=== PATIENT | female | born 1955 | race Caucasian/White ===

== ENCOUNTER → 2017-06-06 | Outpatient (REF) | payer BC ==
[2017-06-06 10:22] LABS: D-DIMER QUANT 451.7 ng/ml (<500)
[2017-06-06 10:37] LABS: URIC ACID 2.4 MG/DL (2.6-6.0)
[2017-06-06 10:38] LABS: ERYTHROCYTE SEDIMENTATION RATE 8 mm/hr (0-30)
== END ==
LOC: M LABDRAW1 09:41
DX: M25.561 Pain in right knee (principal); R60.9 Edema, unspecified
CPT/HCPCS: 84550

== ENCOUNTER → 2017-07-18 | Outpatient (CLI) | payer BC ==
[2017-07-18 16:37] LABS: BASO % 0.3 % (0.0-1.0); EOS # 0.1 10^3/uL (0.0-0.50); EOS % 0.5 % (0.0-3.0); HEMATOCRIT 45.9 % (36.0-47.0); IMMATURE GRANULOCYTE % 0.3 % (0-3.0); LYMPH # 2.6 10^3/uL (1.5-4.5); LYMPH % 27.6 % (24.0-44.0); MEAN CORPUSCULAR HGB CONC 32.7 g/dl (32.0-36.5); MEAN CORPUSCULAR VOLUME 88.8 fl (80.0-96.0); MONO # 0.4 10^3/uL (0.0-0.8); MONO % 4.3 % (0.0-5.0); NEUTROPHILS # 6.2 10^3/uL (1.8-7.7); PLATELET COUNT, AUTOMATED 197 10^3/uL (150-450); RED BLOOD COUNT 5.17 10^6/uL (4.00-5.40); RED CELL DISTRIBUTION WIDTH 12.2 % (11.5-14.5); WHITE BLOOD COUNT 9.2 10^3/uL (4.0-10.0)
[2017-07-18 16:54] LABS: FOLATE > 24.0 NG/ML; VITAMIN B12 LEVEL 1064 PG/ML
[2017-07-18 16:59] LABS: ERYTHROCYTE SEDIMENTATION RATE 2 mm/hr (0-30)
[2017-07-18 17:03] LABS: ALBUMIN 3.9 GM/DL (3.2-5.2); ALBUMIN/GLOBULIN RATIO 1.11 (1.00-1.93); ALKALINE PHOSPHATASE 88 U/L (45-117); ALT/SGPT 19 U/L (12-78); ANION GAP 4 MEQ/L (8-16); AST/SGOT 15 U/L (7-37); BILIRUBIN,TOTAL 0.4 MG/DL (0.2-1.0); BLOOD UREA NITROGEN 15 MG/DL (7-18); CALCIUM LEVEL 9.3 MG/DL (8.8-10.2); CARBON DIOXIDE LEVEL 28 MEQ/L (21-32); CHLORIDE LEVEL 107 MEQ/L (98-107); CREATININE FOR GFR 0.85 MG/DL (0.55-1.30); FREE T4 0.95 NG/DL (0.76-1.46); GLOMERULAR FILTRATION RATE > 60.0 (>45); GLUCOSE, FASTING 135 MG/DL (70-100); POTASSIUM SERUM 4.8 MEQ/L (3.5-5.1); SODIUM LEVEL 139 MEQ/L (136-145); TOTAL PROTEIN 7.4 GM/DL (6.4-8.2)
[2017-07-20 14:16] LABS: Lyme Disease IgG/IgM Antibodie <0.91 ISR (0.00-0.90); Lyme Disease IgM Ab Quantitati <0.80 index (0.00-0.79)
== END ==
LOC: M WUC 13:42
DX: R03.0 Elevated blood-pressure reading, without diagnosis of hypertension (principal)
CPT/HCPCS: 82746

== ENCOUNTER 2018-03-27 07:28 | Emergency (ER) | payer BC ==
[2018-03-27 08:09] LABS: BASO % 0.4 % (0.0-1.0); EOS # 0.1 10^3/uL (0.0-0.50); EOS % 0.9 % (0.0-3.0); HEMOGLOBIN 14.6 g/dl (12.0-15.5); IMMATURE GRANULOCYTE % 0.3 % (0-3.0); LYMPH # 2.7 10^3/uL (1.5-4.5); LYMPH % 39.6 % (24.0-44.0); MEAN CORPUSCULAR HEMOGLOBIN 29.1 pg (27.0-33.0); MEAN CORPUSCULAR HGB CONC 33.2 g/dl (32.0-36.5); MEAN CORPUSCULAR VOLUME 87.6 fl (80.0-96.0); MONO # 0.4 10^3/uL (0.0-0.8); NEUTROPHILS # 3.6 10^3/uL (1.8-7.7); NEUTROPHILS % 52.8 % (36.0-66.0); PLATELET COUNT, AUTOMATED 178 10^3/uL (150-450); RED BLOOD COUNT 5.02 10^6/uL (4.00-5.40); RED CELL DISTRIBUTION WIDTH 12.7 % (11.5-14.5); WHITE BLOOD COUNT 6.9 10^3/uL (4.0-10.0)
[2018-03-27] MEDS: PANTOPRAZOLE 40MG INJ (PROTONIX) (C9113) IV (08:14)
[2018-03-27] MEDS: GI COCKTAIL 50ML BTL(HYOSCYAMINE/MAALOX/LIDOCAINE VISCOUS)(1:3:1) PO (08:14)
[2018-03-27 08:26] LABS: INR 1.03; PROTHROMBIN TIME 13.6 SECONDS (12.1-14.4)
[2018-03-27 08:27] LABS: PARTIAL THROMBOPLASTIN TIME 32.3 SECONDS (25.4-37.6)
[2018-03-27 08:32] LABS: ALBUMIN 3.8 GM/DL (3.2-5.2); ALBUMIN/GLOBULIN RATIO 1.12 (1.00-1.93); ALKALINE PHOSPHATASE 72 U/L (45-117); ALT/SGPT 26 U/L (12-78); ANION GAP 7 MEQ/L (8-16); AST/SGOT 18 U/L (7-37); BILIRUBIN,DIRECT 0.2 MG/DL (0.0-0.2); BILIRUBIN,TOTAL 0.7 MG/DL (0.2-1.0); BLOOD UREA NITROGEN 7 MG/DL (7-18); CALCIUM LEVEL 9.1 MG/DL (8.8-10.2); CARBON DIOXIDE LEVEL 28 MEQ/L (21-32); CHLORIDE LEVEL 104 MEQ/L (98-107); CPK CREATINE PHOSPHOKINASE 130 U/L (26-192); CREATININE FOR GFR 0.71 MG/DL (0.55-1.30); GLOMERULAR FILTRATION RATE > 60.0 (>45); GLUCOSE, FASTING 96 MG/DL (70-100); LIPASE 95 U/L (73-393); MB/CK RELATIVE INDEX 1.85 (< OR =4); POTASSIUM SERUM 3.5 MEQ/L (3.5-5.1); SODIUM LEVEL 139 MEQ/L (136-145); TOTAL PROTEIN 7.2 GM/DL (6.4-8.2); TROPONIN I < 0.02 NG/ML (< 0.10)
[2018-03-27] MEDS: GASTROGRAFIN SOLUTION 30ML PO ×2 (10:05→10:31)
[2018-03-27] MEDS ORDERED: ISOVUE-370 76% 100ML VIAL (Q9967) As Ordered (11:19)
== END 2018-03-27 12:37 | disposition home or self-care (01) ==
LOC: M ED 07:28
DX: R10.13 Epigastric pain (principal); K86.9 Disease of pancreas, unspecified; K21.9 Gastro-esophageal reflux disease without esophagitis; Z86.19 Personal history of other infectious and parasitic diseases; Z91.030 Bee allergy status
CPT/HCPCS: C9113

== ENCOUNTER → 2018-08-19 | Outpatient (REF) | payer BC ==
[~2018-08-19] MED LIST: AUGM500T34 PO; NORC1TAB5 PO; PROT1TAB2 PO; TUMS500C PO
[2018-08-21 14:34] LABS: HPV HYBRID CAPTURE II Negative (Negative)
== END ==
LOC: M SFHCWAGY 12:11
PROVIDERS: ATTEND Nurse Practitioner Family
DX: Z12.4 Encounter for screening for malignant neoplasm of cervix (principal)
CPT/HCPCS: 87624; G0123

== ENCOUNTER → 2018-08-26 | Outpatient (CLI) | payer BC ==
--- NOTE | 2018-08-27 04:41 | REP ---
Clinical: Pelvic pain. Right ovarian cyst . Technique: Transabdominal pelvic ultrasound followed by transvaginal examination for better evaluation of the endometrium and adnexa with color Doppler evaluation of the ovaries. Findings: Bladder is unremarkable and measures 8.5 x 10.4 x 7.3 cm . Heterogeneous anteverted uterus measures 8.3 x 3.9 x 5.5 cm. Incidental small parenchymal calcifications are suggested. The endometrial complex measures 13.1 mm thickness. No discrete uterine or endometrial abnormalities are appreciated. Right ovary measures 3.7 x 2.0 x 3.1 cm and includes 2.7 cm cyst. Left ovary measures 2.3 x 1.3 x 1.0 cm and appears normal. Impression: 1. Heterogeneous age-related changes to the uterus. 2. 2.7 cm right ovarian cyst.
== END ==
LOC: M WHC 09:10
PROVIDERS: ATTEND Nurse Practitioner Family
DX: N83.201 Unspecified ovarian cyst, right side (principal)

== ENCOUNTER → 2018-10-16 | Outpatient (CLI) | payer BC | LOC: M SMT 14:52 | PROVIDERS: ATTEND Obstetrics & Gynecology | DX: N83.299 Other ovarian cyst, unspecified side (principal) ==

== ENCOUNTER 2018-11-05 21:42 | Inpatient (IN) | payer BC ==
[~2018-11-05] VITALS: Ht 160 cm; Wt 66.1 kg
[2018-11-05 22:21] LABS: HEMATOCRIT 44.5 % (36.0-47.0); HEMOGLOBIN 14.7 g/dl (12.0-15.5); MEAN CORPUSCULAR VOLUME 90.8 fl (80.0-96.0); PLATELET COUNT, AUTOMATED 185 10^3/uL (150-450); WHITE BLOOD COUNT 11.3 10^3/uL (4.0-10.0)
[2018-11-05 22:47] LABS: ALBUMIN 3.8 GM/DL (3.2-5.2); ALT/SGPT 19 U/L (12-78); AMYLASE 64 U/L (25-115); BILIRUBIN,TOTAL 0.5 MG/DL (0.2-1.0); BLOOD UREA NITROGEN 12 MG/DL (7-18); CARBON DIOXIDE LEVEL 29 MEQ/L (21-32); CHLORIDE LEVEL 104 MEQ/L (98-107); CREATININE FOR GFR 0.83 MG/DL (0.55-1.30); GLOMERULAR FILTRATION RATE > 60.0 (>45); GLUCOSE, FASTING 111 MG/DL (70-100); LIPASE 91 U/L (73-393); POTASSIUM SERUM 3.9 MEQ/L (3.5-5.1); SODIUM LEVEL 139 MEQ/L (136-145); TOTAL PROTEIN 7.3 GM/DL (6.4-8.2)
[2018-11-05] MEDS ORDERED: NS 1,000 ML IV ONE (23:00)
[2018-11-05] MEDS ORDERED: DICYCLOMINE 10 MG CAP PO ONE (23:00)
[2018-11-05 23:19] LABS: APPEARANCE, URINE CLEAR (CLEAR); BACTERIA, URINE AUTO NEGATIVE (NEGATIVE); BILIRUBIN, URINE AUTO NEGATIVE (NEGATIVE); BLOOD, URINE BLOOD NEGATIVE (NEGATIVE); COLOR, URINE YELLOW (YELLOW); GLUCOSE, URINE (UA) AUTO NEGATIVE (NEGATIVE); KETONE, URINE AUTO 1+ mg/dL (NEGATIVE); LEUKOCYTE ESTERASE, URINE AUTO NEGATIVE (NEGATIVE); MUCUS, URINE SMALL (NEGATIVE); NITRITE, URINE AUTO NEGATIVE (NEGATIVE); PROTEIN, URINE AUTO NEGATIVE (NEGATIVE); RBC, URINE AUTO 4 /HPF (0-3); SPECIFIC GRAVITY URINE AUTO 1.028 (1.002-1.035); SQUAMOUS EPITHELIAL CELL UR AU 0 /HPF (0-6); UROBILINOGEN, URINE AUTO 0.2 mg/dL (0.0-2.0); WBC, URINE AUTO 0 /HPF (0-3)
[2018-11-06] MEDS ORDERED: MORPHINE 4 MG/ML 1ML VIAL/SYRINGE (J2270) IV ONE ×2 (00:15→05:00)
[2018-11-06] MEDS ORDERED: ISOVUE-370 76% 100ML VIAL (Q9967) As Ordered ONE (00:24)
[2018-11-06] MEDS ORDERED: ONDANSETRON 4MG/2ML VIAL (J2405) IV ONE (01:00)
[2018-11-06] MEDS ORDERED: fentaNYL 100 MCG/2 ML INJECTION (J3010) IV ONE (01:45)
--- NOTE | 2018-11-06 03:36 | REPVR ---
EXAM: CT Abdomen and Pelvis With Contrast EXAM DATE/TIME: 11/06/2018 12:32 AM CLINICAL HISTORY: 63 years old, female; Abdominal pain; Localized; Lower; Additional info: Lower abd pain severe, radiates to back TECHNIQUE: Imaging protocol: Axial computed tomography images of the abdomen and pelvis with intravenous contrast. Coronal and sagittal reformatted images were created and reviewed. Radiation optimization: All CT scans at this facility use at least one of these dose optimization techniques: automated exposure control; mA and/or kV adjustment per patient size (includes targeted exams where dose is matched to clinical indication); or iterative reconstruction. Contrast material: ISOVUE 370; Contrast volume: 100 ml; Contrast route: IV; COMPARISON: CT ABD/PEL W/IV ORAL CONTRAS 03/27/2018 11:15 AM FINDINGS: Liver: Within the left hepatic lobe, there is a 7 mm hypodense lesion. This is too small to characterize further, but stable compared to the prior study. Within the left hepatic lobe anteriorly, a 0.7 x 0.5 cm enhancing lesion is identified, which is stable in size and previously described as a hemangioma. Additional enhancing pathology cannot be excluded. Gallbladder and bile ducts: The gallbladder is partially contracted, without discrete gallstones. No ductal dilation. Pancreas: A few surgical clips are identified adjacent to the body of the pancreas with interval resolution of the enhancing lesion described in the previous CT. These postoperative changes are new. Spleen: Normal. No splenomegaly. Adrenals: No mass. Kidneys and ureters: Unremarkable as visualized. No hydronephrosis. Stomach and bowel: There is significant wall thickening of the antrum of the stomach, suggestive of gastritis. Small bowel wall thickening is visualized, including the duodenum, suggestive of enteritis. There is gaseous and fecal distention of bowel within the anterior pelvis, consistent with the cecum. The cecum has migrated from the right lower quadrant. There is narrowing of the proximal ascending colon which is transversely oriented. Early cecal volvulus cannot be excluded. Mildly prominent small bowel loops are visualized within the pelvis with an air-fluid level. Appendix: Not visualized. Intraperitoneal space: There is mild stranding of the abdominal pelvic peritoneum, which is suggestive of inflammation, infection, or ischemic change. Mild abdominal and pelvic ascites is visualized, which is new. 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 Lymph nodes: A subcentimeter right pericardial lymph node is visualized. Bladder: Unremarkable as visualized. Reproductive: Prominent uterine vessels are identified. Bones/joints: Hypertrophic degenerative changes are noted within the spine. Slight anterolisthesis of L3 on L4 and L4 on L5. Soft tissues: Unremarkable. IMPRESSION: 1. There is significant wall thickening of the antrum of the stomach, suggestive of gastritis. Small bowel wall thickening is visualized, including the duodenum, suggestive of enteritis. 2. There is mild stranding of the abdominal pelvic peritoneum. Differential considerations include inflammation, infection, and ischemic change. 3. There is gaseous and fecal distention of bowel within the anterior pelvis, consistent with the cecum. The cecum has migrated from the right lower quadrant. There is narrowing of the proximal ascending colon which is transversely oriented. Early cecal volvulus cannot be excluded. A follow-up CT abdomen/pelvis is recommended. 4. A few surgical clips are identified adjacent to the body of the pancreas with interval resolution of the enhancing lesion described in the previous CT. These postoperative changes are new. 5. Mild abdominal and pelvic ascites is visualized, which is new. 6. Within the left hepatic lobe, there is a 7 mm hypodense lesion. This is too small to characterize further, but stable compared to the prior study. Within the left hepatic lobe anteriorly, a 0.7 x 0.5 cm enhancing lesion is identified, which is stable in size and previously described as a hemangioma. Additional enhancing pathology cannot be excluded. 7. 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 8. Additional findings described above. Electronically signed by: Olivier Au On 11/06/2018 03:35:55 AM
[2018-11-06] MEDS ORDERED: NS 500 ML IV ONE (05:00)
[2018-11-06] MEDS ORDERED: VITA400C56 PO (05:33)
[2018-11-06] MEDS ORDERED: GLUCTAB6 PO (05:33)
[2018-11-06] MEDS ORDERED: CALC500T38 PO (05:33)
[2018-11-06] MEDS ORDERED: [UNRECOGNIZED DRUG - OTHER] PO (05:33)
[2018-11-06] MEDS ORDERED: HYDR1CRE TOP (05:33)
[2018-11-06] MEDS ORDERED: VITMTA PO (05:33)
[2018-11-06] MEDS ORDERED: ACET160T4 PO (05:33)
[2018-11-06] MEDS ORDERED: TURM1CAP5 PO (05:33)
[2018-11-06] MEDS ORDERED: D3 H2000 PO (05:33)
[2018-11-06] MEDS ORDERED: BACITAB PO (05:33)
--- NOTE | 2018-11-06 05:42 | HPEPDOC ---
General Date of Admission 11/06/2018 Date of Service: Nov 06, 2018 Attending Physician: KALEIGH CACERES MD Chief Complaint The patient is a 63-year-old female admitted with a reason for visit of [place] nix. Source: Patient History of Present Illness Patient is a 63-year-old female, presenting to the emergency room on account of abdominal pain. Abdominal pain was of sudden onset yesterday afternoon after eating a large amount of pizza. There was no other associated symptom, there was no nausea, dose, no diarrhea, patient had regular bowel movement. Today, she did not eat a whole lot, but after suppertime pain was worse. She described the pain as a sharp, constant pain, with radiation to her back. On evaluation in the emergency room, CT abdomen and pelvis showed significant wall thickening of the antrum of the stomach suggestive of gastritis. There was also small bowel wall thickening visualized including duodenum suggestive of enteritis. There was also mild stranding of abdominal pelvic peritoneum with differential for inflammation, infection, ischemic change. Patient denied any chills, fever, chest pain, shortness of breath. Home Medications Scheduled Ascorbate Calcium (Vitamin C) 500 Mg Tablet, 500 MG PO DAILY, (Reported) Cholecalciferol (Vitamin D3) (Vitamin D3) 2,000 Unit Capsule, 2,000 UNIT PO DAILY, (Reported) Gluc Powell/Chondro Powell A/Vit C/Mn (Glucosamine Chondroitin Tab) 1 Each Tablet, 1 TAB PO DAILY, (Reported) L.acidoph/L.bulg/B.bif/S.therm (Bacid Caplet) 1 Each Tablet, 1 TAB PO DAILY, (Reported) Multivitamins (Thera M Plus Tablet) 1 Each Tablet, 1 TAB PO DAILY, (Reported) Turmeric/Turmeric Ext/Pepr Ext (Turmeric Complex 500 mg Cap) 1 Each Capsule, 1 CAP PO DAILY, (Reported) Vitamin E (Vitamin E) 400 Unit Capsule, 400 UNIT PO DAILY, (Reported) [Gastromend] , 2 CAP PO BID, (Reported) 1000, 1600 Scheduled PRN Acetaminophen (Children's Tylenol) 160 Mg Tab.chew, 320 MG PO Q4H PRN for PAIN / FEVER, (Reported) Hydrocortisone (Hydrocortisone) 453.6 Gm Cream..g., 1 DOSE TOP BID PRN for ITCHING, (Reported) ON STOMACH NEEDED Allergies Coded Allergies: bee venom protein (honey bee) (Verified Allergy, Unknown, 11/05/18) Past Medical History Medical History Paraganglioma tumor. GERD Surgical History Paraganglioma removal Appendectomy. Family History Father: CAD Mother: Breast cancer Social History * Smoker: Denies Alcohol: Denies Drugs: denies A-FIB/CHADSVASC A-FIB History Current/History of A-Fib/PAF?: No Current PO Anticoag Therapy: No Review of Systems Other systems A 10 point pertinent review of systems was completed, negative except as stated in the history of presenting illness. Physical Examination Other physical findings GENERAL: NAD SKIN : Warm, dry intact HEENT: Atraumatic, normocephalic, PERRL, moist mucous membrane CARDIOVASCULAR: Regular rate and rhythm, S1S2, no JVD, no edema, distal pulses + and palpable RESP: CTAB, no accessory muscle use noted ABDOMEN: BS+, distended +tender MS: no joint deformities NEURO: Alert and oriented x 3, CN2-12 grossly intact PSYCH: no anxiety or agitation, appropriate mood and affect. Vital Signs Vital Signs Date Time Temp Pulse Resp B/P (MAP) Pulse Ox O2 Delivery O2 Flow Rate FiO2 11/06/18 05:02 98.0 84 18 164/89 (114) 97 Room Air Laboratory Data Labs 24H Laboratory Tests 2 11/05/18 22:03: Urine Appearance CLEAR, Urine Color YELLOW, Urine pH 5.0, Urine Specific [place] 1.028, Urine Protein NEGATIVE, Urine Glucose (UA) NEGATIVE, Urine Ketones 1+H, Urine Urobilinogen 0.2, Urine Bilirubin NEGATIVE, Urine Leukocyte Esterase NEGATIVE, Urine Blood NEGATIVE, Urine Nitrite NEGATIVE, Urine WBC (Auto) 0, Urine RBC (Auto) 4H, Urine Hyaline Casts (Auto) 0, Urine Bacteria (Auto) NEGATIVE, Urine Squamous Epithelial Cells 0, Urine Mucus (Auto) SMALL, Urine Sperm (Auto) 11/05/18 22:13: Nucleated Red Blood Cells % (auto) 0.0, Anion Gap 6L, Glomerular Filtration Rate > 60.0, Blood Urea Nitrogen 12, Creatinine 0.83, Sodium Level 139, Potassium Level 3.9, Chloride Level 104, Carbon Dioxide Level 29, Calcium Level 9.0, Aspartate Amino Transf (AST/SGOT) 17, Alanine Aminotransferase (ALT/SGPT) 19, Alkaline Phosphatase 80, Total Bilirubin 0.5, Total Protein 7.3, Albumin 3.8, Albumin/Globulin Ratio 1.09, Amylase Level 64, Lipase 91 11/06/18 03:59: Lactic Acid Level 0.8 CBC/BMP Laboratory Tests 11/05/18 22:13 Red Blood Count 4.90, Mean Corpuscular Volume 90.8, Mean Corpuscular Hemoglobin 30.0, Mean Corpuscular Hemoglobin Concent 33.0, Red Cell Distribution Width 12.5, Calcium Level 9.0, Aspartate Amino Transf (AST/SGOT) 17, Alanine Aminotransferase (ALT/SGPT) 19, Alkaline Phosphatase 80, Total Bilirubin 0.5, Total Protein 7.3, Albumin 3.8 Assessment/Plan Acute gastroenteritis -Elevated white blood count 11.3, but localized symptoms reported by patient -Gastric rest, normal saline at 100 mL per hour -. Keep nothing by mouth -Protonix twice a day IV -Advance diet based on tolerance DVT prophylaxis -Lovenox daily Advanced care planning -CODE STATUS is full resuscitation Plan / VTE VTE Prophylaxis Ordered?: Yes ALENA CARLTONP Nov 06, 2018 05:42
[2018-11-06] MEDS: NS 1,000 ML IV SCH ×2 (05:46→15:26)
[2018-11-06] MEDS: ENOXAPARIN 40 MG/0.4 ML SYRINGE (J1650) SC SCH (10:22)
[2018-11-06] MEDS: PANTOPRAZOLE 40MG INJ (PROTONIX) (C9113) IV SCH ×2 (10:22→21:49)
--- NOTE | 2018-11-06 12:25 | IPN ---
DATE: 11/06/2018 Allyssa was admitted with abdominal pain in the hospitalist service. She was seen in an interim bed. She had abrupt onset of lower abdominal pain, distention, and nausea. Two days ago it has gotten worse over the last few days, she came to the emergency room, she had a CT abdomen and pelvis that suggested gastritis. They also made note of gaseous distention, fecal distention in the cecum which was narrowed at the proximal ascending colon suggesting possible early cecal volvulus. She has a medical history significant for an appendectomy a few years ago by Dr. Page. In April of this year she underwent removal of a paraganglioma at [facility], it was completely excised. Other than that she just has a history of reflux. When I went to see her in the emergency room she had vomited for the first time and felt that her abdomen had become more distended. PHYSICAL EXAM: 143/89, pulse 62, respiratory rate 18, 100% Oxygen saturation. General appearance: Resting comfortably, no distress. HEENT: Unremarkable. Lungs are clear. Heart regular rhythm. Abdomen soft, distended, bowel sounds are present, most tenderness in lower abdomen, no epigastric pain, no peripheral edema. LABS: Were not repeated this morning. IMPRESSION: Abdominal pain. I am skeptical this is related to gastritis. Most of her pain is lower abdomen and there is quite a bit of distention. Possible of cecal volvulus is present. I spoke with Dr. Lassiter who is covering surgical consult today. He will seen the patient in consultation. Repeat CT of the abdomen and pelvis is advised. I had originally had ordered this but cancelled the order after discussion with Dr. Lassiter as I would rather he asses the patient and decide whether he wants oral contrast, IV contrast etc. IV fluids ordered. Patient is nothing by mouth. Pain medications have been ordered. Deep vein thrombosis prophylaxis is ordered.
[2018-11-06] MEDS ORDERED: ONDANSETRON 4MG/2ML VIAL (J2405) IV PRN ×2 (12:30→20:00)
--- NOTE | 2018-11-06 14:58 | REP ---
CT ABDOMEN AND PELVIS WITHOUT CONTRAST: CT abdomen and pelvis performed without oral or IV contrast. Sagittal and coronal reconstruction images are performed. This is a followup exam to the study 11/06/2018 at 12:33 a.m. Visualized lung bases demonstrate mild fibroatelectatic changes. Contrast material is seen in the gallbladder. The liver, spleen, adrenals, pancreas, and kidneys are grossly unremarkable and unchanged. Metallic clips are again seen in the region of the pancreatic head. No gross adenopathy is seen. There is again dilatation of the cecum with a segment of diffuse narrowing of the ascending colon. The adjacent mesentery is diffusely edematous and appears somewhat twisted. The findings are most consistent with cecal volvulus. There is mild free fluid in the pelvis. Contrast is seen in the mildly distended bladder. There is no free air. IMPRESSION: Findings most consistent with cecal volvulus. Cecum is moderately distended. There is segmental narrowing of the ascending colon with adjacent mesenteric edema and apparent mesenteric twisting. Mild free fluid in the pelvis. No free air. Electronically Signed by Braydon Sky MD 11/09/2018 06:29 P
[2018-11-06 15:56] VITALS: BP 135/63
[2018-11-06] MEDS ORDERED: ONDANSETRON 4MG/2ML VIAL (J2405) As Ordered ONE (16:35)
[2018-11-06] MEDS ORDERED: ROCURONIUM BROMIDE 50 MG/5 ML VIAL As Ordered ONE ×2 (16:35→17:59)
[2018-11-06] MEDS ORDERED: dexameTHASONE 4 MG/ML 1ML VIAL (J1100) As Ordered ONE (16:35)
[2018-11-06] MEDS ORDERED: propofoL 200 MG/20 ML VIAL As Ordered ONE (16:35)
[2018-11-06] MEDS ORDERED: LIDOCAINE 2% INJ 100 MG/5 ML SDV (FOR ANES.) As Ordered ONE (16:35)
[2018-11-06] MEDS ORDERED: fentaNYL 250 MCG/5 ML INJECTION (J3010) As Ordered ONE (16:39)
[2018-11-06] MEDS ORDERED: MIDAZOLAM INJ 2 MG/2 ML VIAL (J2250) As Ordered ONE (16:39)
[2018-11-06] MEDS ORDERED: BUPIVACAINE HCL 0.25% 30 ML VIAL As Ordered ONE (16:44)
[2018-11-06] MEDS ORDERED: LIDOCAINE 1% SDV INJ 30 ML VIAL As Ordered ONE (16:44)
[2018-11-06] MEDS ORDERED: UNASYN 1.5 GM VIAL As Ordered ONE (16:53)
--- NOTE | 2018-11-06 17:05 | CR.PDOC ---
General Surgery Consultation Date of Consultation 11/06/18 History and Physical CONSULT REPORT FOR: Torey Muñoz MD REASON FOR CONSULTATION: abdominal pain ?cecal volvulus HISTORY OF PRESENT ILLNESS: Patient admitted in the hospital overnight with complaints of a 2 day history of generalized abdominal pain. Patient reports she was in her usual state of health when after eating pizza last Sunday started having sudden onset of generalized crampy, colicky abdominal pain. This persisted through Sunday evening that that time patient was not having any nausea, she did have a bowel movement Sunday which was normal but this didn't relieve her pain or discomfort. She tried to eat some cereal but got her nauseated. The pain persisted and worsened throughout the day that she presented to the emergency room last night. Overnight patient continues to have sharp mid lower abdominal pain with radiation to both right and left abdomen as well as to her back and through to this morning was nauseated and burping. She does not re call passing any flatus. She did have a small bowel movement last night. She threw up this morning. Patient continues to complain of discomfort. On evaluation in the emergency room there was a suspicion of possible cecal volvulus on initial CT done yesterday evening. There were also some other findi ngs of possible duodenitis, enteritis, gastritis. Her pain is mainly centered in the mid lower abdomen and periumbilical area. She denies any prior episodes of similar symptoms, any prior episodes of peptic ulcer disease. 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 She does not have any prior episodes of bowel obstruction. She had an appendectomy back in 2016. She had prior imaging that shows the cecum was previously located at the right lower quadrant area which is no longer the case on her most recent imaging. I was asked to consult and see her with regards to possibility of her having cecal volvulus.. Me seeing hernias for a repeat noncontrast CT of the abdomen to evaluate for any interval changes. Time that I saw her she continues to have discomfort on her mid lower abdomen. She's been afebrile throughout her stay here in the hospital, hemodynamically stable. She continues not to be able to pass flatus and has been burping and mildly nauseated. PAST MEDICAL HISTORY: Paraganglioma tumor. gastroesophageal reflux disease PAST SURGICAL HISTORY: INCLUDES: 1. Paraganglioma removal via an open exploration at the upper midline done at [facility] in April 2018 2. Laparoscopic appendectomy Appendectomy In 2016 3. section PREVIOUS ANESTHESIA REACTIONS: Denies ALLERGIES: Please see below. FAMILY HISTORY: Noncontributory. HOME MEDICATIONS: Please see below. REVIEW OF SYSTEMS: GENERAL: Denies chills, reports weight gain, reports feeling febrile yesterday. Patient was in her usual state of health prior to start her symptoms Sunday HEENT: Denies blurred vision and double vision. Denies ear symptoms. Denies hoarseness. NECK: Denies any neck pain CARDIOVASCULAR: Denies chest pain and palpitations. MUSCULOSKELETAL: Denies arthralgias, back pain and thrombophlebitis. SKIN: Denies rash. NEUROLOGIC: Denies headache, stroke and transient ischemic attack. PSYCHIATRIC: Denies anxiety and depression. ENDOCRINE: Denies thyroid disease. HEMATOLOGY/ONCOLOGY: Denies bleeding or clotting disorder. HEART: Denies any chest pains, palpitations, paroxysmal dyspnea, orthopnea. PULMONARY: Denies chronic cough, dyspnea and wheezing. GASTROINTESTINAL: See HPI. Patient reports episodes of diarrhea, prior history of C. difficile infection. GENITOURINARY: Denies dysuria, frequency, hematuria and nocturia. ENDOCRINE: Denies polydipsia, polyphagia, polyuria, heat or cold intolerance. INFECTIOUS: Denies any recent upper respiratory tract infection, UTI, need for use of antibiotics. NUTRITION: Reports poor appetite since start of symptoms. PHYSICAL EXAMINATION: VITALS SIGNS: Please see below. GENERAL APPEARANCE:Patient seen, laying in bed, awake, alert, and oriented. Mildly uncomfortable, in no acute distress. SKIN: Warm and dry. HEENT: Normocephalic, atraumatic. [place] palpebral conjunctiva, anicteric sclerae. Lips and mucosa appear mildly dry. NECK: Supple, no thyromegaly. No obvious jugular venous distention. LUNGS: Clear to auscultation bilaterally. No wheezing appreciated. HEART: No chest wall abnormalities. Regular rate and rhythm with no murmurs appreciated. ABDOMEN: Abdomen is mildly distended, soft, healed upper midline incision, Pfannenstiel incision. Slightly more prominent lower abdomen and slightly more distended. She has tenderness on the lower abdomen at the midline periumbilical area with slight referred tenderness to the right side when palpating on the left lower abdomen. I did not appreciate any rebound or guarding. She is nontender in the upper abdomen and epigastric area. EXTREMITIES: Extremities have no deformities. No edema identified ANCILLARIES: . LABORATORY DATA: Please see below. IMAGING STUDIES: CT scan abdomen and pelvis Findings most consistent with cecal volvulus. Cecum is moderately distended. There is segmental narrowing of the ascending colon with adjacent mesenteric edema and apparent mesenteric twisting. Mild free fluid in the pelvis. No free air. IMPRESSION AND PLAN: Cecal volvulus with partial bowel obstruction Patient has been having symptoms for 3 days now and has continued evidence of partial bowel obstruction with her cecum appearing to be moderately distended, tapering off the ascending colon in the cecum was been displaced towards the left side with tethering of the involved vessels consistent with a transaxial rotation at the cecum or cecal volvulus. There is no signs of peritonitis on examination. No free air or pneumatosis on imaging. She has a normal lactic acid on her laboratories. So most likely she does not have FULL on ischemia or necrosis of the involved bowels but certainly this would be at risk of ischemia and even perforation if this persists, worsens or evolves to a full on mesenteric twist. She does have some evidence of a localized acute inflammation in the abdomen involving the peritoneum, mild ascites, the involved vessels and bowels. As this has been present for roughly 3 days now, unlikely that this is to resolve. I think the most prudent step will be to bring her to the operating room in to evaluate for the reason for the cecal volvulus. This may or may not be related to the adhesions from her most recent surgery but certainly this involves a very mobile cecum to allow for the transaxial rotation. This most likely will require some lysis of adhesion and some form of cecopexy versus performing an ileocecal resection. Have discussed with her the rationale, risks and benefits of either procedure. We will start with laparoscopy but there is a good possibility to me and I'll then need an open laparotomy incision. I further discussed with her the expected postoperative course. Consent was obtained from the patient after answering her questions. She also had her daughter on the phone and I have explained to her condition to return when we need to go to surgery and answered her questions. Vital Signs Vital Signs Date Time Temp Pulse Resp B/P (MAP) Pulse Ox O2 Delivery O2 Flow Rate FiO2 11/06/18 10:30 62 143/89 (107) 100 Nasal Cannula 2.0 11/06/18 05:46 16 11/06/18 05:02 98.0 I&Os I&O- Last 24 Hours up to 6 AM 11/06/18 06:00 Intake Total 1000 ml Balance 1000 ml Laboratory Data Labs 24H Laboratory Tests 2 11/05/18 22:03: Urine Appearance CLEAR, Urine Color YELLOW, Urine pH 5.0, Urine Specific [place] 1.028, Urine Protein NEGATIVE, Urine Glucose (UA) NEGATIVE, Urine Ketones 1+H, Urine Urobilinogen 0.2, Urine Bilirubin NEGATIVE, Urine Leukocyte Esterase NEGATIVE, Urine Blood NEGATIVE, Urine Nitrite NEGATIVE, Urine WBC (Auto) 0, Urine RBC (Auto) 4H, Urine Hyaline Casts (Auto) 0, Urine Bacteria (Auto) NEGATIVE, Urine Squamous Epithelial Cells 0, Urine Mucus (Auto) SMALL, Urine Sperm (Auto) 11/05/18 22:13: Nucleated Red Blood Cells % (auto) 0.0, Anion Gap 6L, Glomerular Filtration Rate > 60.0, Blood Urea Nitrogen 12, Creatinine 0.83, Sodium Level 139, Potassium Level 3.9, Chloride Level 104, Carbon Dioxide Level 29, Calcium Level 9.0, Aspartate Amino Transf (AST/SGOT) 17, Alanine Aminotransferase (ALT/SGPT) 19, Alkaline Phosphatase 80, Total Bilirubin 0.5, Total Protein 7.3, Albumin 3.8, Albumin/Globulin Ratio 1.09, Amylase Level 64, Lipase 91 11/06/18 03:59: Lactic Acid Level 0.8 CBC/BMP Laboratory Tests 11/05/18 22:13 Red Blood Count 4.90, Mean Corpuscular Volume 90.8, Mean Corpuscular Hemoglobin 30.0, Mean Corpuscular Hemoglobin Concent 33.0, Red Cell Distribution Width 12.5, Calcium Level 9.0, Aspartate Amino Transf (AST/SGOT) 17, Alanine Aminotransferase (ALT/SGPT) 19, Alkaline Phosphatase 80, Total Bilirubin 0.5, Total Protein 7.3, Albumin 3.8 Home Medications Scheduled Ascorbate Calcium (Vitamin C) 500 Mg Tablet, 500 MG PO DAILY, (Reported) Cholecalciferol (Vitamin D3) (Vitamin D3) 2,000 Unit Capsule, 2,000 UNIT PO DAILY, (Reported) Gluc Powell/Chondro [place] A/Vit C/Mn (Glucosamine Chondroitin Tab) 1 Each Tablet, 1 TAB PO DAILY, (Reported) L.acidoph/L.bulg/B.bif/S.therm (Bacid Caplet) 1 Each Tablet, 1 TAB PO DAILY, (Reported) Multivitamins (Thera M Plus Tablet) 1 Each Tablet, 1 TAB PO DAILY, (Reported) Turmeric/Turmeric Ext/Pepr Ext (Turmeric Complex 500 mg Cap) 1 Each Capsule, 1 CAP PO DAILY, (Reported) Vitamin E (Vitamin E) 400 Unit Capsule, 400 UNIT PO DAILY, (Reported) [Gastromend] , 2 CAP PO BID, (Reported) 1000, 1600 Scheduled PRN Acetaminophen (Children's Tylenol) 160 Mg Tab.chew, 320 MG PO Q4H PRN for PAIN / FEVER, (Reported) Hydrocortisone (Hydrocortisone) 453.6 Gm Cream..g., 1 DOSE TOP BID PRN for ITCHING, (Reported) ON STOMACH NEEDED Allergies Coded Allergies: bee venom protein (honey bee) (Verified Allergy, Unknown, 11/05/18) JOSE HOOVER MD Nov 06, 2018 15:57
[2018-11-06] MEDS ORDERED: BUPIVACAINE LIPOSOME/PF 1.3% 20ML VIAL (13.3MG/ML)(EXPAREL)(C9290 PER1MG) As Ordered ONE (17:23)
[2018-11-06] MEDS ORDERED: SUGAMMADEX SODIUM 500 MG/5 ML VIAL (BRIDION) As Ordered ONE (17:48)
[2018-11-06] MEDS ORDERED: ACETAMINOPHEN 1000MG 100ML IV BTL (OFIRMEV) (J0131 PER 10MG) As Ordered ONE (17:49)
[2018-11-06] MEDS ORDERED: KETOROLAC 60 MG/2 ML VIAL (J1885) As Ordered ONE (18:11)
[2018-11-06] MEDS ORDERED: fentaNYL 100 MCG/2 ML INJECTION (J3010) As Ordered ONE (18:23)
[2018-11-06] MEDS ORDERED: METOCLOPRAMIDE INJ 10MG/2ML VIAL (J2765) IV PRN (20:00)
[2018-11-06] MEDS ORDERED: LR 1,000 ML IV SCH (20:00)
[2018-11-06] MEDS ORDERED: fentaNYL 100 MCG/2 ML INJECTION (J3010) IV PRN (20:00)
[2018-11-06] MEDS ORDERED: PERCOCET 5MG/325MG TAB PO PRN (20:00)
[2018-11-06] MEDS ORDERED: MEPERIDINE INJ 25 MG/ML VIAL (J2175) IV PRN (20:00)
[2018-11-06 20:18] LABS: AMYLASE, BODY FLUID 34 U/L (NOT ESTABLISHED); SOURCE, BODY FLUID AMYLASE PERITONEAL; SOURCE, BODY FLUID LIPASE PERITONEAL
[2018-11-06 20:30] VITALS: BP 135/94
[2018-11-06 21:00] VITALS: BP 157/80
[2018-11-06] MEDS: LR 1,000 ML IV SCH (21:50)
[2018-11-06 22:00] VITALS: BP 135/74
[2018-11-06 23:00] VITALS: BP 133/81
[2018-11-07] VITALS (7 sets, daily range): BP systolic 114–151; BP diastolic 62–82
[2018-11-07] MEDS: PIPERACILLIN/TAZOBACTAM SOD 3.375 GM in D5W MINI-BAG PLUS 50 ML IV SCH ×5 (00:53→23:30)
[2018-11-07] MEDS: LR 1,000 ML IV SCH (05:45)
[2018-11-07 06:25] LABS: BASO % 0.2 % (0.0-1.0); EOS # 0.1 10^3/uL (0.0-0.50); EOS % 0.6 % (0.0-3.0); HEMATOCRIT 38.8 % (36.0-47.0); LYMPH # 3.1 10^3/uL (1.5-4.5); LYMPH % 31.5 % (24.0-44.0); MEAN CORPUSCULAR HGB CONC 32.7 g/dl (32.0-36.5); MEAN CORPUSCULAR VOLUME 91.7 fl (80.0-96.0); MONO # 0.7 10^3/uL (0.0-0.8); MONO % 7.7 % (0.0-5.0); NEUTROPHILS # 5.8 10^3/uL (1.8-7.7); NEUTROPHILS % 59.6 % (36.0-66.0); PLATELET COUNT, AUTOMATED 137 10^3/uL (150-450); RED BLOOD COUNT 4.23 10^6/uL (4.00-5.40); WHITE BLOOD COUNT 9.7 10^3/uL (4.0-10.0)
[2018-11-07 06:30] LABS: HEMOGLOBIN 12.7 g/dl (12.0-15.5)
[2018-11-07 06:52] LABS: ALBUMIN 2.6 GM/DL (3.2-5.2); ALT/SGPT 14 U/L (12-78); AMYLASE 43 U/L (25-115); BILIRUBIN,TOTAL 0.8 MG/DL (0.2-1.0); BLOOD UREA NITROGEN 8 MG/DL (7-18); CALCIUM LEVEL 7.9 MG/DL (8.8-10.2); CARBON DIOXIDE LEVEL 30 MEQ/L (21-32); CHLORIDE LEVEL 109 MEQ/L (98-107); CREATININE FOR GFR 0.69 MG/DL (0.55-1.30); GLOMERULAR FILTRATION RATE > 60.0 (>45); GLUCOSE, FASTING 84 MG/DL (70-100); LIPASE 75 U/L (73-393); POTASSIUM SERUM 3.6 MEQ/L (3.5-5.1); SODIUM LEVEL 142 MEQ/L (136-145); TOTAL PROTEIN 5.7 GM/DL (6.4-8.2)
--- NOTE | 2018-11-07 08:11 | ROOPDOC ---
[facility] Report Of Operation Report of Operation DATE OF PROCEDURE: 11/06/18 PREPROCEDURE DIAGNOSES: Cecal Volvulus. POSTPROCEDURE DIAGNOSES: Small and large bowel obstruction secondary to intraabdominal adhesions, partial cecal volvulus, mobile cecum and right colon. ?intraabdominal abscess PROCEDURE: Diagnostic Laparoscopy, Laparoscopic Lysis of Adhesions, release of small and right colon obstruction with cecopexy. SURGEON: Lucas Medrano MD ANESTHESIA: General Anesthesia. ESTIMATED BLOOD LOSS: Approximately 20 mL. COMPLICATIONS: none. 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 PROCEDURE NOTE: Patient has a very mobile right colon as well as a long, tortuous transverse colon. Omental adhesions pulled the right colon towards the left side, left upper quadrant. There were also adhesions to the retroperitoneum and the distal ileum rotated underneath the cecum and caught with adhesions to the retroperitoneum and right lower quadrant forming an internal hernia compressing on the distal ileum causing obstruction at this point.I think this is the main obstructing point. The combination of the mobile right colon and tortuous transverse colon with rotation of the right colon to the left side of the abdomen maybe causing a partial cecal volvulus. DESCRIPTION OF PROCEDURE: Patient was given a dose of Unasyn 3 g IV for prophylactic antibiotic. She is brought to the operating room, placed supine on the table. Sequential Compression boots placed on both lower extremities for DVT prophylaxis. A Paulino catheter placed for urine output monitoring. Her abdomen was then prepped and draped widely in usual sterile fashion.We paused for a surgical timeout using both pre-incision safety checklist to verify correct patient, procedure site and additional clinical information prior to beginning the procedure I began the procedure using a left upper quadrant incision. A Veress needle was inserted in a controlled fashion. Intra-abdominal placement confirmed with saline drop technique. CO2 insufflation started to pressure 15 mmHg. There is uniform distention of the abdomen. Using the same incision a Veress needle was inserted in a controlled fashion. Incision site was inspected for injury and none was found. I used a 30 5 mm laparoscope for the procedure. Initial diagnostic laparoscopy shows minimal adhesions to the abdominal wall. The falciform ligament is either attenuated or has been fully dissected off the abdominal wall. There are markedly distended loops of bowel in the left upper quadrant and also in the midabdomen and towards the pelvis area and I could see the colon being rotated towards the mid abdomen though it was hard to initially differentiate if this was the cecum or transverse colon. There is some dense adhesion of omentum pulling the distal transverse colon towards the left upper quadrant area. There is also some adhesion that seems to tether some of the bowels including the cecum and the right colon and small bowel from the right lower quadrant to the middle of the abdomen. The colon itself seems to be movable left to right. I placed a 5 mm infraumbilical incision, a 5 mm left lower quadrant incision and later on in the 5 mm suprapubic incision on under direct guidance. Patient was repositioned multiple times to allow for gravity to full bowels away from our review. She was primarily positioned on a mild Trendelenburg, left side up position. I first tried to move the colon back to its anatomic position. There seems to be something tethering this to the mid abdomen which seems to be coming off posteriorly. This was initially difficult to find exactly where the cecum was. So I switched to following the distended loops of bowel to the terminal ileum. This was going underneath the loop of colon and the colon itself seems to be tethered retroperitoneally. I found the single thick band that was getting it to adhere to the retroperitoneum and this is where the small bowel passed through underneath the area causing an internal hernia. This was divided and the right c olon was released. I was able then to confirm that this was the area of the cecum and this was returned to its anatomic position to the right lower quadrant area. There is only flimsy lateral attachments of the cecum that was allowing it to rotate fully towards the left of the midline and this includes the ascending colon. She also has floppy and elongated transverse colon which was also partially tethered towards the left upper quadrant area starting from the distal transverse colon pulling this towards the left side. I then released the omental adhesions that was doing this and also the previously noted right quadrant adhesion. After doing this I was able to return both the right colon and transverse colon to its anatomic position. I then noticed that there was this milky thick fluid that was mainly located in the pelvis though there were some collections in the left upper quadrant area more likely dispersed from the pneumoperitoneum as well as from the position of the patient. I took some sample for culture likewise to test for amylase and lipase. I look for possible cause of this but I did not see any necrotic tissues or tissues or any other sites of inflammation or infection. The visible milky fluid collection was suctioned off. I then ran the bowel starting at the distended ligament of Treitz and bowel seems to be fully free at about the early ileum to started to get decompressed and back to its normal of diameter. Patient already had a previous appendectomy and I could see the staple lines from previous appendectomy. Other findings include a enlarged cystic ovary on the right side and most likely absence of an ovary on the left side the uterus is also mildly enlarged. The abdomen was then thoroughly irrigated until we had clear returns. At this point I then make decision whether to resect the cecum or create a cecopexy. I felt that the main cause of the rotation of the colon was more the postoperative adhesions though she would remain at risk for local volvulus due to the mobility of the right colon. All portions of the bowel seems to be healthy at this point and there was no signs of any ischemia or any persistent obstruction. Thus I made a decision to perform cecopexy incision for resection. I used 3-0V LOC to saw the cecum and part of the ascending colon to the right lower quadrant area. After this I left the 19 Nick drain through the left lower quadrant port and I placed this over in the pelvic area where we had most of the milky fluid collections. A final look at the bowels looks like the previously decompressed loops of bowel starting to fill up. Patient also is noticeably have lower hard stools on her right colon signifying constipation. I did not find any other significant findings. The abdomen was then deflated. All ports were removed. The drain was secured to the skin with 2-0 silk. All skin incisions closed with 4-0 Monocryl subcuticular fashion and Dermabond was used for postoperative dressings. Patient remained stable throughout the procedure she was successfully awakened and extubated and brought to the recovery room in stable condition. LUCAS HOOVER MD Nov 07, 2018 08:11
[2018-11-07] MEDS ORDERED: MIRALAX *UNIT DOSE* 17GM PACKET PO ONE (08:45)
[2018-11-07] MEDS: PANTOPRAZOLE 40MG INJ (PROTONIX) (C9113) IV SCH (08:46)
[2018-11-07] MEDS: ENOXAPARIN 40 MG/0.4 ML SYRINGE (J1650) SC SCH (08:46)
[2018-11-07] MEDS: LACTOBACILLUS ACIDOPHILUS CAP (BACID) PO SCH ×3 (09:00→21:00)
[2018-11-07] MEDS: ACETAMINOPHEN TAB 650MG DOSE (2X325MG) PO PRN ×3 (12:33→21:20)
--- NOTE | 2018-11-07 13:07 | IPNPDOC ---
Subjective General Date/Time Seen The patient was seen on 11/07/18 at 08:38. Subject Chief Complaint/History Patient did well following laparoscopic lysis of adhesion and cecopexy yesterday. She had developed a bowel obstruction likewise partial cecal volvulus. She denies any nausea, no further abdominal cramping. She reports passing flatus. Current Medications Current Medications Current Medications Enoxaparin Sodium (Lovenox) 40 mg DAILY SC ; Start 11/06/18 at 09:00 Fentanyl Citrate (Sublimaze) 25 mcg Q5MP PRN IV MODERATE PAIN (PS 4-7); Start 11/06/18 at 20:00 Home Med (Med Rec Complete!) ASDIRECTED XX ; Start 11/06/18 at 05:45; Stop 11/06/18 at 05:45; Status DC Lactated Ringer's 1,000 ml @ 100 mls/hr Q10H IV Last administered on 11/06/18at 21:50; Start 11/06/18 at 19:45 Lactated Ringer's 1,000 ml @ 100 mls/hr Q10H IV ; Start 11/06/18 at 20:00; Stop 11/06/18 at 21:00; Status DC Meperidine HCl (Demerol) 12.5 mg Q5MP PRN IV SHIVERING; Start 11/06/18 at 20:00; Stop 11/06/18 at 21:00; Status DC Metoclopramide HCl (REGLAN INJection) 10 mg Q6HP PRN IV NAUSEA OR VOMITING; Start 11/06/18 at 20:00; Stop 11/06/18 at 21:00; Status DC Ondansetron HCl (ZOFRAN INJection) 4 mg Q4HP PRN IV NAUSEA OR VOMITING Last administered on 11/06/18at 12:40; Start 11/06/18 at 12:30 Ondansetron HCl (ZOFRAN INJection) 4 mg Q4HP PRN IV NAUSEA OR VOMITING; Start 11/06/18 at 20:00; Stop 11/06/18 at 21:00; Status DC Oxycodone/ Acetaminophen (Percocet 5mg/ 325mg Tablet) 1 tab ASDIRECTED PRN PO MILD/MODERATE PAIN (PS 1-7); Start 11/06/18 at 20:00; Stop 11/06/18 at 21:00; Status DC Pantoprazole Sodium (Protonix) 40 mg BID IV Last administered on 11/06/18at 2 1:49; Start 11/06/18 at 09:00; Stop 11/06/18 at 21:00; Status DC Pantoprazole Sodium (Protonix) 40 mg DAILY IV ; Start 11/07/18 at 09:00 Piperacillin Sod/ Tazobactam Sod 3.375 gm/Dextrose 50 ml @ 50 mls/hr Q6H IV Last administered on 11/07/18at 05:30; Start 11/06/18 at 23:00 Sodium Chloride 1,000 ml @ 100 mls/hr Q10H IV Last administered on 11/06/18at 05:46; Start 11/06/18 at 05:26; Stop 11/06/18 at 19:35; Status DC Allergies Coded Allergies: bee venom protein (honey bee) (Verified Allergy, Unknown, 11/05/18) Objective Physical Examination Examination GENERAL APPEARANCE: Sitting up on the bed, comfortable. SKIN: Warm and moist. HEENT: Normocephalic, atraumatic. [place] palpebral conjunctiva, anicteric s clerae. Lips and mucosa appear moist. NECK: Supple, no thyromegaly. No obvious jugular venous distention. LUNGS: Clear to auscultation bilaterally. No wheezing appreciated. HEART: No chest wall abnormalities. Regular rate and rhythm with no murmurs appreciated. ABDOMEN: Abdomen is minimally distended and mildly tympanitic to percussion, soft, laparoscopic port sites times tree, clean dry and intact with Dermabond on it. She has a left lower quadrant Nick drain with light pink serosanguineous fl uid. No signs of purulent drainage. Nontender on palpation. EXTREMITIES: Extremities have no deformities. No edema identified. Vital Signs Vital Signs Date Time Temp Pulse Resp B/P (MAP) Pulse Ox O2 Delivery O2 Flow Rate FiO2 11/07/18 06:00 97.6 71 18 128/73 (91) 98 2.0 11/06/18 10:30 Nasal Cannula I&Os I&O- Last 24 Hours up to 6 AM 11/07/18 06:00 Intake Total 1790 ml Output Total 1650 ml Balance 140 ml Laboratory Data Labs 24H Laboratory Tests 2 11/06/18 18:30: Body Fluid Amylase Source PERITONEAL, Body Fluid Amylase 34, Body Fluid Lipase Source PERITONEAL, Body Fluid Lipase 39 11/07/18 05:27: Immature Granulocyte % (Auto) 0.4, White Blood Count 9.7, Red Blood Count 4.23, Hemoglobin 12.7#, Hematocrit 38.8, Mean Corpuscular Volume 91.7, Mean Corpuscular Hemoglobin 30.0, Mean Corpuscular Hemoglobin Concent 32.7, Red Cell Distribution Width 12.6, Platelet Count 137L, Neutrophils (%) (Auto) 59.6, Lymphocytes (%) (Auto) 31.5, Monocytes (%) (Auto) 7.7H, Eosinophils (%) (Auto) 0.6, Basophils (%) (Auto) 0.2, Neutrophils # (Auto) 5.8, Lymphocytes # (Auto) 3.1, Monocytes # (Auto) 0.7, Eosinophils # (Auto) 0.1, Basophils # (Auto) 0.0, Nucleated Red Blood Cells % (auto) 0.0, Anion Gap 3L, Glomerular Filtration Rate > 60.0, Blood Urea Nitrogen 8, Creatinine 0.69, Sodium Level 142, Potassium L evel 3.6, Chloride Level 109H, Carbon Dioxide Level 30, Calcium Level 7.9L, Aspartate Amino Transf (AST/SGOT) 13, Alanine Aminotransferase (ALT/SGPT) 14, Alkaline Phosphatase 62, Total Bilirubin 0.8#, Total Protein 5.7#L, Albumin 2.6#L, Albumin/Globulin Ratio 0.84L, Amylase Level 43, Lipase 75 CBC/BMP Laboratory Tests 11/07/18 05:27 Red Blood Count 4.23, Mean Corpuscular Volume 91.7, Mean Corpuscular Hemoglobin 30.0, Mean Corpuscular Hemoglobin Concent 32.7, Red Cell Distribution Width 12.6, Neutrophils (%) (Auto) 59.6, Lymphocytes (%) (Auto) 31.5, Monocytes (%) (Auto) 7.7 H, Eosinophils (%) (Auto) 0.6, Basophils (%) (Auto) 0.2, Neutrophils # (Auto) 5.8, Lymphocytes # (Auto) 3.1, Monocytes # (Auto) 0.7, Eosinophils # (Auto) 0.1, Basophils # (Auto) 0.0, Calcium Level 7.9 L, Aspartate Amino Transf (AST/SGOT) 13, Alanine Aminotransferase (ALT/SGPT) 14, Alkaline Phosphatase 62, Total Bilirubin 0.8 #, Total Protein 5.7 #L, Albumin 2.6 #L Microbiology Microbiology 11/06/18 Gram Stain, Received Pending 11/06/18 Body Fluid Culture, Received Pending Impression Postop day 1 following laparoscopic lysis of adhesion, cecopexy I reviewed my intraoperative findings with the patient. She has one of her daughters at the bedside at the time I saw her. She had intra-abdominal adhesions pulling her colon towards the left side of this also pulled the distal ileum underneath the colon with some retroperitoneal adhesions causing a blockage over that area. Over all the bowels appear healthy. She has some unexplained whitish thick fluid collection that I presume this an infected collection that I sent for microbiology as well as amylase and lipase area did not find any suitable explanation for why the purulent collection is present. I left a drain at the area and currently she is not having any purulent drainage. She is not showing any signs of sepsis. I'll give her a dose of MiraLAX as she seems to be constipated now that the obstruction was opened up. Discontinue Paulino catheter Trial of clear liquids. Patient instructed to ambulate to hallways. Plan / VTE VTE Prophylaxis Ordered?: Yes JOSE HOOVER MD Nov 07, 2018 08:38
--- NOTE | 2018-11-07 15:12 | IPN ---
DATE: 11/07/2018 Allyssa went to the operating room (OR) last night for cecal volvulus, lysis of adhesions. Appreciate Dr. Menchaca's intervention. Today, she feels much better. Pain is much improved. She is concerned about her history of Clostridium (C) difficile colitis and currently being on Zosyn. PHYSICAL EXAM: Afebrile. Vital signs stable. Lungs: Clear. Heart: Regular rate and rhythm. Abdomen: Soft. Less distended. Slightly tender. Dressings present. LABS: White count is down 9.7. Electrolytes look unremarkable. IMPRESSION: Post-op day #1 status post diagnostic laparoscopic lysis of adhesions relieving small bowel and right colon obstruction. PLAN: Continue intravenous (IV) antibiotics per Dr. Lassiter. Discontinue those when okay with surgery. Probiotics ordered.
[2018-11-08 02:00] VITALS: BP 135/71
[2018-11-08] MEDS: ACETAMINOPHEN TAB 650MG DOSE (2X325MG) PO PRN ×2 (02:15→08:21)
[2018-11-08] MEDS: PIPERACILLIN/TAZOBACTAM SOD 3.375 GM in D5W MINI-BAG PLUS 50 ML IV SCH (05:27)
[2018-11-08 06:00] VITALS: BP 131/76
[2018-11-08 06:54] LABS: HEMOGLOBIN 12.5 g/dl (12.0-15.5); MEAN CORPUSCULAR HEMOGLOBIN 29.1 pg (27.0-33.0); MEAN CORPUSCULAR HGB CONC 32.9 g/dl (32.0-36.5); MEAN CORPUSCULAR VOLUME 88.6 fl (80.0-96.0); PLATELET COUNT, AUTOMATED 133 10^3/uL (150-450); RED BLOOD COUNT 4.29 10^6/uL (4.00-5.40); WHITE BLOOD COUNT 6.6 10^3/uL (4.0-10.0)
[2018-11-08 07:13] LABS: BLOOD UREA NITROGEN 7 MG/DL (7-18); CALCIUM LEVEL 8.1 MG/DL (8.8-10.2); CARBON DIOXIDE LEVEL 29 MEQ/L (21-32); CHLORIDE LEVEL 110 MEQ/L (98-107); CREATININE FOR GFR 0.64 MG/DL (0.55-1.30); GLOMERULAR FILTRATION RATE > 60.0 (>45); GLUCOSE, FASTING 92 MG/DL (70-100); POTASSIUM SERUM 3.5 MEQ/L (3.5-5.1); SODIUM LEVEL 143 MEQ/L (136-145)
[2018-11-08] MEDS: LACTOBACILLUS ACIDOPHILUS CAP (BACID) PO SCH ×3 (08:20→21:00)
[2018-11-08] MEDS: ENOXAPARIN 40 MG/0.4 ML SYRINGE (J1650) SC SCH (08:20)
[2018-11-08] MEDS: PANTOPRAZOLE 40MG INJ (PROTONIX) (C9113) IV SCH (08:20)
[2018-11-08 10:00] VITALS: BP 133/83
[2018-11-08] MEDS ORDERED: BISACODYL 10 MG SUPP PR ONE (10:30)
[2018-11-08] MEDS: MOM 30ML SUSPENSION UDC PO SCH ×2 (10:32→21:00)
--- NOTE | 2018-11-08 10:51 | IPNPDOC ---
Subjective General Date/Time Seen The patient was seen on 11/08/18 at 10:48. Subject Chief Complaint/History Patient reports she is comfortable though she had some crampy lower abdominal pain last night. She denies any associated nausea. She is passing flatus. She is ambulating the hallways. She is tolerating clear liquids. Current Medications Current Medications Current Medications Acetaminophen (Tylenol Tab) 650 mg Q4HP PRN PO PAIN OR FEVER Last administered on 11/08/18at 08:21; Start 11/07/18 at 12:00 Enoxaparin Sodium (Lovenox) 40 mg DAILY SC Last administered on 11/08/18at 08:20; Start 11/06/18 at 09:00 Fentanyl Citrate (Sublimaze) 25 mcg Q5MP PRN IV MODERATE PAIN (PS 4-7); Start 11/06/18 at 20:00; Stop 11/07/18 at 08:43; Status DC Home Med (Med Rec Complete!) ASDIRECTED XX ; Start 11/06/18 at 05:45; Stop 11/06/18 at 05:45; Status DC Lactated Ringer's 1,000 ml @ 100 mls/hr Q10H IV Last administered on 11/06/18at 21:50; Start 11/06/18 at 19:45; Stop 11/07/18 at 16:14; Status DC Lactated Ringer's 1,000 ml @ 100 mls/hr Q10H IV ; Start 11/06/18 at 20:00; Stop 11/06/18 at 21:00; Status DC Lactobacillus Acidophilus (Bacid) 2 ea TID PO ; Start 11/07/18 at 09:00 Magnesium Hydroxide (Milk Of Magnesia) 30 ml BID PO Last administered on at 10:32; Start 11/08/18 at 09:00 Meperidine HCl (Demerol) 12.5 mg Q5MP PRN IV SHIVERING; Start 11/06/18 at 20:00; Stop 11/06/18 at 21:00; Status DC Metoclopramide HCl (REGLAN INJection) 10 mg Q6HP PRN IV NAUSEA OR VOMITING; Start 11/06/18 at 20:00; Stop 11/06/18 at 21:00; Status DC Ondansetron HCl (ZOFRAN INJection) 4 mg Q4HP PRN IV NAUSEA OR VOMITING Last administered on 11/06/18at 12:40; Start 11/06/18 at 12:30 Ondansetron HCl (ZOFRAN INJection) 4 mg Q4HP PRN IV NAUSEA OR VOMITING; Start 11/06/18 at 20:00; Stop 11/06/18 at 21:00; Status DC Oxycodone/ Acetaminophen (Percocet 5mg/ 325mg Tablet) 1 tab ASDIRECTED PRN PO MILD/MODERATE PAIN (PS 1-7); Start 11/06/18 at 20:00; Stop 11/06/18 at 21:00; Status DC Pantoprazole Sodium (Protonix) 40 mg BID IV Last administered on 11/06/18at 21:49; Start 11/06/18 at 09:00; Stop 11/06/18 at 21:00; Status DC Pantoprazole Sodium (Protonix) 40 mg DAILY IV Last administered on 11/08/18at 08:20; Start 11/07/18 at 09:00 Piperacillin Sod/ Tazobactam Sod 3.375 gm/Dextrose 50 ml @ 50 mls/hr Q6H IV Last administered on 11/08/18at 05:27; Start 11/06/18 at 23:00; Stop 11/08/18 at 09:20; Status DC Sodium Chloride 1,000 ml @ 100 mls/hr Q10H IV Last administered on 11/06/18at 05:46; Start 11/06/18 at 05:26; Stop 11/06/18 at 19:35; Status DC Allergies Coded Allergies: bee venom protein (honey bee) (Verified Allergy, Unknown, 11/05/18) Objective Physical Examination Examination GENERAL APPEARANCE: Looks very comfortable. SKIN: Warm and moist. HEENT: Normocephalic, atraumatic. [place] palpebral conjunctiva, anicteric sclerae. Lips and mucosa appear moist. NECK: Supple, no thyromegaly. No obvious jugular venous distention. LUNGS: Clear to auscultation bilaterally. No wheezing appreciated. HEART: No chest wall abnormalities. Regular rate and rhythm with no murmurs appreciated. ABDOMEN: Abdomen is minimally distended, soft, relatively flat. Port site i ncisions with Dermabond, clean dry and intact. Nick drain with mostly serous output no. EXTREMITIES: Extremities have no deformities. No edema identified. Vital Signs Vital Signs Date Time Temp Pulse Resp B/P (MAP) Pulse Ox O2 Delivery O2 Flow Rate FiO2 11/08/18 10:00 97.1 68 16 133/83 (100) 98 11/07/18 12:00 2.0 11/06/18 10:30 Nasal Cannula I&Os I&O- Last 24 Hours up to 6 AM 11/08/18 06:00 Intake Total 1640 ml Output Total 1355 ml Balance 285 ml Laboratory Data Labs 24H Laboratory Tests 2 11/08/18 06:07: Nucleated Red Blood Cells % (auto) 0.0, Anion Gap 4L, Glomerular Filtration Rate > 60.0, Blood Urea Nitrogen 7, Creatinine 0.64, Sodium Level 143, Potassium Level 3.5, Chloride Level 110H, Carbon Dioxide Level 29, Calcium Level 8.1L CBC/BMP Laboratory Tests 11/08/18 06:07 Red Blood Count 4.29, Mean Corpuscular Volume 88.6, Mean Corpuscular Hemoglobin 29.1, Mean Corpuscular Hemoglobin Concent 32.9, Red Cell Distribution Width 12.4, Calcium Level 8.1 L Microbiology Microbiology 11/06/18 Gram Stain - Final, Complete 11/06/18 Body Fluid Culture - Final, Complete Impression Postop day 2 after laparoscopic lysis of adhesion and release of small bowel and colon obstruction, cecopexy partial cecal volvulus Continues to do well though she reports she sometimes still is having some crampy discomfort. She is passing flatus, no bowel movements yet. She denies any nausea. She is trying on clears. I'll advance her to soft diet. I'll put her on a scheduled bowel regimen. I continue to encourage her to ambulate. I think when there is clear prove that she is having regular bowel function that we would be able to send her home, she is able to tolerate diet. She has this unexplained weight milky fluid collection in the pelvis that I sent for amylase, lipase which was normal also sent for Gram stain and culture. This shows small amount of WBCs and no organisms growing in them. I Turned antibiotic. Given negative cultures I'll stop the antibiotics, continue monitoring with the drain. She does have a prior history of C. difficile colitis of the keep her on prolonged antibiotics if she doesn't need to. Plan / VTE VTE Prophylaxis Ordered?: Yes JOES HOOVER MD Nov 08, 2018 10:51
[2018-11-08] MEDS: IBUPROFEN 600 MG TAB PO PRN ×2 (13:58→20:20)
[2018-11-08 14:00] VITALS: BP 121/78
--- NOTE | 2018-11-08 14:49 | IPN ---
DATE: 11/08/2018 Allyssa is doing well. She thinks she might try to pass some flatus. No nausea. Abdominal pain is resolving. She is walking in the hallways. VITAL SIGNS: Stable. Afebrile. LUNGS: Clear. HEART: Regular rate and rhythm. ABDOMEN: Soft, nontender, nondistended. LABORATORIES: Complete blood count (CBC) unremarkable. Chemistry profile unremarkable. No growth on fluid from surgery. IMPRESSION: Postoperative day #2 status post laparoscopic lysis of adhesions for cecal vault volvulus. PLAN: Probable discharge tomorrow if taking diet well and passing flatus. Antibiotics were discontinued today by surgery.
[2018-11-08 18:00] VITALS: BP 120/77
[2018-11-08 22:00] VITALS: BP 125/74
[2018-11-09] MEDS: ACETAMINOPHEN TAB 650MG DOSE (2X325MG) PO PRN ×3 (01:32→21:16)
[2018-11-09 02:00] VITALS: BP 137/77
[2018-11-09 06:00] VITALS: BP 141/82
[2018-11-09 06:11] LABS: MEAN CORPUSCULAR HEMOGLOBIN 28.9 pg (27.0-33.0); MEAN CORPUSCULAR HGB CONC 32.5 g/dl (32.0-36.5); MEAN CORPUSCULAR VOLUME 88.9 fl (80.0-96.0); PLATELET COUNT, AUTOMATED 148 10^3/uL (150-450); WHITE BLOOD COUNT 7.2 10^3/uL (4.0-10.0)
[2018-11-09 06:38] LABS: BLOOD UREA NITROGEN 9 MG/DL (7-18); CALCIUM LEVEL 8.1 MG/DL (8.8-10.2); CARBON DIOXIDE LEVEL 28 MEQ/L (21-32); CHLORIDE LEVEL 110 MEQ/L (98-107); CREATININE FOR GFR 0.68 MG/DL (0.55-1.30); GLOMERULAR FILTRATION RATE > 60.0 (>45); GLUCOSE, FASTING 107 MG/DL (70-100); POTASSIUM SERUM 3.8 MEQ/L (3.5-5.1); SODIUM LEVEL 142 MEQ/L (136-145)
[2018-11-09] MEDS: MOM 30ML SUSPENSION UDC PO SCH (07:30)
[2018-11-09] MEDS: ENOXAPARIN 40 MG/0.4 ML SYRINGE (J1650) SC SCH (07:30)
[2018-11-09] MEDS: LACTOBACILLUS ACIDOPHILUS CAP (BACID) PO SCH ×3 (07:30→21:00)
[2018-11-09] MEDS: PANTOPRAZOLE 40MG INJ (PROTONIX) (C9113) IV SCH (07:30)
[2018-11-09 10:00] VITALS: BP 113/68
[2018-11-09] MEDS: IBUPROFEN 600 MG TAB PO PRN (10:59)
--- NOTE | 2018-11-09 11:59 | IPN ---
DATE: 11/09/2018 Allyssa does not feel ready to go home. She has not really been passing much stool and has some lower abdominal pain. PHYSICAL EXAMINATION: Vital signs stable. Lungs clear. Heart regular rate and rhythm. Abdomen is soft, slightly distended, slightly tender. LABS: CBC and BMP are unremarkable. PLAN: Will keep her another day and plan discharge tomorrow if okay with surgery.
[2018-11-09 14:00] VITALS: BP 130/74
[2018-11-09 18:00] VITALS: BP 126/65
[2018-11-09] MEDS ORDERED: SENOKOT S TAB PO SCH (21:00)
[2018-11-09 22:00] VITALS: BP 134/84
[2018-11-10 02:00] VITALS: BP 151/79
[2018-11-10 06:00] VITALS: BP 146/84
[2018-11-10 06:52] LABS: HEMATOCRIT 39.7 % (36.0-47.0); MEAN CORPUSCULAR HGB CONC 32.7 g/dl (32.0-36.5); MEAN CORPUSCULAR VOLUME 88.6 fl (80.0-96.0); PLATELET COUNT, AUTOMATED 156 10^3/uL (150-450); RED BLOOD COUNT 4.48 10^6/uL (4.00-5.40); WHITE BLOOD COUNT 6.3 10^3/uL (4.0-10.0)
[2018-11-10 07:19] LABS: BLOOD UREA NITROGEN 9 MG/DL (7-18); CALCIUM LEVEL 8.2 MG/DL (8.8-10.2); CARBON DIOXIDE LEVEL 28 MEQ/L (21-32); CHLORIDE LEVEL 111 MEQ/L (98-107); CREATININE FOR GFR 0.66 MG/DL (0.55-1.30); GLOMERULAR FILTRATION RATE > 60.0 (>45); GLUCOSE, FASTING 91 MG/DL (70-100); POTASSIUM SERUM 3.7 MEQ/L (3.5-5.1); SODIUM LEVEL 144 MEQ/L (136-145)
[2018-11-10] MEDS: PANTOPRAZOLE 40MG INJ (PROTONIX) (C9113) IV SCH (07:49)
[2018-11-10] MEDS: ENOXAPARIN 40 MG/0.4 ML SYRINGE (J1650) SC SCH (07:50)
[2018-11-10] MEDS: LACTOBACILLUS ACIDOPHILUS CAP (BACID) PO SCH (07:50)
[2018-11-10 10:00] VITALS: BP 157/79
[2018-11-10] MEDS: IBUPROFEN 600 MG TAB PO PRN (11:31)
--- NOTE | 2018-11-11 00:07 | DSES ---
DATE OF ADMISSION: 11/06/2018 DATE OF DISCHARGE: 11/10/2018 Allyssa feels well. She walked in the halls. She ate lunch without any difficulties. She had positive abdominal pain for incisions, but feels able to go home. PHYSICAL EXAMINATION: Vital signs stable. Afebrile. Lungs clear. Her abdomen is soft, nontender and nondistended. LABORATORY: Sodium 144, potassium 3.7, BUN 9, creatinine 0.9, glucose 91, white count 6.3, hemoglobin 13, platelets 256. IMPRESSION: 1. Cecal volvulus, status post lysis of adhesions. Reduction of the volvulus by Dr. Lassiter. She has recovered well and seems stable for discharge. 2. Gastritis that is probably reactive from the volvulus. [place] like it did not need any further treatment. DISPOSITION: She is discharged home in improved and stable condition. She will followup with her primary care provider in a week. Activity as tolerated. Regular diet. No pending labs.
[2019-03-05] MEDS ORDERED: [UNRECOGNIZED DRUG - OTHER] PO (15:42)
== END 2018-11-10 14:48 | disposition home or self-care (01) | DRG 223 ==
LOC: M ED 21:42 → M ED INP 11-06 10:32 → M MSPAV 11-06 14:50
PROVIDERS: ADMIT Hospitalist; ATTEND Family Medicine
PROC: 0DSH4ZZ Reposition Cecum, Percutaneous Endoscopic Approach (ICD-10-PCS; 2018-11-06)
PROC: 0DNF4ZZ Release Right Large Intestine, Percutaneous Endoscopic Approach (ICD-10-PCS; principal; 2018-11-06 16:04)
DX: K56.2 Volvulus (principal); K21.9 Gastro-esophageal reflux disease without esophagitis; K29.70 Gastritis, unspecified, without bleeding; Z79.899 Other long term (current) drug therapy; Z91.030 Bee allergy status

== ENCOUNTER → 2019-01-15 | Outpatient (CLI) | payer BC ==
[~2019-01-15] MED LIST changes: +ACET160T4 PO; +BACITAB PO; +CALC500T38 PO; +D3 H2000 PO; +GLUCTAB6 PO; +HYDR1CRE TOP; +TURM1CAP5 PO; +VITA400C56 PO; +VITMTA PO; +[UNRECOGNIZED DRUG - OTHER] PO
--- NOTE | 2019-01-16 02:53 | REP ---
Clinical: Pelvic and perineal pain . Technique: Transabdominal pelvic ultrasound followed by transvaginal examination for better evaluation of the endometrium and adnexa with color Doppler evaluation of the ovaries. Findings: Bladder is unremarkable and measures 10.2 x 7.4 x 9.2 cm . Normal anteverted uterus measures 7.7 x 3.4 x 4.7 cm . The endometrial complex measures 13.7 thickness. No discrete uterine or endometrial abnormalities are appreciated. Bilateral ovaries are normal in appearance and vascularity without evidence for torsion. Right ovary measures 3.3 x 2.2 x 3.1 cm with 2.8 cm simple cyst ; R I = 0.67 . Left ovary measures 1.3 x 1.0 x 1.1 cm ; R I = 0.66 . No pelvic fluid or adnexal mass lesion . Impression: 1. Thickened endometrial complex without obvious abnormality may represent generalized hyperplasia. Correlation and follow up may be warranted. 2. 2.8 cm simple cyst in the right ovary. Electronically Signed by Chun Méndez MD 01/16/2019 02:45 A
== END ==
LOC: M RAD 11:05
PROVIDERS: ATTEND Obstetrics & Gynecology
DX: R10.2 Pelvic and perineal pain (principal); N83.201 Unspecified ovarian cyst, right side; R93.89 Abnormal findings on diagnostic imaging of other specified body structures

== ENCOUNTER → 2019-01-16 | Outpatient (REF) | payer BC | LOC: M SFHCPLAZ 10:25 | PROVIDERS: ATTEND Family Medicine | DX: R73.01 Impaired fasting glucose (principal); E55.9 Vitamin D deficiency, unspecified; R21 Rash and other nonspecific skin eruption; Z53.9 Procedure and treatment not carried out, unspecified reason ==

== ENCOUNTER → 2019-01-17 | Outpatient (REF) | payer BC ==
[2019-01-17 10:43] LABS: BASO % 0.5 % (0.0-1.0); EOS # 0.1 10^3/uL (0.0-0.5); HEMATOCRIT 42.8 % (36.0-47.0); HEMOGLOBIN 14.1 g/dl (12.0-15.5); LYMPH # 3.8 10^3/uL (1.5-5.0); LYMPH % 56.4 % (24.0-44.0); MEAN CORPUSCULAR HEMOGLOBIN 29.3 pg (27.0-33.0); MEAN CORPUSCULAR HGB CONC 32.9 g/dl (32.0-36.5); MEAN CORPUSCULAR VOLUME 88.8 fl (80.0-96.0); MONO # 0.4 10^3/uL (0.0-0.8); MONO % 5.7 % (0.0-5.0); NEUTROPHILS # 2.4 10^3/uL (1.5-8.5); NEUTROPHILS % 35.2 % (36.0-66.0); PLATELET COUNT, AUTOMATED 183 10^3/uL (150-450); RED BLOOD COUNT 4.82 10^6/uL (4.00-5.40); WHITE BLOOD COUNT 6.7 10^3/uL (4.0-10.0)
[2019-01-17 11:02] LABS: ALBUMIN 3.6 GM/DL (3.2-5.2); ALT/SGPT 17 U/L (12-78); BILIRUBIN,TOTAL 0.7 MG/DL (0.2-1.0); BLOOD UREA NITROGEN 14 MG/DL (7-18); CALCIUM LEVEL 9.2 MG/DL (8.8-10.2); CARBON DIOXIDE LEVEL 31 MEQ/L (21-32); CHLORIDE LEVEL 106 MEQ/L (98-107); CHOLESTEROL LEVEL 179 MG/DL (<200); CHOLESTEROL RISK RATIO 3.196 (<5); GLOMERULAR FILTRATION RATE > 60.0 (>45); GLUCOSE, FASTING 91 MG/DL (70-100); HDL CHOLESTEROL 56 MG/DL (>40); LDL CHOLESTEROL 111 MG/DL (<100); NON-HDL-C 123 MG/DL; POTASSIUM SERUM 4.7 MEQ/L (3.5-5.1); SODIUM LEVEL 142 MEQ/L (136-145); TOTAL PROTEIN 6.8 GM/DL (6.4-8.2); TRIGLYCERIDES LEVEL 59 MG/DL (<150)
[2019-01-17 11:19] LABS: TOTAL 25(OH) VITAMIN D 39.3 NG/ML (30.0-100.0)
[2019-01-17 11:20] LABS: THYROGLOBULIN ANTIBODY 24.4 U/ML (<60.0); THYROID PEROXIDASE ANTIBODY 1132.2 U/ML (<60.0)
[2019-01-17 11:21] LABS: PTH INTACT 34.7 PG/ML (18.5-88.0)
[2019-01-17 11:34] LABS: HEMOGLOBIN A1c 5.6 %
== END ==
LOC: M SFHCPLAZ 08:33
PROVIDERS: ATTEND Family Medicine
DX: R73.01 Impaired fasting glucose (principal); E55.9 Vitamin D deficiency, unspecified; R21 Rash and other nonspecific skin eruption

== ENCOUNTER → 2019-02-24 | Outpatient (REF) | payer BC ==
[2019-02-24 15:40] LABS: BASO % 0.4 % (0.0-1.0); EOS # 0.1 10^3/uL (0.0-0.5); EOS % 0.7 % (0.0-3.0); HEMATOCRIT 46.3 % (36.0-47.0); HEMOGLOBIN 14.8 g/dl (12.0-15.5); LYMPH % 56.4 % (24.0-44.0); MEAN CORPUSCULAR HEMOGLOBIN 29.3 pg (27.0-33.0); MEAN CORPUSCULAR VOLUME 91.7 fl (80.0-96.0); MONO # 0.4 10^3/uL (0.0-0.8); NEUTROPHILS # 2.5 10^3/uL (1.5-8.5); NEUTROPHILS % 36.2 % (36.0-66.0); PLATELET COUNT, AUTOMATED 178 10^3/uL (150-450); RED BLOOD COUNT 5.05 10^6/uL (4.00-5.40)
[2019-02-24 15:54] LABS: ALBUMIN 3.9 GM/DL (3.2-5.2); ALT/SGPT 21 U/L (12-78); BILIRUBIN,TOTAL 0.4 MG/DL (0.2-1.0); BLOOD UREA NITROGEN 13 MG/DL (7-18); CALCIUM LEVEL 9.4 MG/DL (8.8-10.2); CARBON DIOXIDE LEVEL 31 MEQ/L (21-32); CHLORIDE LEVEL 104 MEQ/L (98-107); FREE T4 0.94 NG/DL (0.76-1.46); GLOMERULAR FILTRATION RATE > 60.0 (>45); GLUCOSE, FASTING 91 MG/DL (70-100); POTASSIUM SERUM 3.9 MEQ/L (3.5-5.1); SODIUM LEVEL 141 MEQ/L (136-145); TOTAL PROTEIN 7.1 GM/DL (6.4-8.2)
[2019-02-24 15:57] LABS: THYROID PEROXIDASE ANTIBODY 1113.5 U/ML (<60.0); TOTAL 25(OH) VITAMIN D 47.9 NG/ML (30.0-100.0)
== END ==
LOC: M SFHCPLAZ 13:49
PROVIDERS: ATTEND Family Medicine
DX: E06.3 Autoimmune thyroiditis (principal); I10 Essential (primary) hypertension

== ENCOUNTER 2019-03-12 11:29 | Day surgery (SDC) | payer BC ==
[~2019-03-12] VITALS: Ht 162.6 cm; Wt 62.6 kg
[~2019-03-12 11:29] MED LIST changes: +KETOROLAC 60 MG/2 ML VIAL (J1885) As Ordered ONE; +LIDOCAINE 1% MDV 20ML VIAL SQ PRN; +LIDOCAINE 2% INJ 100 MG/5 ML SDV (FOR ANES.) As Ordered ONE; +LR 1,000 ML IV ONE; +MIDAZOLAM INJ 2 MG/2 ML VIAL (J2250) As Ordered ONE; +ONDANSETRON 4MG/2ML VIAL (J2405) As Ordered ONE; +PROPOFOL 200 MG/20 ML VIAL As Ordered ONE; +[UNRECOGNIZED DRUG - OTHER] PO; +dexameTHASONE 4 MG/ML 1ML VIAL (J1100) As Ordered ONE; +fentaNYL 100 MCG/2 ML INJECTION (J3010) As Ordered ONE
[2019-03-12 12:10] LABS: HEMATOCRIT 48.2 % (36.0-47.0); HEMOGLOBIN 15.7 g/dl (12.0-15.5); MEAN CORPUSCULAR HEMOGLOBIN 29.5 pg (27.0-33.0); MEAN CORPUSCULAR HGB CONC 32.6 g/dl (32.0-36.5); MEAN CORPUSCULAR VOLUME 90.6 fl (80.0-96.0); PLATELET COUNT, AUTOMATED 179 10^3/uL (150-450); RED BLOOD COUNT 5.32 10^6/uL (4.00-5.40); WHITE BLOOD COUNT 7.2 10^3/uL (4.0-10.0)
[2019-03-12] MEDS ORDERED: [UNRECOGNIZED DRUG - OTHER] (12:12)
[2019-03-12] MEDS ORDERED: ROCURONIUM BROMIDE 50 MG/5 ML VIAL As Ordered ONE (12:28)
[2019-03-12] MEDS ORDERED: SUGAMMADEX SODIUM 500 MG/5 ML VIAL (BRIDION) As Ordered ONE (13:13)
[2019-03-12] MEDS ORDERED: LR 1,000 ML IV SCH (14:00)
[2019-03-12] MEDS ORDERED: METOCLOPRAMIDE INJ 10MG/2ML VIAL (J2765) IV PRN (14:00)
[2019-03-12] MEDS ORDERED: ONDANSETRON 4MG/2ML VIAL (J2405) IV PRN (14:00)
[2019-03-12] MEDS ORDERED: PERCOCET 5MG/325MG TAB PO PRN ×2 (14:00)
--- NOTE | 2019-03-12 14:47 | RO ---
DATE OF OPERATION: 03/12/2019 PREOPERATIVE DIAGNOSIS: Thickened endometrium. POSTOPERATIVE DIAGNOSIS: Endometrial polyp. PROCEDURES PERFORMED: Hysteroscopy, MyoSure with dilation and curettage. SURGEON: Dianna Michael MD NURSE RESEARCHER: None. ANESTHESIA: General. SPECIMENS: 1. Endometrial polyp. 2. Endometrial curetting. ESTIMATED BLOOD LOSS: 5 mL. URINE OUTPUT: Was not obtained. INTRAVENOUS FLUIDS: 400 mL of lactated Ringer solution. OPERATIVE FINDINGS: The patient with approximately 2.5 cm anterior endometrial polyp. Atrophic-appearing endometrium. Bilateral ostia were visualized. DESCRIPTION OF OPERATION: After informed consent was obtained and written consent was reviewed, the patient was brought to the operating room where she was placed under general anesthesia. She was then placed in lithotomy position and was prepped and draped in a normal sterile fashion. A time-out in the operating room was then performed identifying the patient, procedure to be performed, as well as drug allergies. A bivalve speculum was then placed revealing the cervix. A single-tooth tenaculum was then used to grasp the anterior lip of the cervix. The cervix was then sounded to 9 cm. It was then sequentially dilated using dilators. The hysteroscope was then advanced through the cervical os. Endometrial cavity was then surveyed. It showed approximately a 2.5 cm anterior endometrial polyp. The MyoSure was then advanced, and the endometrial polyp was morcellated. The MyoSure was then removed. A sharp curette was then advanced into the cervical os. Then, the uterus was curetted in a 36-degree fashion with minimal amounts of tissue obtained. The tissue was then collected and sent to pathology. A single-tooth tenaculum was then removed. Tenaculum sites were noted to be hemostatic. The speculum was then removed. The patient was then taken out of lithotomy position, was awakened from general anesthesia, and taken to recovery in stable condition. Counts were correct.
[2019-03-12 15:15] VITALS: BP 129/76
[2019-03-12] MEDS ORDERED: KETOROLAC 30 MG/ML VIAL (J1885) IV SCH (19:00)
== END 2019-03-12 15:22 | disposition home or self-care (01) ==
LOC: M SDC 11:29
PROVIDERS: ATTEND Obstetrics & Gynecology
DX: N84.0 Polyp of corpus uteri (principal); I10 Essential (primary) hypertension; R73.01 Impaired fasting glucose; E06.3 Autoimmune thyroiditis; E78.00 Pure hypercholesterolemia, unspecified; K21.0 Gastro-esophageal reflux disease with esophagitis; E55.9 Vitamin D deficiency, unspecified; D44.7 Neoplasm of uncertain behavior of aortic body and other paraganglia; Z86.19 Personal history of other infectious and parasitic diseases
CPT/HCPCS: 36415; 58558; 85027; 86850; 86900; 86901; 88305; J1100; J1885; J2250; J2405; J3010

== ENCOUNTER 2019-05-03 13:02 | Emergency (ER) | payer MEDICARE ==
[~2019-05-03] VITALS: Ht 162.6 cm; Wt 65.3 kg
[~2019-05-03 13:02] MED LIST changes: -KETOROLAC 60 MG/2 ML VIAL (J1885) As Ordered ONE; -LIDOCAINE 1% MDV 20ML VIAL SQ PRN; -LIDOCAINE 2% INJ 100 MG/5 ML SDV (FOR ANES.) As Ordered ONE; -LR 1,000 ML IV ONE; -MIDAZOLAM INJ 2 MG/2 ML VIAL (J2250) As Ordered ONE; -ONDANSETRON 4MG/2ML VIAL (J2405) As Ordered ONE; -PROPOFOL 200 MG/20 ML VIAL As Ordered ONE; +[UNRECOGNIZED DRUG - OTHER]; -dexameTHASONE 4 MG/ML 1ML VIAL (J1100) As Ordered ONE; -fentaNYL 100 MCG/2 ML INJECTION (J3010) As Ordered ONE
[2019-05-03] MEDS ORDERED: EPIN0.3I11 (13:59)
[2019-05-03] MEDS ORDERED: FLUORESCEIN OPHTH 1 MG STRIP OS ONE (14:30)
[2019-05-03] MEDS ORDERED: TETRACAINE 0.5% OPHTH SOLN 4ML OS ONE (14:30)
[2019-05-03] MEDS ORDERED: VALA1TAB64 PO (16:35)
[2019-05-03 16:40] VITALS: BP 142/78
== END 2019-05-03 16:46 | disposition home or self-care (01) ==
LOC: M ED 13:02
DX: B02.9 Zoster without complications (principal)

== ENCOUNTER → 2019-05-16 | Outpatient (REF) | payer MEDICARE ==
[~2019-05-16] MED LIST changes: +EPIN0.3I11; +VALA1TAB64 PO
== END ==
LOC: M SFHCPLAZ 11:10
PROVIDERS: ATTEND Nurse Practitioner Family
DX: Z53.8 Procedure and treatment not carried out for other reasons (principal)

== ENCOUNTER → 2019-07-03 | Outpatient (CLI) | payer MEDICARE ==
[~2019-07-03] MED LIST changes: +E-Z-GAS II EFFERVESCENT PACKET (SODIUM BICARB./CITRIC ACID/SIMETHICONE) As Ordered ONE; +E-Z-HD 98% w/w 340GM SUSP BTL As Ordered ONE; +E-Z-PAQUE 96% w/w SUSP 176GM BTL As Ordered ONE; +VALA1TAB5 PO; -VALA1TAB64 PO
--- NOTE | 2019-07-03 16:54 | REP ---
Examination Requested: Upper G.I. Series With KUB Reason For Exam: Gastroesophageal reflux disease Upper GI Air Contrast The procedure was performed by BALJEET Ortiz, under the direct supervision of Dr. Ham. The images were reviewed with Dr. Ham. The plate embosser film shows no organomegaly or pathological masses. The intestinal gas pattern appears normal. Liquid barium and gas producing crystals were given in the erect position as well as liquid barium in the prone oblique position in order to perform a double contrast upper GI examination. The oral and pharyngeal stages of deglutition were unremarkable. Esophageal transport is efficient and there is no esophagitis, stricture, or mucosal ring noted. There is no hiatal hernia. Gastroesophageal reflux was visualized during the course of the exam to the level of the edgar. The stomach gaming are normally outlined. The rugal folds are smooth and regular. There is no gastritis, neoplasm, ulcer disease noted. The duodenal gaming are normally outlined. The mucosal folds are smooth and regular. There is no duodenitis, peptic ulcer disease, or neoplasm noted. The visualized portion of the proximal small bowel appears normal in course and caliber. Impression: 1. Gastroesophageal reflux to the level of the edgar. 0.3 minutes of fluoroscopy time was utilized for this procedure. Some fluoroscopic images are performed with last image hold technology. These images require no additional radiation. Reviewed by BALJEET Corral 07/03/2019 03:43 P Electronically Signed by Braydon Ham MD 07/03/2019 04:46 P
== END ==
LOC: M RAD 07:49
PROVIDERS: ATTEND Family Medicine
DX: K21.9 Gastro-esophageal reflux disease without esophagitis (principal)

== ENCOUNTER → 2019-10-01 | Outpatient (CLI) | payer MEDICARE ==
[~2019-10-01] MED LIST changes: -E-Z-GAS II EFFERVESCENT PACKET (SODIUM BICARB./CITRIC ACID/SIMETHICONE) As Ordered ONE; -E-Z-HD 98% w/w 340GM SUSP BTL As Ordered ONE; -E-Z-PAQUE 96% w/w SUSP 176GM BTL As Ordered ONE
[2019-10-01 10:07] LABS: ALBUMIN 3.6 GM/DL (3.2-5.2); ALT/SGPT 20 U/L (12-78); BILIRUBIN,TOTAL 0.3 MG/DL (0.2-1.0); BLOOD UREA NITROGEN 13 MG/DL (7-18); CALCIUM LEVEL 8.7 MG/DL (8.8-10.2); CARBON DIOXIDE LEVEL 28 MEQ/L (21-32); CHLORIDE LEVEL 109 MEQ/L (98-107); CHOLESTEROL LEVEL 183 MG/DL (<200); CREATININE FOR GFR 0.73 MG/DL (0.55-1.30); FREE T4 0.94 NG/DL (0.76-1.46); GLOMERULAR FILTRATION RATE > 60.0 (>45); GLUCOSE, FASTING 102 MG/DL (70-100); HDL CHOLESTEROL 61 MG/DL (>40); LDL CHOLESTEROL 106 MG/DL (<100); NON-HDL-C 122 MG/DL; POTASSIUM SERUM 4.7 MEQ/L (3.5-5.1); SODIUM LEVEL 142 MEQ/L (136-145); TRIGLYCERIDES LEVEL 78 MG/DL (<150)
[2019-10-01 10:09] LABS: PTH INTACT 46.4 PG/ML (18.5-88.0); TOTAL 25(OH) VITAMIN D 35.6 NG/ML (30.0-100.0)
== END ==
LOC: M WUC 08:18
PROVIDERS: ATTEND Family Medicine
DX: E06.3 Autoimmune thyroiditis (principal); R73.01 Impaired fasting glucose; E55.9 Vitamin D deficiency, unspecified; Z79.899 Other long term (current) drug therapy

== ENCOUNTER → 2019-11-10 | Outpatient (CLI) | payer MEDICARE ==
--- NOTE | 2019-11-10 13:34 | REP ---
PELVIC SONOGRAPHY: HISTORY: Right ovarian cyst. Comparison sonography January 15, 2019. FINDINGS: Transabdominal and transvaginal scanning are performed. Uterine dimensions are normal measured at 7.7 x 2.6 x 4.9 cm. Endometrial thickness is 0.15 cm. Uterus is retroflexed. A normal left ovary is seen transabdominally measuring 2.3 x 0.8 x 2.2 cm. Right ovary measures 4.4 x 3.1 x 3.2 cm. This is inclusive of a right ovarian cyst measuring 3.5 x 2.8 x 2.3 cm. This is slightly larger but otherwise unchanged. No mural nodularity or thickened septations are seen. No free fluid is noted. IMPRESSION: Right ovarian cyst slightly larger today, 3.5 cm. Otherwise negative. Retroverted uterus. Electronically Signed by Rayshawn Hernandez MD 11/10/2019 04:18 P
== END ==
LOC: M RAD 10:24
PROVIDERS: ATTEND Obstetrics & Gynecology
DX: N83.201 Unspecified ovarian cyst, right side (principal)

== ENCOUNTER 2021-02-14 01:11 | Emergency (ER) | payer MEDICARE ==
[~2021-02-14] VITALS: Ht 160 cm; Wt 68.8 kg
[2021-02-14] MEDS ORDERED: ROBI1LIQ9 PO (01:22)
--- OUTSIDE RECORDS SUMMARY | 2021-02-14 01:26 | CCD ---
Author Author [facility] Organization [facility] Address Unknown Phone Unavailable Care Team Providers Care Musical Instruments Assembler Name Role Phone Cheikh Biggs Unavailable PROBLEMS Type Condition ICD9-CM Code [id number] Code Onset Dates Condition S tatus W/U Status Risk SNOMED Code Notes Problem Colon cancer screening Z12.11 Active confirmed 247993840 Problem IFG (impaired fasting glucose) R73.01 Active confir med 585439413 Problem Breast cancer screening Z12.39 Active confirmed 310879521 Problem Essential hypertension I10 Active confirmed 75976852 Problem Vitamin D deficiency E55.9 Active confirmed 46542987 Problem Cervical cancer screening Z12.4 Active confirmed 686962711 Problem Pure hypercholesterolemia E78.00 Active confirmed 426108693 Problem Autoimmune thyroiditis E06.3 Active confirmed 09169711 Problem Gastroesophageal reflux disease, esophagitis pre sence not specified K21.9 Active confirmed 896920312 Problem Age-related osteoporosis without current pathological fracture M81.0 Active confirmed 39592054 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 914414 002 Problem Abnormality of right breast on screening mammogram R92.8 Active confirmed 063538995 Problem Toxic effect of venom of oth er arthropod, accidental (unintentional), sequela T63.481S Active confirmed 219880776 Problem Thoracic spondylosis M47.814 Active confirmed 557545613 Problem Bilateral carpal tunnel syndrome G56.03 Active conf irmed 18274808 Problem Post herpetic neuralgia B02.29 Active confirmed 8571511 Problem Estrogen deficiency E28.39 Active confirmed 101208095 ALLERGIES Allergen (clinical drug ingredient) Drug/Non Drug Allergy do cumented on EMR Reaction Allergy Type Onset Date Status bee stings fainting Non Drug Allergy Active ENCOUNTERS from 1955 to 2021-01-27 Encounter Location Date Provider Diagnosis [place] [id number] [facility] [phone] [place] [address] 07 Jan, 2021 Cheikh Biggs IMMUNIZATIONS No Information SOCIAL HISTORY Tobacco Use: Social History Observation Description Date Details (start date - stop date) Never Smoker Sex Assigned At : Social History Observation Description Sex Assigned At Unknown Education: Question Answer Notes Level of Education: College Language: Question Answer Notes Languages spoken: Tajik Advent: Question Answer Notes Advent 14 [employer] Sexual Hx: Question Answer Notes Had sex in the last 12 months (vaginal, oral, or anal)? No Have you ever had an STD? No Alcohol Screening: Question Answer Notes Did you have a drink containing alcohol in the past year? No Points 0 Interpretation Negative Tobacco Use: Question Answer Notes Are you a: never smoker never smoker REASON FOR REFERRAL No Information VITAL SIGNS No information MEDICATIONS Medication SIG (Take, Route, Frequency, Duration) Notes Start Da te End Date Status Alendronate Sodium 70 MG 1 tablet 30 minutes before t he first food, beverage or medicine of the day with plain water Orally every 7 days for 90 day(s) Nov, Active Calcium 600 MG 2 tablet with meals Orally Once a day Active Resveratrol Active Probiotic - as directed Orally Activ e EpiPen 2-Andrea 0.3 MG/0.3ML as directed Injection Daily prn for 90 day( s) Active Vitamin D 400 UNIT Orally Once a day Active Vitamin C 500 MG as directed Orally Active Multivitamins 1 Orally daily Active PROCEDURES No Information RESULTS No Results REASON FOR VISIT change in BM MEDICAL (GENERAL) HISTORY Type Description Date Medical History GERD-07/03/19 UGI c MIK to above edgar Medical History C diff colitis (03/2018 2 ab x to rx H pylori Ab) resolved c vanco 14D Medical History generalized MP rash, favor EM, 08/2018 Medical History hypertension, essential Medical History 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 Valencia (favored idiopathic rxn of lip swelling to Augmentin 11/2016 given - amox challenge) Medical History AITD-12/2018 TPO 1132, TG 24 Medical History 04/2019 L V1 denominational zoster, 10/2019 R V1 z reddy Medical History endometrial polyp c inactive endometrium by 03/13/19 DC Michael done 2 thickened endomterium by pelvic US Medical History cervical spondylosis-01/03/20 MRI NR mild C56 NFN, new C71 HNP otherwise similar to 08/07/17 Medical History B CTS Medical History osteoporosis Surgical History C section 1992 Surgical History lap Appendectomy 11/2015 Surgical History [id number] 02/2013 Surgical History Removal of Paragangloma-[facility] 05/20 Surgical History laproscopic volvulus repair-Dr. Lassiter 11/08 Surgical History D&C 02/2019 Surgical History Hysteroscopy 02/2019 Goals Section No Information Health Concerns No Information MEDICAL EQUIPMENT No Information MENTAL STATUS No Information FUNCTIONAL STATUS No Information ASSESSMENTS No Information PLAN OF TREATMENT Medication Medication Name Sig Start Date Stop Date Alendronate Sodium 70 MG 1 tablet 30 minutes before t he first food, beverage or medicine of the day with plain water Orally every 7 days for 90 day(s) Nov, Vitamin D 400 UNIT Orally Once a day Vitamin C 500 MG as directed Orally EpiPen 2-Andrea 0.3 MG/0.3ML as directed Injection Daily prn for 90 day(s) Multivitamins 1 Orally daily Calcium 600 MG 2 tablet with meals Orally Once a day Next Appt Details Provider Name:Cheikh Biggs, 2021-01-28 0 4:00:00 PM, [address] [place] [address] , [place], [address], Provider Name:Cheikh Biggs, 2021-05-09 1 0:45:00 AM, [address] [place] [address] , [place], [address], Insurance Providers Payer Name Payer Address Payer Phone Insured Name Patient Relati onship to Insured Coverage Start Date Coverage End Date MEDICARE BLUE PPO [address] [place] [id number] ISAI[place] BUITRAGO self
--- OUTSIDE RECORDS SUMMARY | 2021-02-14 01:26 | CCD ---
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 506118 002 Problem Essential hypertension I10 Active confirmed 58206123 Problem Colon cancer screening Z12.11 Active confirmed 001439095 Problem Vitamin D deficiency E55.9 Active confirmed 19725663 Problem Toxic effect of venom of oth er arthropod, accidental (unintentional), sequela T63.481S Active confirmed 784810057 Problem Autoimmune thyroiditis E06.3 Active confirmed 16073779 Problem Post herpetic neuralgia B02.29 Active confirmed 9714457 Problem Cervical cancer screening Z12.4 Active confirmed 299803112 Problem Estrogen deficiency E28.39 Active confirmed 437637766 Problem Breast cancer screening Z12.39 Active confirmed 829652424 Problem Pure hypercholesterolemia E78.00 Active confirmed 186234922 Problem Gastroesophageal reflux disease, esophagitis pre sence not specified K21.9 Active confirmed 832646171 Problem Thoracic spondylosis M47.814 Active confirmed 480717440 Problem Bilateral carpal tunnel syndrome G56.03 Active conf irmed 36474674 ALLERGIES Allergen (clinical drug ingredient) Drug/Non Drug Allergy do cumented on EMR Reaction Allergy Type Onset Date Status bee stings fainting Non Drug Allergy Active ENCOUNTERS from 1955 to 2020-11-18 Encounter Location Date Provider Diagnosis [facility] [address] [facility] [phone] [place] [address] Oct, Cheikh Biggs IMMUNIZATIONS No Information SOCIAL HISTORY Tobacco Use: Social History Observation Description Date Details (start date - stop date) Never Smoker Sex Assigned At : Social History Observation Description Sex Assigned At Unknown Education: Question Answer Notes Level of Education: College Language: Question Answer Notes Languages spoken: Vietnamese Jain: Question Answer Notes Jain 14 [employer] Sexual Hx: Question Answer Notes Had sex [...] Notes Start Da te End Date Status Calcium 600 MG 1 tablet with meals Orally Once a day Active Multivitamins 1 Orally daily Active Probiotic - as directed Orally Activ e EpiPen 2-Andrea 0.3 MG/0.3ML as directed Injection Daily prn for 90 day( s) Active Vitamin D 400 UNIT Orally Once a day Active Vitamin C 500 MG as directed Orally Active PROCEDURES No Information RESULTS No Results REASON FOR VISIT script MEDICAL (GENERAL) HISTORY Type Description Date Medical History GERD-07/03/19 UGI c MIK to above edgar Medical History C diff colitis (03/2018 2 ab x to rx H pylori Ab) resolved c vanco 14D Medical History generalized MP rash, favor EM, 08/2018 Medical History hypertension, essential Medical History 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 Valencia (favored idiopathic rxn of lip swelling to Augmentin 11/2016 given - amox challenge) Medical History AITD-12/2018 TPO 1132, TG 24 Medical History 04/2019 L V1 protestant zoster, 10/2019 R V1 z reddy Medical History endometrial polyp c inactive endometrium by 03/13/19 DC Michael done 2 thickened endomterium by pelvic US Medical History cervical spondylosis-01/03/20 MRI NR mild C56 NFN, new C71 HNP otherwise similar to 08/07/17 Medical History B CTS Surgical History C section 1992 Surgical History lap Appendectomy 11/2015 Surgical History [id number] 02/2013 Surgical History Removal of Paragangloma-[facility] 05/20 Surgical History laproscopic volvulus repair-Dr. Lassiter 11/08 Surgical History D&C 02/2019 Surgical History Hysteroscopy 02/2019 Goals Section No Information Health Concerns No Information MEDICAL EQUIPMENT No Information MENTAL STATUS No Information FUNCTIONAL STATUS No Information ASSESSMENTS No Information PLAN OF TREATMENT Medication Medication Name Sig Start Date Stop Date EpiPen 2-Andrea 0.3 MG/0.3ML as directed Injection Daily prn for 90 day(s) Vitamin D 400 UNIT Orally Once a day Multivitamins 1 Orally daily Vitamin C 500 MG as directed Orally Next Appt Details Provider Name:Cheikh Biggs, 2020-12-06 1 1:45:00 AM, [address] [facility], , [place], [address], Insurance Providers Payer Name Payer Address Payer Phone Insured Name Patient Relati onship to Insured Coverage Start Date Coverage End Date MEDICARE BLUE PPO [address] [facility] [address] [facility] [id number] ISAIAS BUITRAGO self
--- OUTSIDE RECORDS SUMMARY | 2021-02-14 01:26 | CCD ---
Author Author [facility] Organization [facility] Address Unknown Phone Unavailable Care Team Providers Care Transport Manager Name Role Phone Cheikh Biggs Unavailable PROBLEMS Type Condition ICD9-CM Code LDA62-PI Code Onset Dates Condition S tatus W/U Status Risk SNOMED Code Notes Problem Essential hypertension I10 Active confirmed 44918473 Problem Colon cancer screening Z12.11 Active confirmed 711005824 Problem Cervical cancer screening Z12.4 Active confirmed 560404621 Problem Breast cancer screening Z12.39 Active confirmed 447557772 Problem Toxic effect of venom of oth er arthropod, accidental (unintentional), sequela T63.481S Active confirmed 141731759 Problem Vitamin D deficiency E55.9 Active confirmed 04318024 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 543083 002 Problem IFG (impaired fasting glucose) R73.01 Active confir med 366065133 Problem Gastroesophageal reflux disease, esophagitis pre sence not specified K21.9 Active confirmed 449162580 Problem Thoracic spondylosis M47.814 Active confirmed 495470106 Problem Bilateral carpal tunnel syndrome G56.03 Active conf irmed 91889570 Problem Constipation, chronic K59.09 Active confirmed 049606880 Problem Autoimmune thyroiditis E06.3 Active confirmed 89783723 Problem Herpes zoster B02.9 Active confirmed 990841 0 Problem Pure hypercholesterolemia E78.00 Active confirmed 642952691 Problem Post herpetic neuralgia B02.29 Active confirmed 9455647 Problem Estrogen deficiency E28.39 Active confirmed 360525910 Problem Age-related osteoporosis without current pathological fracture M81.0 Active confirmed 54728746 Problem Abnormality of right breast on screening mammogram R92.8 Active confirmed 794526318 ALLERGIES Allergen (clinical drug ingredient) Drug/Non Drug Allergy do cumented on EMR Reaction Allergy Type Onset Date Status Bee Sting fainting Drug Allergy Active ENCOUNTERS from 1955 to 2021-02-01 Encounter Location Date Provider Diagnosis [facility] [address] [facility] [address] [phone] [place] [address] Jan, Cheikh Biggs Constipation, chronic K59.09 ; Herpes zoster B02.9 ; Age-related osteoporosis without current pathological fracture M81.0 ; IFG (impaired fasting glucose) R73.01 ; Autoimmune thyroiditis E06.3 ; 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 ; Bilateral carpal tunnel syndrome G56.03 ; Breast cancer screening Z12.39 ; Post herpetic neuralgia B02.29 ; Thoracic spondylosis M47.814 ; Gastroesophageal reflux disease, esophagitis presence not specified K21.9 ; Rash R21 ; Essential hypertension I10 ; Toxic effect of venom of other arthropod, accidental (unintentional), sequela T63.481S ; Colon cancer screening Z12.11 ; Cervical ca ncer screening Z12.4 ; Vitamin D deficiency E55.9 and Pure hypercholesterolemia E78.00 IMMUNIZATIONS No Information SOCIAL HISTORY Tobacco Use: Social History Observation Description Date Details (start date - stop date) Never Smoker Sex Assigned At : Social History Observation Description Sex Assigned At Unknown Education: Question Answer Notes Level of Education: College Language: Question Answer Notes Languages spoken: German Mandaeism: Question Answer Notes Mandaeism 14 Evangelical Sexual Hx: Question Answer Notes Had sex [...] REASON FOR REFERRAL No Information VITAL SIGNS Weight 144 lbs Jan, Weight-kg 65.32 kg Jan, Height 64.5 in Jan, BMI 24.33 kg/m2 Jan, Heart Rate 117 /min Jan, Respiratory Rate 18 /min Jan, Temperature 97.5 degrees Fahrenheit Jan, Oximetry 99% Jan, Blood pressure systolic 140 mm Hg Jan, Blood pressure diastolic 70 mm Hg Jan, MEDICATIONS Medication SIG (Take, Route, Frequency, Duration) Notes Start Da te End Date Status EpiPen 2-Andrea 0.3 MG/0.3ML as directed Injection Daily prn for 90 day( s) Active Valtrex 1 GM 1 tablet Orally tid for 7 day(s) Jan, Active Probiotic - as directed Orally Activ e Resveratrol Active Zirgan 0.15 % 1 drop into the lower eyelid of affected eye Ophthalmic Five times a day for 7 day(s) Jan, Active Vitamin D 400 UNIT Orally Once a day Active Vitamin C 500 MG as directed Orally Active Calcium 600 MG 2 tablet with meals Orally Once a day Active Alendronate Sodium 70 MG 1 tablet 30 minutes before t he first food, beverage or medicine of the day with plain water Orally every 7 days for 90 day(s) Active Polyethylene Glycol - 17 gm orally in 8 oz liquid daily for 30 D ays Jan, Active Multivitamins 1 Orally daily Active PROCEDURES No Information RESULTS No Results REASON FOR VISIT BM concerns MEDICAL (GENERAL) HISTORY Type Description Date Medical History GERD-07/03/19 UGI c MIK to above [place] Medical History C diff colitis (03/2018 2 ab x to rx H pylori Ab) resolved c vanco 14D Medical History generalized MP rash, favor EM, 08/2018 Medical History hypertension, essential Medical History ho cecal volvulus sp repair 10/2018-Bar Medical History IFG Medical History ho paraganglionoma excised -[place] (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 Valencia (favored idiopathic rxn of lip swelling to Augmentin 11/2016 given - amox challenge) Medical History AITD-12/2018 TPO 1132, TG 24 Medical History 04/2019 L V1 roman catholic zoster, 10/2019 R V1 z reddy Medical History endometrial polyp c inactive endometrium by 03/13/19 DC Michael done 2 thickened endomterium by pelvic US Medical History cervical spondylosis-01/03/20 MRI NR mild C56 NFN, new C71 HNP otherwise similar to 08/07/17 Medical History B CTS Medical History osteoporosis Surgical History C section 1993 Surgical History lap Appendectomy 11/2015 Surgical History [id number] 02/2013 Surgical History Removal of Paragangloma-[facility] 05/20 Surgical History laproscopic volvulus repair-Dr. Lassiter 11/08 Surgical History D&C 02/2019 Surgical History Hysteroscopy 02/2019 Goals Section No Information Health Concerns No Information MEDICAL EQUIPMENT No Information MENTAL STATUS No Information FUNCTIONAL STATUS No Information ASSESSMENTS Encounter Date Diagnosis Assessment Notes Treatment Notes Treatm ent Clinical Notes Jan, Herpes zoster (ICD-10 - B02.9) Advised Shingrix vaccine in 4-6W if current symptoms are completely resolved 01/28/21 3D recurrent L V1 zoster-2 3 mm lesions L posterior superior parietal, 1 2mm medial periorbital meidal to canthus; ergo, valcyc 1 TID 7D, Zirgan 1 gtt 5x daily x 7D (has fu on 01/[address] Jones but no obvious keratitis) Jan, Constipation, chronic (ICD-10 - K59.09) h/o volvulus repair 01/28/21 ~7D B3 BMs c mild straining but s abdominal pain, diarrhea, F/C, no real improvement c doc 50; ergo, + PG 17 QD c update cb in 5D Jan, Age-related osteoporosis wit hout current pathological fracture (ICD-10 - M81.0) no personel nor FH porosis/fx 11/10/20 baseline DXA ([facility]) L fem neck -1.5/total hip -0.9/-2.7; ergo, + WBE and alison 70 q7D Jan, IFG (impaired fasting glucose) (ICD-10 - R73.01) FBGs high 90s no DM in 1DR 11/03/20 5.6 (96, 6) 04/07/20 5.6 (91, 5) 10/01/19 (102/12) 12/2018 A1C 5.6, c YOLI-IR 1.3 (91, 6) Jan, Autoimmune thyroiditis (ICD-10 - E06.3) no ho hypo/hyperthyroid nor FH thyroid dis 11/03/20 2.1, 1.2 04/07/20 2.3, 1.2, TPO 187 (0-34) 10/01/19 1.7, 0.9 02/2019 TPO Ab 1114, 1.0, 0.9 12/2018 TPO 1132/TG 24 10/14/[address] Valencia for "rash" knapp -Jake/RF, TSH/TT4 1.6/5.8, but TPO 122, TG 4.2 (0-0.9) 06/2017 TSH/FT4 1.1/1.0 08 Jan, 2021 Paraganglioma (ICD-10 - D44.7) h/o excision [place] 05/2018 WB PET S-T using Ga-68 NETSOPT tracer s evidence of somatostatin rec uptake-[place] tc 24H urine cat/met given HTN (never was done before or p excision) 07/2015 - [facility] pargang/pheo panel (for MEN 2A, 2B) Jan, Bilateral carpal tunnel syndrome (ICD-10 - G56.0 3) Stable on home PT s CTS 12/2019 improved c PT [place] [facility] [place] Jan, Breast cancer screening (ICD-10 - Z12.39) 11/22/20 B breast US: prominent R axillary LN c focal cortical thickening (favor 09/2020 4W recurrent pharyngitis rxed c amox by her dentist); planned 12/29/20 US R axillary US 11/10/20 B C0 mammo [address] prominence (but no change of breast tissue) 10/2019 B C1 mammogram ([place]) Jan, Post herpetic neuralgia (ICD-10 - B02.29) favor Shingrix 04/2020 L V1 mild zoster rxed c valcyc 7D (no ocular involvement per Jones) c hyperesthesia 04/2019 R V1 moderate zoster Jan, Thoracic spondylosis (ICD-10 - M47.814) R>>L c radicular pain to lower abd-worse c painting/twist (initially px felt 2 adhesions 2 volvulus surgery) Contingency: PT, MRI Jan, Gastroesophageal reflux dise ase, esophagitis presence not specified (ICD-10 - K21.9) Stable off meds no previous EGD 06/30/19 + esomep 40 qAM x 6W given recurrent MIK (mainly pre prand) s red flag sx and checked UGI c MIK to [place] c resolved sx; therefore, stopped 02/2018 panto 40 did NOT help in AM previous H pylori rx which probably caused C diff Jan, Rash (ICD-10 - R21) No recurrent rash DDx: EM, ? resolving thyroiditis, ? HSV, subclinical viral infection Contingency: HSV titer, bx if recurs 10/14/[address] Annie Elliott/RF, TSH/TT4 1.6/5.8, but TPO 122, TG 4.2 (0-0.9) 09/04/18 sudden onset targetoid lesions on B feet, quickly spreading entire body, ? throat-swelling s dyspnea while in [place]; at clinic there given dexamethasone IM in clinic and pred 7D taper and TA cr BID c complete resolution in ~3W. No concomitant nor precedent constituitonal sx Jan, Essential hypertension (ICD-10 - I10) Stable on behavorial rx 11/03/20 15/0.7, 4.0 08/01/17 24H Holter HR 46-137, mean 75 Jan, Toxic effect of venom of oth er arthropod, accidental (unintentional), sequela (ICD-10 - T63.481S) Continue Epi-Pen prn Jan, Colon cancer screening (ICD-10 - Z12.11) repeat colon 02/2023-W Jan, Cervical cancer screening (ICD-10 - Z12.4) 07/2018 NILM, -HPV Jan, Vitamin D deficiency (ICD-10 - E55.9) 11/03/20 57, 9.1, 19 on CC 1200, D3 400 10/01/19 36, 8.7, 46 02/2019 48, 9.4 12/2018 vitamin D 39, 9.2, 35 on D3 400 Jan, Pure hypercholesterolemia (ICD-10 - E78.00) Continue dietary control 11/03/20 124/57/51, CRP 3 (0-10) 10/01/19 106/61/78 12/2018 lipids 111/56/59 TSH as per AITD PLAN OF TREATMENT Medication Medication Name Sig Start Date Stop Date EpiPen 2-Andrea 0.3 MG/0.3ML as directed Injection Daily prn for 90 day(s) Alendronate Sodium 70 MG 1 tablet 30 minutes before t he first food, beverage or medicine of the day with plain water Orally every 7 days for 90 day(s) Polyethylene Glycol - 17 gm orally in 8 oz liquid daily for 30 Days Jan, Calcium 600 MG 2 tablet with meals Orally Once a day Valtrex 1 GM 1 tablet Orally tid for 7 day(s) Jan, Zirgan 0.15 % 1 drop into the lower eyelid of affected eye Ophthalmic Five times a day for 7 day(s) Jan, Vitamin D 400 UNIT Orally Once a day Vitamin C 500 MG as directed Orally Multivitamins 1 Orally daily Treatment Notes Assessment Notes Clinical Notes Toxic effect of venom of other arthropod, accidental (uninte ntional), sequela Continue Epi-Pen prn Herpes zoster Advised Shingrix vac cine in 4-6W if current symptoms are completely raovnhhg86/8/21 3D recurrent L V1 zoster-2 3 mm lesions L posterior superior parietal, 1 2mm medial periorbital meidal to canthus; ergo, valcyc 1 TID 7D, Zirgan 1 gtt 5x daily x 7D (has fu on 01/[address] Jones but no obvious keratitis) Essential hypertension Stable on behavor ial rx11/03/20 15/0.7, 4.04 24H Holter HR 46-137, mean 75 Constipation, chronic h/o volvulus repai r1 ~7D B3 BMs c mild straining but s abdominal pain, diarrhea, F/C, no real improvement c doc 50; ergo, + PG 17 QD c update cb in 5D Cervical cancer screening 07/2018 NILM, - HPV Age-related osteoporosis without current pathological fractu re no personel nor FH porosis/fx11/10/20 baseline DXA ([place]) L fem neck -1.5/total hip -0.9/-2.7; ergo, + WBE and alison 70 q7D Colon cancer screening repeat colon 02/22 023-W IFG (impaired fasting glucose) FBGs high 90sno DM in 1DR11/03/20 5.6 (96, 6)04/07/20 5.6 (91, 5)10/01/19 (102/12)12/2018 A1C 5.6, c YOLI-IR 1.3 (91, 6) Pure hypercholesterolemia Continue dieta ry control11/03/20 124/57/51, CRP 3 (0- 10)10/01/19 106/61/789/2019 lipids 111/56/59TSH as per AITD Autoimmune thyroiditis no ho hypo/hypert hyroid nor FH thyroid dis11/03/20 2.1, 1.212/ 2.3, 1.2, TPO 187 (0-34)10/01/19 1.7, 0.911 TPO Ab 1114, 1.0, 0. TPO 1132/TG [address] Valencia for "rash" knapp -Jake/RF, TSH/TT4 1.6/5.8, but TPO 122, TG 4.2 (0-0.9)06/2017 TSH/FT4 1.1/1.0 Vitamin D deficiency 11/03/20 57, 9.1, 19 on CC 1200, D3 36, 8.7, 4611 48, 9. vitamin D 39, 9.2, 35 on D3 400 Paraganglioma h/o excision [facility] 019 WB PET S-T using Ga-68 NETSOPT tracer s evidence of somatostatin rec uptake-[facility] 24H urine cat/met given HTN (never was done before or p excision)07/2015 - [facility] pargang/pheo panel (for MEN 2A, 2B) Bilateral carpal tunnel syndrome Stable on home PT s CTS12/2019 improved c PT at [facility] Rash No recurrent rashDDx : EM, ? resolving thyroiditis, ? HSV, subclinical viral infectionContingency: HSV titer, bx if recurs10/14/[address] Annie Elliott/RF, TSH/TT4 1.6/5.8, but TPO 122, TG 4.2 (0-0.9)09/04/18 sudden onset targetoid lesions on B feet, quickly spreading entire body, ? throat-swelling s dyspnea while in [place]; at clinic there given dexamethasone IM in clinic and pred 7D taper and TA cr BID c complete resolution in ~3W. No concomitant nor precedent constituitonal sx Gastroesophageal reflux disease, esophagitis presence not sp ecified Stable off medsno previous EGD3/01/10 + esomep 40 qAM x 6W given recurrent MIK (mainly pre prand) s red flag sx and checked UGI c MIK to [place] c resolved sx; therefore, ymtoknx63/2018 panto 40 did NOT help in AMprevious H pylori rx which probably caused C diff Breast cancer screening 11/22/20 B breast US: prominent R axillary LN c focal cortical thickening (favor 09/2020 4W recurrent pharyngitis rxed c amox by her dentist); planned 12/29/20 US R axillary US11/10/20 B C0 mammo [address] prominence (but no change of breast tissue)10/2019 B C1 mammogram ([facility]) Post herpetic neuralgia favor Shingrix L V1 mild zoster rxed c valcyc 7D (no ocular involvement per Jones) c hyperesthesia04/2019 R V1 moderate zoster Thoracic spondylosis R>>L c radicular pa in to lower abd-worse c painting/twist (initially px felt 2 adhesions 2 volvulus surgery)Contingency: PT, MRI Next Appt Details , BW 1W prior Reason: Provider Name:Cheikh Biggs, 2021-05-09 1 0:45:00 AM, [address] [facility], , [place], [address], Insurance Providers Payer Name Payer Address Payer Phone Insured Name Patient Relati onship to Insured Coverage Start Date Coverage End Date MEDICARE BLUE PPO [id number] BLUE [address] [place] [id number] ISAIAS BUITRAGO self
--- OUTSIDE RECORDS SUMMARY | 2021-02-14 01:26 | CCD ---
Author Author Misbah Quinonez MD [facility] Organization Misbah Quinonez MD [facility] Address [address] [address] Phone Care Team Providers Care Nursing Resident Name Role Phone Cristiano TIERNEY, LARA, Misbah Chau Unavailable [phone] Cheikh Biggs MD PP [phone] Reason for Referral No Reason for Referral Recorded Problems Includes: Active, inactive, and resolved Problems All Visits Onset Date - Time Resolved Date - Time Provider Co ndition Status Posterior Vitreous Detachment 02/03/2020 - 12:00AM Misbah Quinonez MD, LARA Active Neuralgia Postherpetic 05/14/2019 - 12:00AM Misbah Lehman MD, LARA Active Corneal Dystrophy Endothelial Fuchs' 05/05/2019 - 12:00AM Misbah Quinonez MD, FACS Active Herpes Zoster Conjuctivitis 05/05/2019 - 12:00AM Unknown - Unkno wn Misbah Quinonez MD, LARA Resolved Dry Eye Syndrome Both Eyes 05/05/2019 - 12:00AM Misbah Quinonez MD, FACS Active Plan of Treatment Future Appointments Date Time Location Provider 1 Year Follow-Up 09/06/2021 8:15AM Misbah Quinonez MD [facility] Misbah Quinonez MD, FACS Assessments Includes: Assessments for all patient encounters Findings Encounter Date Dry eye syndrome of both eyes 1 Year Follow-Up with Antolin Quinonez MD, FACS 09/08/2020 Fuchs' endothelial corneal dystrophy 1 Year Follow-Up with Misbah Quinonez MD, FACS 09/08/2020 Vitreous degeneration 1 Year Follow-Up with Misbah donaldson MD, FACS 09/08/2020 Posterior vitreous detachment Dilated Fundal Exam with Misbah Quinonez MD, FACS 03/05/2020 Posterior vitreous detachment TRIAGE NON URGENT with Susanna Quinonez MD, FACS 02/03/2020 Postherpetic neuralgia TRIAGE NON URGENT with Misbah Duval MD, FACS 12/05/2019 Herpes zoster conjuctivitis 10 - 14 Day Follow-Up with Misbah Quinonez MD, FACS 05/14/2019 Postherpetic neuralgia 10 - 14 Day Follow-Up with Misbah Lehman MD, FACS 05/14/2019 Dry eye syndrome of both eyes EMERGENCY RM FOLU with Susanna Quinonez MD, FACS 05/05/2019 Fuchs' endothelial corneal dystrophy EMERGENCY RM FOLU with Misbah Quinonez MD, FACS 05/05/2019 Herpes zoster conjuctivitis EMERGENCY RM FOLU with Misbah Quinonez MD, [facility] 05/05/2019 Instructions Instructions not supported for this document typeNo Instructions Recorded Medical Equipment - Implanted Devices Includes: Current and historical DevicesNo Medical Equipment Recorded Medications Includes: Current and historical Medications Current Medications (continue as prescribed) valACYclovir HCl 1 GM Oral Tablet 05/05/2019 Provid er: Diagnosis: Multivitamins Oral Capsule 05/05/2019 Provider: Diagnosis: Vitamin C Oral Tablet 05/05/2019 Provider: Diagnosis: Calcium Oral Tablet 05/05/2019 Provider: Diagnosis: Daily Probiotic Oral Capsule 05/05/2019 Provider: Diagnosis: Vitamin D3 Oral Capsule 05/05/2019 Provider: Diagnosis: Past Medications on file Zirgan 0.15% Ophthalmic Gel 05/05/2019 - 09/09/2019 Provider : Misbah Quinonez MD, [facility] Diagnosis: Zoster conjunctiviti s One drop four times a day in the left eye Medications Administered Includes: Administered Medications in patient's chartNo Administered Medications Recorded Vital Signs Includes: Vital Signs from 01/24/2020 through 01/23/2021No Vital Signs Recorded For Specified Dates Results Includes: Results from 01/24/2020 through 01/23/2021No Results Recorded For Specified Dates History of Present Illness History of Present Illness not supported for this document typeNo History of Present Illness Recorded Social History Description Last Updated Tobacco non-user 09/08/2020 No tobacco use 02/03/2020 Not using alcohol 02/03/2020 Not using drugs 02/03/2020 Smoking status : Never smoker 02/03/2020 Procedures and Surgical History Includes: Procedures from 01/24/2020 through 01/23/2021 Procedures Code Diagnosis Performing Provider Service Location Service Date Intermediate Eye Exam Established Patient [id number] Endothelial corneal dystrophy, bilateral, Dry eye syndrome of bilateral lacrimal glands, Vitreous degeneration, bilateral Misbah Quinonez MD, LARA Quinonez MD [facility] 2020 Intermediate Eye Exam Established Patient 92090 Vitreo us degeneration, left eye Misbah Quinonez MD, LARA Quinonez MD [facility] 03/05/2020 Intermediate Eye Exam Established Patient 20754 Vitreo us degeneration, left eye Misbah Quinonez MD, LARA Quinonez MD [facility] 02/03/2020 Surgical History Last Updated Surgical / procedural history 1993, Appendectomy 2015, Abdominal paraganglion surgery 2018, Emergency abdominal surgery 2019 05/05/2019 Medical History Includes: Medical History in patient's chart Description Last Updated No reported medical history 02/03/2020 Currently wearing eyeglasses 05/14/2019 No recent change in medical history 05/14/2019 Family History Includes: Family History in patient's chart Description Last Updated Maternal history of family history of cancer 0 Paternal history of heart disease 02/03/2020 Review of Systems Review of Systems not supported for this document typeNo Review of Systems Recorded Mental Status Mental Status not supported for this document type Description Oriented to time, place, and person Functional Status Functional Status not supported for this document typeNo Functional Status Recorded Physical Exam Physical Exam not supported for this document typeNo Physical Exam Recorded Immunizations Includes: Immunizations in patient's chartNo Immunizations Recorded Allergies Includes: Active, inactive, and resolved AllergiesNo Known Allergies Encounters Includes: Encounters from 01/24/2020 through 01/23/2021 Encounter Provider Location Date Check-In Time Check-Out Time D iagnosis 1 Year Follow-Up Misbah Quinonez MD, LARA Mullins [facility] 09/08/2020 8:17AM 9:03AM Corneal Dystrophy En dothelial Fuchs', Dry Eye Syndrome Both Eyes, Vitreous Disorders Degeneration Dilated Fundal Exam Misbah Quinonez MD, LARA tabor MD [facility] 03/05/2020 12:17PM 12:47PM Posterior Vitreous D etachment TRIAGE NON URGENT Misbah Quinonez MD, FACS Misbah Quinonez MD [facility] 02/03/2020 1:03PM 2:16PM Posterior Vitreous D etachment Insurance Includes: Active Insurance Policies Plan Name Member ID Group # Subscriber Relationship Effective Da vania 1 - MEDICARE BLUE [id number] Allyssa Jones Self Advance Directives Includes: Current Advance DirectivesNo Advance Directives Recorded Health Concerns Includes: Active Health ConcernsNo Active Health Concerns Recorded Goals Includes: Active GoalsNo Active Goals Recorded Interventions Includes: Interventions for active GoalsNo Interventions Recorded Evaluations & Outcomes Includes: Evaluations & Outcomes for active GoalsNo Outcomes Recorded
--- OUTSIDE RECORDS SUMMARY | 2021-02-14 01:26 | CCD ---
Author Author [facility] Organization [facility] Address Unknown Phone Unavailable Care Team Providers Care Overlock Sewing Machine Operator Name Role Phone Cheikh Biggs Unavailable PROBLEMS Type Condition ICD9-CM Code [id number] Code Onset Dates Condition S tatus W/U Status Risk SNOMED Code Notes Problem Colon cancer screening Z12.11 Active confirmed 185308983 Problem IFG (impaired fasting glucose) R73.01 Active confir med 956403247 Problem Breast cancer screening Z12.39 Active confirmed 524943522 Problem Essential hypertension I10 Active confirmed 10520543 Problem Vitamin D deficiency E55.9 Active confirmed 62377658 Problem Cervical cancer screening Z12.4 Active confirmed 156900472 Problem Pure hypercholesterolemia E78.00 Active confirmed 265713100 Problem Autoimmune thyroiditis E06.3 Active confirmed 40736592 Problem Gastroesophageal reflux disease, esophagitis pre sence not specified K21.9 Active confirmed 216284919 Problem Age-related osteoporosis without current pathological fracture M81.0 Active confirmed 62278049 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 112021 002 Problem Abnormality of right breast on screening mammogram R92.8 Active confirmed 235269855 Problem Toxic effect of venom of oth er arthropod, accidental (unintentional), sequela T63.481S Active confirmed 601065225 Problem Thoracic spondylosis M47.814 Active confirmed 646265609 Problem Bilateral carpal tunnel syndrome G56.03 Active conf irmed 33006049 Problem Post herpetic neuralgia B02.29 Active confirmed 6060174 Problem Estrogen deficiency E28.39 Active confirmed 914398761 ALLERGIES Allergen (clinical drug ingredient) Drug/Non Drug Allergy do cumented on EMR Reaction Allergy Type Onset Date Status bee stings fainting Non Drug Allergy Active ENCOUNTERS from 1955 to 2020-12-30 Encounter Location Date Provider Diagnosis [place] [id number] [facility] [phone] [place] [address] 09 Dec, 2020 Cheikh Biggs Abnormality of right breast on screening mammogram R92.8 IMMUNIZATIONS No Information SOCIAL HISTORY Tobacco Use: Social History Observation Description Date Details (start date - stop date) Never Smoker Sex Assigned At : Social History Observation Description Sex Assigned At Unknown Education: Question Answer Notes Level of Education: College Language: Question Answer Notes Languages spoken: Kazakh Mandaeism: Question Answer Notes Mandaeism 14 [employer] Sexual Hx: Question Answer Notes Had sex [...] Information RESULTS No Results REASON FOR VISIT right breast Us MEDICAL (GENERAL) HISTORY Type Description Date Medical History GERD-07/03/19 UGI c MIK to above [place] Medical History C diff colitis (03/2018 2 ab x to rx H pylori Ab) resolved c vanco 14D Medical History generalized MP rash, favor EM, 08/2018 Medical History hypertension, essential Medical History 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 Valencia (favored idiopathic rxn of lip swelling to Augmentin 11/2016 given - amox challenge) Medical History AITD-12/2018 TPO 1132, TG 24 Medical History 04/2019 L V1 sabianist zoster, 10/2019 R V1 z reddy Medical History endometrial polyp c inactive endometrium by 03/13/19 DC Michael done 2 thickened endomterium by pelvic US Medical History cervical spondylosis-01/03/20 MRI NR mild C56 NFN, new C71 HNP otherwise similar to 08/07/17 Medical History B CTS Medical History osteoporosis Surgical History C section 1992 Surgical History lap Appendectomy 11/2015 Surgical History [id number] 02/2013 Surgical History Removal of Paragangloma-[facility] 05/20 Surgical History laproscopic volvulus repair-Dr. Lassiter 11/08 Surgical History D&C 02/2019 Surgical History Hysteroscopy 02/2019 Goals Section No Information Health Concerns No Information MEDICAL EQUIPMENT No Information MENTAL STATUS No Information FUNCTIONAL STATUS No Information ASSESSMENTS Encounter Date Diagnosis Assessment Notes Treatment Notes Treatm ent Clinical Notes Dec, Abnormality of right breast on screening mammogram (ICD-10 - R92.8) PLAN OF TREATMENT Medication Medication Name Sig [...] tablet with meals Orally Once a day Treatment Notes Test Name Order Date WWBC Breast U/S Unilateral Complete 2020-12-30 Next Appt Details Provider Name:Cheikh Biggs, 2021-05-09 1 0:45:00 AM, [address] [facility], , [place], [address], Insurance Providers Payer Name Payer Address Payer Phone Insured Name Patient Relati onship to Insured Coverage Start Date Coverage End Date MEDICARE BLUE PPO [address] [place] [id number] ISAIAS BUITRAGO self
--- OUTSIDE RECORDS SUMMARY | 2021-02-14 01:26 | CCD | Continuity of Care Document ---
Author Author Allyssa CLAIRE PA Organization Unknown Address [address] [place] [address] [place] [address] Phone [phone] Care Team Providers Care Insurance Associate Name Role Phone Cheikh Biggs MD AUTM [phone] Problems Active Problems Provider Date Streptococcal sore throat Henrik Trejo, P.A. Onset: 04/19/2010 Social History Type Date Description Comments Sex Unknown Tobacco Use Start: Unknown Never Smoked Cigarettes ETOH Use Denies alcohol use Tobacco Use Start: Unknown Patient has never smoked Smoking Status Reviewed: 11/14/19 Patient has never smoked Allergies and adverse reactions Active Allergies Criticality Reaction | Severity Comments Date NKDA Unable to assess criticality 04/17/2010 Bee Sting Unable to assess criticality anaphylaxis 03/14/2014 Medications Active Medications SIG Qnty Indications Ordering Provide r Date Epipen 0.3mg/0.3ML Device inject into ange-lateral thigh as directed for bee stings 1units Unknown Mvi Unknown Probiotic Capsules Unknown Immunizations Description No Information Available Vital Signs Date Vital Result Comment 11/14/2019 3:48pm BP Systolic 136 mmHg BP Diastolic 83 mmHg Heart Rate 100 /min Respiratory Rate 17 /min O2 % BldC Oximetry 98 % Body Temperature 98.3 F Weight 153.00 lb Height 63 inches 5'3" BMI (Body Mass Index) 27.1 kg/m2 Pain Level 0 05/03/2019 12:07pm BP Systolic 140 mmHg BP Diastolic 89 mmHg Heart Rate 98 /min Respiratory Rate 16 /min O2 % BldC Oximetry 98 % Body Temperature 98.3 F Weight 140.00 lb Height 64 inches 5'4" BMI (Body Mass Index) 24.0 kg/m2 Pain Level 2 Results Description No Information Available Procedures Description No Information Available Medical Devices Description No Information Available Encounters Description No Information Available Assessments Date Code Description Provider 02/11/2021 Z20.828 Contact with and (friedman spected) exposure to other viral communicable diseases JIMENA Villalobos Plan of Treatment No Information Available Functional Status Description No Information Available Mental Status Description No Information Available Referrals Description No Information Available
--- OUTSIDE RECORDS SUMMARY | 2021-02-14 01:26 | CCD ---
Author Author Misbah Quinonez MD [facility] Organization Misbah Quinonez MD [facility] Address [address] [address] Phone Care Team Providers Care Mushroom Growing Supervisor Name Role Phone Cristiano TIERNEY, LARA, Misbah Chau Unavailable [phone] Cheikh Biggs MD PP [phone] Reason for Referral No Reason for Referral [...] Year Follow-Up 09/06/2021 8:15AM Misbah Quinonez MD [facility] Misbah Quinonez MD, FACS Assessments [...] EMERGENCY RM [facility] with Misbah Quinonez MD, [facility] 05/05/2019 Instructions Instructions not supported for this [...] - 09/09/2019 Provider : Misbah Quinonez MD, [facility] Diagnosis: Zoster conjunctiviti s One drop four times a day in the left eye Medications Administered Includes: Administered Medications in patient's chartNo Administered Medications Recorded Vital Signs Includes: Vital Signs from 01/16/2020 through 01/15/2021No Vital Signs Recorded For Specified Dates Results Includes: Results from 01/16/2020 through 01/15/2021No Results Recorded For Specified Dates History of Present Illness History of Present Illness not supported for this document typeNo History of Present Illness Recorded Social History Description Last Updated Tobacco non-user 09/08/2020 No tobacco use 03/05/2020 Not using alcohol 03/05/2020 Not using drugs 03/05/2020 Smoking status : Never smoker 03/05/2020 Procedures and Surgical History Includes: Procedures from 01/16/2020 through 01/15/2021 Procedures Code Diagnosis Performing Provider Service Location Service Date Intermediate Eye Exam Established Patient [id number] Endothelial corneal dystrophy, bilateral, Dry eye syndrome of bilateral lacrimal glands, Vitreous degeneration, bilateral Misbah Quinonez MD, LARA Quinonez MD [facility] 2020 Intermediate Eye Exam Established Patient 64905 Vitreo us degeneration, left eye Misbah Quinonez MD, LARA Quinonez MD [facility] 03/05/2020 Intermediate Eye Exam Established Patient 16659 Vitreo us degeneration, left eye Misbah Quinonez MD, LARA Quinonez MD [facility] 02/03/2020 Surgical History Last Updated Surgical / procedural history 1992, Appendectomy 2015, Abdominal paraganglion surgery 2018, Emergency abdominal surgery 2019 05/05/2019 Medical History Includes: Medical History in patient's chart Description Last Updated No reported medical history 03/05/2020 Currently wearing eyeglasses 05/14/2019 No recent change in medical history 05/14/2019 Family History Includes: Family History in patient's chart Description Last Updated Maternal history of family history of cancer 0 Paternal history of heart disease 03/05/2020 Review of Systems Review of Systems not [...] AllergiesNo Known Allergies Encounters Includes: Encounters from 01/16/2020 through 01/15/2021 Encounter Provider Location Date Check-In Time Check-Out Time D iagnosis 1 Year Follow-Up Misbah Quinonez MD, LARA Mullins [facility] 09/08/2020 8:17AM 9:03AM Corneal Dystrophy En dothelial Fuchs', Dry Eye Syndrome Both Eyes, Vitreous Disorders Degeneration Dilated Fundal Exam Misbah Quinonez MD, LARA tabor MD [facility] 03/05/2020 12:17PM 12:47PM Posterior Vitreous D etachment TRIAGE NON URGENT Misbah Quinonez MD, FACS Misbah Quinonez MD [facility] 02/03/2020 1:03PM 2:16PM Posterior Vitreous D etachment Insurance Includes: Active Insurance Policies Plan Name Member ID Group # Subscriber Relationship Effective Da vania 1 - MEDICARE BLUE [id number] Allyssa Jones Self Advance Directives Includes: Current Advance DirectivesNo Advance Directives Recorded Health Concerns Includes: Active Health ConcernsNo Active Health Concerns Recorded Goals Includes: Active GoalsNo Active Goals Recorded Interventions Includes: Interventions for active GoalsNo Interventions Recorded Evaluations & Outcomes Includes: Evaluations & Outcomes for active GoalsNo Outcomes Recorded
--- OUTSIDE RECORDS SUMMARY | 2021-02-14 01:26 | CCD ---
Author Author [facility] Organization [facility] Address Unknown Phone Unavailable Care Team Providers Care Engineering Associate Name Role Phone Maring, Anshul PA Unavailable Unavailable Maring, Anshul PA Unavailable Unavailable Maring, Anshul PA Unavailable Unavailable Maring, Anshul PA Unavailable Unavailable Maring, Anshul PA Unavailable Unavailable Maring, Anshul PA Unavailable Unavailable Maring, Anshul PA Unavailable Unavailable Maring, Anshul PA Unavailable Unavailable Maring, Anshul PA Unavailable Unavailable Maring, Anshul PA Unavailable Unavailable Maring, Anshul PA Unavailable Unavailable Maring, Anshul PA Unavailable Unavailable Maring, Anshul PA Unavailable Unavailable Maring, Anshul PA Unavailable Unavailable Maring, Anshul PA Unavailable Unavailable Maring, Anshul PA Unavailable Unavailable AMALIA ALVAREZ Unavailable Unavailable Brenda Forrester PA Unavailable Unavailable Brenda Forrester PA Unavailable Unavailable Brenda Forrester PA Unavailable Unavailable Brenda Forrester PA Unavailable Unavailable Brenda Forrester PA Unavailable Unavailable Brenda Forrester PA Unavailable Unavailable Forrester, M Barratt PA Unavailable Unavailable Forrester, M Barratt PA Unavailable Unavailable Forrester, M Barratt PA Unavailable Unavailable Forrester, M Barratt PA Unavailable Unavailable Forrester, M Barratt PA Unavailable Unavailable Forrester, M Barratt PA Unavailable Unavailable Forrester, M Barratt PA Unavailable Unavailable Forrester, M Barratt PA Unavailable Unavailable Forrester, M Barratt PA Unavailable Unavailable Forrester, M Barratt PA Unavailable Unavailable Forrester, M Barratt PA Unavailable Unavailable Forrester, M Barratt PA Unavailable Unavailable Forrester, M Barratt PA Unavailable Unavailable Forrester, M Barratt PA Unavailable Unavailable Forrester, M Barratt PA Unavailable Unavailable Forrester, M Barratt PA Unavailable Unavailable Forrester, M Barratt PA Unavailable Unavailable Forrester, M Barratt PA Unavailable Unavailable Forrester, M Barratt PA Unavailable Unavailable Forrester, M Barratt PA Unavailable Unavailable Forrester, M Barratt PA Unavailable Unavailable Forrester, M Barratt PA Unavailable Unavailable Forrester, M Barratt PA Unavailable Unavailable Subramanian Jones, Alejandro Crawley MD, FACS Unavailable Unavailable Subramanian Jones, Alejandro Crawley MD, FACS Unavailable Unavailable Subramanian Jones, Alejandro Crawley MD, FACS Unavailable Unavailable Subramanian Jones, Alejandro Crawley MD, FACS Unavailable Unavailable Subramanian Jones, Alejandro Crawley MD, FACS Unavailable Unavailable Subramanian Jones, Alejandro Crawley MD, FACS Unavailable Unavailable Subramanian Jones, Alejandro Crawley MD, FACS Unavailable Unavailable Subramanian Jones, Alejandro Crawley MD, FACS Unavailable Unavailable Subramanian Jones, Alejandro Crawley MD, FACS Unavailable Unavailable Subramanian Jones, Alejandro Crawley MD, FACS Unavailable Unavailable Subramanian Jones, Alejandro Crawley MD, FACS Unavailable Unavailable Subramanian Jones, Alejandro Crawley MD, FACS Unavailable Unavailable Subramanian Jones, Alejandro Crawley MD, FACS Unavailable Unavailable Subramanian Jones, Alejandro Crawley MD, FACS Unavailable Unavailable Subramanian Jones, Alejandro Crawley MD, FACS Unavailable Unavailable Subramanian Jones, Alejandro Crawley MD, FACS Unavailable Unavailable Subramanian Jones, Alejandro Crawley MD, FACS Unavailable Unavailable Subramanian Jones, Alejandro Crawley MD, FACS Unavailable Unavailable Subramanian Jones, Alejandro Crawley MD, FACS Unavailable Unavailable Subramanian Jones, Alejandro Crawley MD, FACS Unavailable Unavailable Subramanian Jones, Alejandro Crawley MD, FACS Unavailable Unavailable Subramanian Jones, Alejandro Crawley MD, FACS Unavailable Unavailable Subramanian Jones, Alejandro Crawley MD, FACS Unavailable Unavailable Subramanian Jones, Alejandro Crawley MD, FACS Unavailable Unavailable Subramanian Jones, Alejandro Crawley MD, FACS Unavailable Unavailable Subramanian Jones, Alejandro Crawley MD, FACS Unavailable Unavailable Subramanian Jones, Alejandro Crawley MD, FACS Unavailable Unavailable Subramanian Jones, Alejandro Crawley MD, FACS Unavailable Unavailable Subramanian Jones, Alejandro Crawley MD, FACS Unavailable Unavailable Subramanian Jones, Alejandro Crawley MD, FACS Unavailable Unavailable Subramanian Jones, Alejandro Crawley MD, FACS Unavailable Unavailable Subramanian Jones, Alejandro Crawley MD, FACS Unavailable Unavailable Subramanian Jones, Alejandro Crawley MD, FACS Unavailable Unavailable Subramanian Jones, Alejandro Crawley MD, FACS Unavailable Unavailable Subramanian Jones, Alejandro Crawley MD, FACS Unavailable Unavailable Subramanian Jones, Alejandro Crawley MD, FACS Unavailable Unavailable Subramanian Jones, Alejandro Crawley MD, FACS Unavailable Unavailable Subramanian Jones, Alejandro Crawley MD, FACS Unavailable Unavailable Subramanian Jones, Alejandro Crawley MD, FACS Unavailable Unavailable ANABEL, 0000{ Unavailable Unavailable Re-disclosure Warning The records that you are about to access may contain information from federally-assisted alcohol or drug abuse programs. If such information is present, then the following federally mandated warning applies: This information has been disclosed to you from records protected by federal confidentiality rules (42 CFR part 2). The federal rules prohibit you from making any further disclosure of this information unless further disclosure is expressly permitted by the written consent of the person to whom it pertains or as otherwise permitted by 42 CFR part 2. A general authorization for the release of medical or other information is NOT sufficient for this purpose. The Federal rules restrict any use of the information to criminally investigate or prosecute any alcohol or drug abuse patient.The records that you are about to access may contain highly sensitive health information, the redisclosure of which is protected by Article 27-F of the [facility] Public Health law. If you continue you may have access to information: Regarding HIV / AIDS; Provided by facilities licensed or operated by the [facility] Office of Mental Health; or Provided by the [facility] Office for People With Developmental Disabilities. If such information is present, then the following [facility] mandated warning applies: This information has been disclosed to you from confidential records which are protected by state law. State law prohibits you from making any further disclosure of this information without the specific written consent of the person to whom it pertains, or as otherwise permitted by law. Any unauthorized further disclosure in violation of state law may result in a fine or alf sentence or both. A general authorization for the release of medical or other information is NOT sufficient authorization for further disc losure. Allergies and Adverse Reactions Type Description Substance Reaction Status Data Source(s ) Allergy to substance No Known Allergies No known allergies (situation ) [facility] (Misbah Jones MD [facility]) Allergy to substance No Known Allergies No known allergies (situation ) [facility] (Misbah Jones MD [facility]) Allergy to substance No Known Allergies No known allergies (situation ) [facility] (Misbah Jones MD [facility]) Family History Family Member Name Family Member Gender Family Member Status Date o f Status Description Data Source(s) Unknown Unknown Problem [facility] ([facility], ) Unknown Female Problem [facility] ([facility], [facility]) Encounters Encounter Providers Location Date Indications Data Source(s ) [place] [address] [facility] [facility] [address] 01/28/2021 12:00:00 AM EDT eCW1 (Critical access hospital) Outpatient Attender: Anshul HESS 01/28/20 07:25:04 AM EDT - 01/27/2021 08:21:42 AM EDT [facility] ([facility] ) [place] [address] [facility] [facility] [address] 01/27/2021 12:00:00 AM EDT eCW1 (Critical access hospital) Outpatient Attender: 0000{ ANABEL 12/30/2020 09:00:00 AM E DT [facility] Outpatient Attender: AMALIA ALVAREZ 12/30/2020 09:00:00 AM EDT RIGHT BREAST ULTRASOUND - RIGHT AXILLARY LYMPH NODE UNDER AR [facility] RIGHT BREAST ULTRASOUND - RIGHT AXILLARY LYMPH NODE UNDER AR Unknown [address] [facility] [facility] [address] 12/30/2020 12:00:00 AM EDT eCW1 (Critical access hospital) [place] [address] [address] 12/06/2020 12:00:00 AM EDT eCW1 (Critical access hospital) Outpatient Attender: 0000{ ANABEL 11/22/2020 08:28:00 AM E DT [facility] Outpatient Attender: AMALIA ALVAREZ 11/22/2020 08:28:00 AM EDT BILATERAL AXILLARY LYMPH NODE [facility] BILATERAL AXILLARY LYMPH NODE Unknown [address] [facility] [address] 11/18/2020 12:00:00 AM EDT eCW1 (Critical access hospital) [place] [address] [facility] [facility] [address] 11/11/2020 12:00:00 AM EDT eCW1 (Critical access hospital) Outpatient Attender: Lissy WASHINGTON 11/10/2020 12:59:00 PM E DT [facility] Outpatient Attender: AMALIA ALVAREZ 11/10/2020 12:59:00 PM EDT ANNUAL BREAST EXAM/ OTHER PRIMARY OVARIAN FAILURE [facility] ANNUAL BREAST EXAM/ OTHER PRIMARY OVARIA N FAILURE <td ID="encounterTypeDescriptionID0">1 Y ear Follow-Up</td><td>Misbah Jones MD, FACS</td><td>Misbah Quinonez MD [facility]</td><td>09/08/2020</td><td>8:17AM</td><td>9:03AM</td><td><content ID="encounterDiagnosisID0-0">Corneal Dystrophy Endothelial Fuchs'</content>, <content ID="encounterDiagnosisID0-1">Dry Eye Syndrome Both Eyes</content>, <content ID="encounterDiagnosisID0-2">Vitreous Disorders Degeneration</content></td>Outpatient Attender: Misbah Jones MD, FACS Misbah Quinonez MD [facility] 09/08/2020 08:17:00 AM EDT - 09/08/2020 09:03:00 AM ED T Vitreous Disorders DegenerationVitreous Disorders DegenerationVitreous Disorders DegenerationDry Eye Syndrome Both EyesCorneal Dystrophy Endothelial Fuchs'Dry Eye Syndrome Both EyesCorneal Dystrophy Endothelial Fuchs'Dry Eye Syndrome Both EyesCorneal Dystrophy Endothelial Fuchs' [facility] (Misbah Jones MD [facility]) 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 Fuchs' Outpatient [address] [facility] [address] 07/15/2020 12:00:00 AM EDT eCW1 (Critical access hospital) [place] [address] [facility] [facility] [address] 04/21/2020 12:00:00 AM EST eCW1 (Critical access hospital) <td ID="encounterTypeDescriptionID1">Dil ated Fundal Exam</td><td>Misbah Jones MD, FACS</td><td>Misbah Quinonez MD [facility]</td><td>03/05/2020</td><td>12:17PM</td><td>12:47PM</td><td><content ID="encounterDiagnosisID1-0">Posterior Vitreous Detachment</content></td>Outpatient Attender: Misbah Jones MD, LARA Quinonez MD [facility] 03/05/2020 12:17:00 PM EST - 03/05/2020 12:47:00 PM ES T Posterior Vitreous DetachmentPosterior Vitreous DetachmentPosterior Vitreous Detachment [facility] (Misbah Jones MD [facility]) Posterior Vitreous Detachment Posterior Vitreous Detachment Posterior Vitreous Detachment Outpatient Attender: Gustavo HESS Physical Therapy 08:45:00 AM EST [facility] ([facility] ) <td ID="encounterTypeDescriptionID2">TRI AGE NON URGENT</td><td>Misbah Jones MD, FACS</td><td>Misbah Quinonez MD [facility]</td><td>02/03/2020</td><td>1:03PM</td><td>2:16PM</td><td><content ID="encounterDiagnosisID2-0">Posterior Vitreous Detachment</content></td>Outpatient Attender: Misbah Jones MD, LARA Quinonez MD [facility] 02/03/2020 01:03:00 PM EDT - 02/03/2020 02:16:00 PM ED T Posterior Vitreous DetachmentPosterior Vitreous DetachmentPosterior Vitreous Detachment [facility] (Misbah Jones MD [facility]) Posterior Vitreous Detachment Posterior Vitreous Detachment Posterior Vitreous Detachment Outpatient Attender: Gustavo HESS Physical Therapy 09:45:00 AM EDT [facility] ([facility]) Outpatient [address] [facility] [address] 01/23/2020 12:00:00 AM EDT eCW1 (Critical access hospital) Outpatient Attender: Gustavo HESS Physical Therapy 09:30:00 AM EDT [facility] ([facility]) Medications Medication Brand Name Start Date Product Form Dose Route Admi nistrative Instructions Pharmacy Instructions Status Indications Reaction Description Data Source(s) Ganciclovir 0.0015 MG/MG Ophthalmic Gel [Zirgan] Zirgan 0.15 % Zirgan 0.15 % 01/28/2021 12:00:00 AM EDT active Zirgan 0.15 % eCW1 ([facility]) 0.15 % 01/28/2021 12:00:00 AM EDT gel 5 APPLY TO AFFECTED LOWER EYELID FIVE TIMES A DAY APPLY TO AFFECTED LOWER EYELID FIVE TIMES A DAY SOLD: 01/28/2021 [facility] Polyethylene Glycol - Polyethylene Glycol - 01/28/2021 12:00:00 AM EDT active Polyethylene Glycol - eCW1 ( [facility]) valacyclovir 1000 MG Oral Tablet [Valtrex] Valtrex 1 GM Valt fredi 1 GM 01/28/2021 12:00:00 AM EDT 1.0 {tablet} active Va ltrex 1 GM eCW1 ([facility]) Alendronic acid 70 MG Oral Tablet Alendronate Sodium 7 0 MG Alendronate Sodium 70 MG 12/06/2020 12:00:00 AM EDT active Alendronate Sodium 70 MG eCW1 ([facility]) Alendronic acid 70 MG Oral Tablet Alendronate Sodium 7 0 MG Alendronate Sodium 70 MG 12/06/2020 12:00:00 AM EDT active Alendronate Sodium 70 MG eCW1 ([facility]) Alendronic acid 70 MG Oral Tablet Alendronate Sodium 7 0 MG Alendronate Sodium 70 MG 12/06/2020 12:00:00 AM EDT active Alendronate Sodium 70 MG eCW1 ([facility]) Esomeprazole 40 MG Delayed Release Oral Capsule Esomep razole Magnesium 40 MG Esomeprazole Magnesium 40 MG 04/21/2020 12:00:00 AM EST 1.0 {capsule} active Esomeprazole Magnesium 40 MG eCW 1 ([facility]) No Active Medications 01/07/2020 12:00:00 AM EDT completed [facility] ([facility]) Insurance Providers Payer name Policy type / Coverage type Policy ID Covered libertarian ID Covered libertarian's relationship to lilly Policy Lilly Plan Information EXCELLUS C [id number] Self [id number] [facility] Medicare Medicare Part B [id number] Self [id number] Excellus Blue Cross and Blue Shield - [place] Blue Cross/B lue Shield [id number] Self [id number] EXCELLUS BLUE CROSS BLUE SHIELD HEA [id number] S [id number] BCBS of [facility] Other 0 [id number] Se lf 0 EXCELLUS BCBS B [id number] S [id number] MEDICARE BLUE PPO 306 [id number] SP [id number] MEDICARE C [id number] S [id number] MEDICARE BLUE PPO 306 [id number] SP [id number] [facility] Other 0 [id number] Se lf 0 MEDICARE [id number] SP [id number] [facility] of [facility] Other 0 [id number] Se lf 0 BCBS of [facility] Other 0 [id number] Se lf 0 BCBS [place] PPO 302/307 [id number] SP [id number] BCBS [place] PPO 302/307 [id number] SP [id number] EXCELLUS BCBS B [id number] S [id number] BCBS [place] PPO 302/307 [id number] SP [id number] BCBS [id number] Blue Cross/Bl ue Shield [id number] Excellus BCBS Health Maintenance Organization (HMO) [id number] 05 [id number] Self [id number] [facility] BLUE CROSS BLUE SHIELD PEDRITO [id number] S [id number] ANSI-Commercial [id number] ANSI-Commercial [id number] ANSI-Commercial [id number] ANSI-Commercial [id number] BS Exchange (Epo,Hmo,Ppo) Commercial [id number] Self [id number] BS Exchange (Epo,Hmo,Ppo) Commercial [id number] Self [id number] BCBS/Blue Card Commercial [id number] Self [id number] BCBS/Blue Card Commercial [id number] Self [id number] [facility] BCBS Health Maintenance Organization (HMO) [id number] Self [id number] BCBS/Blue Card Commercial [id number] Self BS Exchange (Epo,Hmo,Ppo) Commercial [id number] Self BCBS [place] PPO 302/307 [id number] SP [id number] EXCELLUS BCBS B [id number] S [id number] EXCELLUS BC-BS PPO 306 [id number] SP [id number] MEDICARE BLUE PPO 306 [id number] SP [id number] BCBS of [facility] [place] Other 0 [id number] Se lf 0 BCBS of [facility] [place] Other 0 [id number] Se lf 0 Problems, Conditions, and Diagnoses Code Display Name Description Problem Type Effective Dates Data Source(s) B02.9 Herpes zoster Herpes zoster Problem 01/28/2021 12:00:00 AM EDT eCW1 ([facility]) K59.09 [id number] Constipation, chronic Problem 01/28/2021 12: 00:00 AM EDT eCW1 ([facility]) R92.8 [id number] Abnormality of right breast on screening mammogram Problem 12/30/2020 12:00:00 AM EDT eCW1 ([facility]) M81.0 [id number] Age-related osteoporosis without current pathological fracture Problem 12/06/2020 12:00:00 AM EDT eCW1 ([facility]) E28.39 [id number] Estrogen deficiency Problem 07/15/2020 12:00 :00 AM EDT eCW1 ([facility]) 379.21 Posterior Vitreous Detachment Posterior Vitreous Detac hment Problem 02/03/2020 12:00:00 AM EDT [facility] (Misbah Jones MD [facility]) 379.21 Posterior Vitreous Detachment Posterior Vitreous Detac hment Problem 02/03/2020 12:00:00 AM EDT [facility] (Misbah Jones MD [facility]) 379.21 Posterior Vitreous Detachment Posterior Vitreous Detac hment Problem 02/03/2020 12:00:00 AM EDT [facility] (Misbah Jones MD [facility]) B02.29 [id number] Post herpetic neuralgia Problem 01/23/2020 1 2:00:00 AM EDT eCW1 ([facility]) G56.03 [id number] Bilateral carpal tunnel syndrome Problem 01/23/2020 12:00:00 AM EDT eCW1 ([facility]) Surgeries/Procedures Procedure Description Date Indications Data Source(s) Intermediate Eye Exam Established Patient Intermediate Eye Exam Established Patient 09/08/2020 12:00:00 AM EDT [facility] (Juventino Jones MD [facility]) Intermediate Eye Exam Established Patient Intermediate Eye Exam Established Patient 09/08/2020 12:00:00 AM EDT [facility] (Juventino Jones MD [facility]) Intermediate Eye Exam Established Patient Intermediate Eye Exam Established Patient 03/05/2020 12:00:00 AM EST [facility] (Juventino Jones MD [facility]) Intermediate Eye Exam Established Patient Intermediate Eye Exam Established Patient 02/03/2020 12:00:00 AM EDT [facility] (Juventino Jones MD [facility]) RADEX SPINE CRV COMPL W/OBLQ&FLEX&/XTN STDS 01/07/2020 12:00:00 AM EDT [facility] ([facility]) Results ID Date Data Source [id number] 01/27/2021 08:00:00 AM EDT [facility] Name Value Range Interpretation Code Description Data Roselyn rce(s) Supporting Document(s) SARS-CoV-2 RNA Resp Ql NISREEN+probe NOT DETECTED [facility] This lab was ordered by MAGALIE peña and reported by MAGALIE Simmons. ID Date Data Source [id number] 12/30/2020 11:58:00 AM EDT [facility] DATE OF EXAM: 1RIGHT BREAST ULT RASOUND, COMPLETE INDICATION: Short- term follow-up COMPARISON: Mammogram and bilateral breast ultrasound 11/10/2020 TECHNIQUE: High resolution real-time ultrasound scanning of the right breast was performed through the entire breast, retroareolar and axillary regions. FINDINGS: The right breast is normal. The prominent lymph node containing a focal area of cortical thickening is again identified, unchanged. Additional lymph nodes that are identified appear unremarkable. IMPRESSION: Stable appearance to a lymph node in the right axilla with a small focal area of cortical thickening. The patient may return to routine screening with follow-up bilateral mammograms in October 2021. BI-RADS 2 - BENIGN FINDINGS Professional interpretation performed at [facility] .End of diagnostic report for accession: [id number] Interpreted: Leonel Ivan MDTranscribed: 12/30/2020 11:53 AMSigned: 12/30/2020 11:58 AM Leonel Ivan MD [facility] ACC # [id number] BILL # [id number] [facility] Name Value Range Interpretation Code Description Data Roselyn rce(s) Supporting Document(s) ID Date Data Source [id number] 11/22/2020 09:36:00 AM EDT [facility] DATE OF EXAM: 11/22/2020ILATERAL BREAST ULTRASOUND, COMPLETE INDICATION: Bilateral axillary adenopathy COMPARISON: Screening mammograms dating back to 2017, outside mammogram 11/03/2014, 01/10/2013, 10/19/2010 TECHNIQUE: High resolution real-time ultrasound scanning of the right and left breast was performed through the entire breast, retroareolar and axillary regions. FINDINGS:There is a homogenous fibroglandular background echotexture. No sonographic abnormality within the right breast parenchyma. There is a prominent right axillary lymph node with focal cortical thickening measuring up to 0.6 cm. After further discussion with the patient, she states that she recently had a right-sided tonsillitis in September. She underwent antibiotic treatment and states that her tonsils are not improved, however not completely resolved. Within the left breast, 3:00, 6 cm from the nipple, there is a morphologically normal intramammary lymph node which measures 0.7 x 0.7 x 0.2 cm. There are morphologically normal left axillary lymph nodes. IMPRESSION:1. Prominent right axillary lymph node which may be reactive and related to the patient's recent tonsillitis. Management options were discussed with the tameka blandon. Recommend short-term follow-up with a right axillary ultrasound in 4-6 weeks to evaluate for resolution/improvement. If there is no improvement in one month, consider ultrasound-guided lymph node biopsy. These findings and recommendations were discussed with the patient at the conclusion of the examination. BI-RADS 3 - PROBABLY BENIGN - SHORT-INTERVAL FOLLOWUP SUGGESTED Professional interpretation performed at Dr[facility] Higinio [facility] .End of diagnostic report for accession: [id number] Interpreted: Klever Yost MDTranscribed: 11/22/2020 09:12 AMSigned: 11/22/2020 09:36 AM Klever Yost MD [facility] ACC # [id number] BILL # [id number] [facility] Name Value Range Interpretation Code Description Data Roselyn rce(s) Supporting Document(s) ID Date Data Source [id number] 11/12/2020 08:38:00 AM EDT [facility] DATE OF EXAM: 11/10/2020ILATERAL SCREEN ING TOMOSYNTHESIS 3D DIGITAL MAMMOGRAM WITH CAD COMPARISON: Mammograms dating back to 09/20/2017 LAST CLINICAL BREAST EXAM: July, YUE Breast Cancer Risk Evaluation (Tyrer-Cuzick Model v.8)This patient - Lifetime risk (to age 85): 13% Lifetime population risk (to age 85): 7% Probability BRCA 1: 0%Probability BRCA 2: 0% TECHNIQUE: Bilateral craniocaudal and medial lateral oblique 3D digital mammograms were performed using tomosynthesis and computer-aided detection. FINDINGS: There are scattered areas of fibroglandular density. No significant interval change in the fibroglandular tissue pattern. No primary or secondary signs of malignancy detected within the breasts bilaterally. There is bilateral increased axillary lymph node prominence. IMPRESSION: Bilateral increased axillary lymph node prominence with no interval change in the breast tissue bilaterally. Recommend clinical correlation with bilateral axillary ultrasound. BI-RADS - 0 - Incomp lete: Need additional imaging evaluation and/or prior mammograms for comparison. K1End of diagnostic report for accession: [id number] Interpreted: Tami Melara MDTranscribed: 11/10/2020 09:47 PMSigned: 11/12/2020 08:38 AM Tami Melara MD [facility] ACC # [id number] BILL # [id number] [place] Name Value Range Interpretation Code Description Data Roselyn rce(s) Supporting Document(s) ID Date Data Source [id number] 11/10/2020 03:59:00 PM EDT [facility] DATE OF EXAM: 11/10/2020EXA BONE DENSIT OMETRY INDICATION: E 28.39 estrogen deficiency COMPARISON: None TECHNIQUE: Quantitative assessment of bone mineral density was obtained with dual-energy x-ray technique with the Hologic scanner. Imaging was performed over the lumbar spine and hip. FINDINGS: Lumbar spine from L1 to L4: T score equals -2.7, Z score equals -0.9Left femoral neck: T score equals -1.5, Z score equals -0.1Left total hip: T score equals -0.9, Z score equals 0.5 By convention, the World Health Organization criteria for postmenopausal women and men older than 50 is as follows: Normal is T-score greater than or equal to -1.0Osteopenia is a T-score between -1.0 and - 2.5. Osteoporosis is a T-score less than or equal to -2.5. IMPRESSION: Osteoporosis in the lumbar spine Complete data sheets will be sent to the referring physician's education officer interpretation performed at [facility] .End of diagnostic report for accession: [id number] Interpreted: Misbah Richmond MDTranscribed: 11/10/2020 02:36 PMSigned: 11/10/2020 03:59 PM Misbah Richmond MD [facility] # [id number] BILL # [id number] [place] Name Value Range Interpretation Code Description Data Roselyn rce(s) Supporting Document(s) ID Date Data Source [id number] 01/15/2020 12:00:00 AM EDT [facility] Gustavo Forrester Pa-C Patient Name: ISAIAS BUTIRAGO[address] [facility] Date of : 1955 Date [facility] Exam: [facility] [address]LQ#: Fax: [phone] EXAM: MRI CERVICAL SPINE WITHOUT CONTRASTCLINICAL INFORMATION: Neck pain. Rule out disc herniation. The patientreports pain in the neck with numbness and tingling in both hands.COMPARISON: August 07, 2017TECHNIQUE:3T multiplanar MRI imaging of the cervical spine was obtained using varioussequences.MRI FINDINGS:There is straightening and slight reversal of the normal cervical lordosis. Cervical vertebral body heights are preserved. Cortical and medullarybone signal intensity are normal. The cervical cord is normal in course,caliber, and signal intensity on T1 and T2 weighted scans. No cordcompressive lesion is seen.There are degenerative spondylosis changes similar to the 08/07/2017 priorstudy.At C2-3, axial and sagittal images demonstrate minimal central discbulging. No spinal stenosis or foraminal narr owing is seen.At C3-4, there is degenerative loss of disc space signal intensity andminimal central disc bulging. There is mild facet hypertrophy. Noforaminal stenosis is seen.At C4-5, there is degenerative disc narrowing and central disc bulgingeffacing the ventral subarachnoid space. There is minimal uncovertebralspurring on the right but no significant foraminal stenosis.At C5- 6, there is narrowing of the disc with anterior osteophyte formationand some posterior osteophytic ridging. Bilateral uncovertebral spurringis seen at C5-6 and there is mild bilateral neural foraminal narrowing.These changes are stable from the 2018 prior study.At C6-7, there is posterior osteophytic ridging associated withdegenerative disc narrowing and diffuse disc bulging. No cord compressionis seen. Bilateral uncovertebral spurring is seen, mild in degree. Thisis unchanged. There is a small hemangioma in the inferior aspect of the Z9chokwtevd body, unchanged.At C7-T1, there is mild central disc bulging. This is a new findingcompared with 2018 study. Mild diffuse disc bulging is seen at T2-3 at thebottom of the [id number]-rz-cgyt.IMPRESSION:Degenerative spondylosis changes most pronounced at C5-6 where there isbilateral uncovertebral spurring. These changes are stable. There is newcentral disc bulging at C7-T1 compared to the prior study. Findingsotherwise unchanged. No cord compressive lesion seen.Accredited by the [employer] in [place].HERMELINDO Ford/Tanner you for referring ISAIAS BUITRAGO to our office. Electronically Signed - ANGEL GILBERT MD 01/16/20 13:57 Name Value Range Interpretation Code Description Data Roselyn rce(s) Supporting Document(s) Procedure Social History Code Duration Value Status Description Data Source(s ) Smoking 01/29/2021 12:00:00 AM EDT Never Smoker completed Never S moker eCW1 ([facility]) Smoking 01/23/2021 10:03:24 AM EDT Never smoked tobacco (findi ng) completed Never smoked tobacco (finding) [facility] (Misbah Jones MD [facility]) Smoking 01/15/2021 08:58:19 AM EDT Never smoked tobacco (findi ng) completed Never smoked tobacco (finding) [facility] (Misbah Jones MD [facility]) Smoking 12/06/2020 12:00:00 AM EDT Never Smoker completed Never S moker eCW1 ([facility]) Smoking 12/06/2020 12:00:00 AM EDT Never Smoker completed Never S moker eCW1 ([facility]) Smoking 12/06/2020 12:00:00 AM EDT Never Smoker completed Never S moker eCW1 ([facility]) Smoking 09/08/2020 09:05:32 AM EDT Never smoked tobacco (findi ng) completed Never smoked tobacco (finding) [facility] (Misbah Jones MD [facility]) Smoking 07/15/2020 12:00:00 AM EDT Never Smoker completed Never S moker eCW1 ([facility]) Smoking 07/15/2020 12:00:00 AM EDT Never Smoker completed Never S moker eCW1 ([facility]) Smoking 07/15/2020 12:00:00 AM EDT Never Smoker completed Never S moker eCW1 ([facility]) Smoking 01/23/2020 12:00:00 AM EDT Never Smoker completed Never S moker eCW1 ([facility]) Smoking 01/23/2020 12:00:00 AM EDT Never Smoker completed Never S moker eCW1 ([facility]) Smoking 01/23/2020 12:00:00 AM EDT Never Smoker completed Never S moker eCW1 ([facility]) Vital Signs ID Date Data Source UNK Name Value Range Interpretation Code Description Data Source(s) Body weight 144 [lb_av] 144 [lb_av] eCW1 ([facility]) Body weight 65.32 kg 65.32 kg eCW1 ([facility]) Body height 64.5 [in_i] 64.5 [in_i] eCW1 ([facility]) Body mass index (BMI) [Ratio] 24.33 kg/m2 24.33 kg/m2 eCW1 ([facility]) Heart rate 117 /min 117 /min eCW1 ([facility]) Respiratory rate 18 /min 18 /min eCW1 ([facility]) Body temperature 97.5 [degF] 97.5 [degF] eCW1 ( [facility]) Systolic blood pressure 140 mm[Hg] 140 mm[Hg] e CW1 ([facility]) Diastolic blood pressure 70 mm[Hg] 70 mm[Hg] eCW1 ([facility]) Body weight 69.85 kg 69.85 kg eCW1 ([facility]) Body weight 154 [lb_av] 154 [lb_av] eCW1 ([facility]) Body temperature 97.7 [degF] 97.7 [degF] eCW1 ( [facility]) Systolic blood pressure 124 mm[Hg] 124 mm[Hg] e CW1 ([facility]) Body height 64.5 [in_i] 64.5 [in_i] eCW1 ([facility]) Body mass index (BMI) [Ratio] 26.02 kg/m2 26.02 kg/m2 eCW1 ([facility]) Heart rate 108 /min 108 /min eCW1 ([facility]) Respiratory rate 18 /min 18 /min eCW1 ([facility]) Diastolic blood pressure 80 mm[Hg] 80 mm[Hg] eCW1 ([facility]) Body weight 153.4 [lb_av] 153.4 [lb_av] eCW1 ([facility]) Body height 64.5 [in_i] 64.5 [in_i] eCW1 ([facility]) Body mass index (BMI) [Ratio] 25.92 kg/m2 25.92 kg/m2 eCW1 ([facility]) Heart rate 81 /min 81 /min eCW1 ([facility]) Respiratory rate 20 /min 20 /min eCW1 ([facility]) Body temperature 97.7 [degF] 97.7 [degF] eCW1 ( [facility]) Systolic blood pressure 110 mm[Hg] 110 mm[Hg] e CW1 ([facility]) Diastolic blood pressure 70 mm[Hg] 70 mm[Hg] eCW1 ([facility]) Body temperature 97.1 [degF] 97.1 [degF] MEDENT ([facility] ) Body weight 153 [lb_av] 153 [lb_av] eCW1 ([facility]) Body height 64.5 [in_i] 64.5 [in_i] eCW1 ([facility]) Body mass index (BMI) [Ratio] 25.85 kg/m2 25.85 kg/m2 eCW1 ([facility]) Heart rate 97 /min 97 /min eCW1 ([facility]) Respiratory rate 20 /min 20 /min eCW1 ([facility]) Body temperature 97.6 [degF] 97.6 [degF] eCW1 ( [facility]) Systolic blood pressure 126 mm[Hg] 126 mm[Hg] e CW1 ([facility]) Diastolic blood pressure 70 mm[Hg] 70 mm[Hg] eCW1 ([facility]) Body temperature 97.4 [degF] 97.4 [degF] MEDENT ([facility]) Body height 63 [in_i] 63 [in_i] MEDENT ([facility]) 5'3" Body weight 154.00 [lb_av] 154.00 [lb_av] MEDEN T ([facility] ) Body mass index (BMI) [Ratio] 27.3 kg/m2 27.3 k g/m2 MEDENT ([facility]) Patient Treatment Plan of Care Planned Activity Planned Date Details Description Data Source (s) Polyethylene Glycol - 01/28/2021 12:00:00 AM EDT eCW1 ([facility]) Ganciclovir 0.0015 MG/MG Ophthalmic Gel [Zirgan] 01/28/2021 12:00:0 0 AM EDT eCW1 ([facility]) valacyclovir 1000 MG Oral Tablet [Valtrex] 01/28/2021 12:00:00 AM E DT eCW1 ([facility]) Alendronic acid 70 MG Oral Tablet 12/06/2020 12:00:00 AM EDT eCW1 ([facility]) Alendronic acid 70 MG Oral Tablet 12/06/2020 12:00:00 AM EDT eCW1 ([facility]) Alendronic acid 70 MG Oral Tablet 12/06/2020 12:00:00 AM EDT eCW1 ([facility]) Esomeprazole 40 MG Delayed Release Oral Capsule 04/21/2020 12:00:00 AM EST eCW1 ([facility])
--- OUTSIDE RECORDS SUMMARY | 2021-02-14 01:26 | CCD ---
Author Author [facility] Organization [facility] Address Unknown Phone Unavailable Care Team Providers Care Director Of Optimization Name Role Phone Cheikh Biggs Unavailable PROBLEMS Type Condition ICD9-CM Code [id number] Code Onset Dates Condition S tatus W/U Status Risk SNOMED Code Notes Problem IFG (impaired fasting glucose) R73.01 Active confir med 402161238 Problem Essential hypertension I10 Active confirmed 71925348 Problem Colon cancer screening Z12.11 Active confirmed 264171300 Problem Cervical cancer screening Z12.4 Active confirmed 993775525 Problem Breast cancer screening Z12.39 Active confirmed 664382191 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 638896 002 Problem Pure hypercholesterolemia E78.00 Active confirmed 376785576 Problem Autoimmune thyroiditis E06.3 Active confirmed 70346185 Problem Estrogen deficiency E28.39 Active confirmed 492246984 Problem Toxic effect of venom of oth er arthropod, accidental (unintentional), sequela T63.481S Active confirmed 062280781 Problem Age-related osteoporosis without current pathological fracture M81.0 Active confirmed 30125571 Problem Vitamin D deficiency E55.9 Active confirmed 95803526 Problem Gastroesophageal reflux disease, esophagitis pre sence not specified K21.9 Active confirmed 970634675 Problem Thoracic spondylosis M47.814 Active confirmed 519002452 Problem Bilateral carpal tunnel syndrome G56.03 Active conf irmed 35241550 Problem Post herpetic neuralgia B02.29 Active confirmed 3132505 ALLERGIES Allergen (clinical drug ingredient) Drug/Non Drug Allergy do cumented on EMR Reaction Allergy Type Onset Date Status bee stings fainting Non Drug Allergy Active ENCOUNTERS from 1955 to 2020-12-07 Encounter [facility] Date [facility] [address] [phone] [place] [address] Nov, Cheikh Biggs IFG (impaired fasting glucos e) R73.01 ; Age-related osteoporosis without current pathological fracture M81.0 ; Autoimmune thyroiditis E06.3 ; 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 ; Bilateral carpal tunnel syndrome G56.03 ; Breast cancer screening Z12.39 ; Post herpetic neuralgia B02.29 ; Thoracic spondylosis M47.814 ; Gastroesophageal reflux disease, esophagitis presence not specified K21.9 ; Rash R21 ; Essential hypertension I10 ; Toxic effect of venom of other arthropod, accidental (unintentional), sequela T63.481S ; Colon cancer screening Z12.11 ; Cervical cancer screening Z12.4 ; Vitamin D deficiency E55.9 and Pure hypercholesterolemia E78.00 IMMUNIZATIONS No Information SOCIAL HISTORY Tobacco Use: Social History Observation Description Date Details (start date - stop date) Never Smoker Sex Assigned At : Social History Observation Description Sex Assigned At Unknown Education: Question Answer Notes Level of Education: College Language: Question Answer Notes Languages spoken: Cymraes Baptist: Question Answer Notes Baptist 14 Gnosticist Sexual Hx: Question Answer Notes Had sex [...] FOR REFERRAL No Information VITAL SIGNS Weight 154 lbs Nov, Weight-kg 69.85 kg Nov, Height 64.5 in Nov, BMI 26.02 kg/m2 Nov, Heart Rate 108 /min Nov, Respiratory Rate 18 /min Nov, Temperature 97.7 degrees Fahrenheit Nov, Oximetry 98% Nov, Blood pressure systolic 124 mm Hg Nov, Blood pressure diastolic 80 mm Hg Nov, MEDICATIONS Medication SIG (Take, Route, Frequency, Duration) [...] Information RESULTS No Results REASON FOR VISIT 5 months MEDICAL (GENERAL) HISTORY Type Description Date Medical History GERD-07/03/19 UGI c MIK to above [place] Medical History C diff colitis (03/2018 2 ab x to rx H pylori Ab) resolved c vanco 14D Medical History generalized MP rash, favor EM, 08/2018 Medical History hypertension, essential Medical History ho cecal volvulus sp repair 10/2018-Jose Medical History IFG Medical History ho paraganglionoma excised -[place] (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 Valencia (favored idiopathic rxn of lip swelling to Augmentin 11/2016 given - amox challenge) Medical History AITD-12/2018 TPO 1132, TG 24 Medical History 04/2019 L V1 advent zoster, 10/2019 R V1 z reddy Medical History endometrial polyp c inactive endometrium by 03/13/19 DC Michael done 2 thickened endomterium by pelvic US Medical History cervical spondylosis-01/03/20 MRI NR mild C56 NFN, new C71 HNP otherwise similar to 08/07/17 Medical History B CTS Medical History osteoporosis Surgical History C section 1992 Surgical History lap Appendectomy 11/2015 Surgical History [id number] 02/2013 Surgical History Removal of Paragangloma-[facility] 05/20 Surgical History laproscopic volvulus repair-Dr. Lassiter 11/08 Surgical History D&C 02/2019 Surgical History Hysteroscopy 02/2019 Goals Section No Information Health Concerns No Information MEDICAL EQUIPMENT No Information MENTAL STATUS No Information FUNCTIONAL STATUS No Information ASSESSMENTS Encounter Date Diagnosis Assessment Notes Treatment Notes Treatm ent Clinical Notes Nov, IFG (impaired fasting glucose) (ICD-10 - R73.01) FBGs high 90s no DM in 1DR 11/03/20 5.6 (96, 6) 04/07/20 5.6 (91, 5) 10/01/19 (102/12) 12/2018 A1C 5.6, c YOLI-IR 1.3 (91, 6) Nov, Age-related osteoporosis wit hout current pathological fracture (ICD-10 - M81.0) no personel nor FH porosis/fx 11/10/20 baseline DXA ([facility]) L fem neck -1.5/total hip -0.9/-2.7; ergo, + WBE and alison 70 q7D Nov, Autoimmune thyroiditis (ICD-10 - E06.3) no ho hypo/hyperthyroid nor FH thyroid dis 11/03/20 2.1, 1.2 04/07/20 2.3, 1.2, TPO 187 (0-34) 10/01/19 1.7, 0.9 02/2019 TPO Ab 1114, 1.0, 0.9 12/2018 TPO 1132/TG 24 10/14/[address] Valencia for "rash" knapp -Jake/RF, TSH/TT4 1.6/5.8, but TPO 122, TG 4.2 (0-0.9) 06/2017 TSH/FT4 1.1/1.0 Nov, Paraganglioma (ICD-10 - D44.7) h/o excision [place] 05/2018 WB PET S-T using Ga-68 NETSOPT tracer s evidence of somatostatin rec uptake-[place] tc 24H urine cat/met given HTN (never was done before or p excision) 07/2015 - [facility] pargang/pheo panel (for MEN 2A, 2B) Nov, Bilateral carpal tunnel syndrome (ICD-10 - G56.0 3) Stable on home PT s CTS 12/2019 improved c PT at [facility] Nov, Breast cancer screening (ICD-10 - Z12.39) 11/22/20 B breast US: prominent R axillary LN c focal cortical thickening (favor 09/2020 4W recurrent pharyngitis rxed c amox by her dentist); planned 12/29/20 US R axillary US 11/10/20 B C0 mammo [address] prominence (but no change of breast tissue) 10/2019 B C1 mammogram ([place]) Nov, Post herpetic neuralgia (ICD-10 - B02.29) favor Shingrix 04/2020 L V1 mild zoster rxed c valcyc 7D (no ocular involvement per Jones) c hyperesthesia 04/2019 R V1 moderate zoster Nov, Thoracic spondylosis (ICD-10 - M47.814) R>>L c radicular pain to lower abd-worse c painting/twist (initially px felt 2 adhesions 2 volvulus surgery) Contingency: PT, MRI Nov, Gastroesophageal reflux dise ase, esophagitis presence not specified (ICD-10 - K21.9) Stable off meds no previous EGD 06/30/19 + esomep 40 qAM x 6W given recurrent MIK (mainly pre prand) s red flag sx and checked UGI c MIK to [place] c resolved sx; therefore, stopped 02/2018 panto 40 did NOT help in AM previous H pylori rx which probably caused C diff Nov, Rash (ICD-10 - R21) No recurrent rash DDx: EM, ? resolving thyroiditis, ? HSV, subclinical viral infection Contingency: HSV titer, bx if recurs 10/14/[address] Annie Elliott/RF, TSH/TT4 1.6/5.8, but TPO 122, TG 4.2 (0-0.9) 09/04/18 sudden onset targetoid lesions on B feet, quickly spreading entire body, ? throat-swelling s dyspnea while in [place]; at clinic there given dexamethasone IM in clinic and pred 7D taper and TA cr BID c complete resolution in ~3W. No concomitant nor precedent constituitonal sx Nov, Essential hypertension (ICD-10 - I10) Stable on behavorial rx 11/03/20 15/0.7, 4.0 08/01/17 24H Holter HR 46-137, mean 75 Nov, Toxic effect of venom of oth er arthropod, accidental (unintentional), sequela (ICD-10 - T63.481S) Continue Epi-Pen prn Nov, Colon cancer screening (ICD-10 - Z12.11) repeat colon 02/2023-W Nov, Cervical cancer screening (ICD-10 - Z12.4) 07/2018 NILM, -HPV Nov, Vitamin D deficiency (ICD-10 - E55.9) 11/03/20 57, 9.1, 19 on CC 1200, D3 400 10/01/19 36, 8.7, 46 02/2019 48, 9.4 12/2018 vitamin D 39, 9.2, 35 on D3 400 Nov, Pure hypercholesterolemia (ICD-10 - E78.00) Continue dietary [...] meals Orally Once a day Treatment Notes Assessment Notes Clinical Notes Cervical cancer screening 07/2018 NILM, - HPV IFG (impaired fasting glucose) FBGs high 90sno DM in 1DR11/03/20 5.6 (96, 6)04/07/20 5.6 (91, 5)10/01/19 (102/12)12/2018 A1C 5.6, c YOLI-IR 1.3 (91, 6) Colon cancer screening repeat colon 02/22 023-W Age-related osteoporosis without current pathological fractu re no personel nor FH porosis/fx11/10/20 baseline DXA ([place]) L fem neck -1.5/total hip -0.9/-2.7; ergo, + WBE and alison 70 q7D Pure hypercholesterolemia Continue dieta ry control11/03/20 124/57/51, CRP 3 (0- 10)10/01/19 106/61/78/2018 lipids 111/56/59TSH as per AITD Autoimmune thyroiditis no ho hypo/hypert hyroid nor FH thyroid dis11/03/20 2.1, 1.212/ 2.3, 1.2, TPO 187 (0-34)10/01/19 1.7, 0.911/2018 TPO Ab 1114, 1.0, 0. TPO 1132/TG 246/ BW by Dr. Valencia for "rash" knapp -Jake/RF, TSH/TT4 1.6/5.8, but TPO 122, TG 4.2 (0-0.9)06/2017 TSH/FT4 1.1/1.0 Vitamin D deficiency 11/03/20 57, 9.1, 19 on CC 1200, D3 36, 8.7, 4611 48, 9. vitamin D 39, 9.2, 35 on D3 400 Paraganglioma h/o excision [facility]/ 019 WB PET S-T using Ga-68 NETSOPT tracer s evidence of somatostatin rec uptake-[facility] 24H urine cat/met given HTN (never was done before or p excision)07/2015 - [facility] pargang/pheo panel (for MEN 2A, 2B) Bilateral carpal tunnel syndrome Stable on home PT s CTS12/2019 improved c PT at [facility] Breast cancer screening 11/22/20 B breast US: [...] Jones) c hyperesthesia04/2019 R V1 moderate zoster Toxic effect of venom of other arthropod, accidental (uninte ntional), sequela Continue Epi-Pen prn Essential hypertension Stable on behavor ial rx11/03/20 15/0.7, 4.04 24H Holter HR 46-137, mean 75 Thoracic spondylosis R>>L c radicular pa in to lower abd-worse c painting/twist (initially px felt 2 adhesions 2 volvulus surgery)Contingency: PT, MRI Gastroesophageal reflux disease, esophagitis presence not sp ecified Stable off medsno previous EGD3/01/10 + esomep 40 qAM x 6W given recurrent MIK (mainly pre prand) s red flag sx and checked UGI c MIK to [place] c resolved sx; therefore, xufdiip38/2018 panto 40 did NOT help in AMprevious H pylori rx which probably caused C diff Rash No recurrent rashDDx : EM, ? resolving thyroiditis, ? HSV, subclinical viral infectionContingency: HSV titer, bx if recurs10/14/[address] Annie Elliott/RF, TSH/TT4 1.6/5.8, but TPO 122, TG 4.2 (0-0.9)09/04/18 sudden onset targetoid lesions on B feet, quickly spreading entire body, ? throat-swelling s dyspnea while in [place]; at clinic there given dexamethasone IM in clinic and pred 7D taper and TA cr BID c complete resolution in ~3W. No concomitant nor precedent constituitonal sx Future Test Test Name Order Date VITAMIN D 25-HYDROXY [id number] PTH INTACT [id number] t-Transglutaminase (tTG) IgA [id number] HEMOGLOBIN A1c [id number] INSULIN LEVEL [id number] Comprehensive Metabolic Profile (CMP) [id number] MICROALBUMIN RANDOM [id number] NT-PRO BNP [id number] FREE T4 & TSH PANEL [id number] THYROID PEROXIDASE ANTIBODY [id number] Next Appt Details 5M, BW 1W prior Reason: Provider Name:Cheikh Biggs, 2021-05-09 1 0:45:00 AM, [address], , [place], [address], Insurance Providers Payer Name Payer Address Payer Phone Insured Name Patient Relati onship to Insured Coverage Start Date Coverage End Date MEDICARE BLUE PPO [address] [facility] BLUE [address] [place] [id number] ISAIAS BUITRAGO self
--- OUTSIDE RECORDS SUMMARY | 2021-02-14 01:26 | CCD | Continuity of Care Document ---
Author Author Allyssa CLAIRE PA Organization Unknown Address [address] [place] [address] [place] [address] Phone [phone] Care Team Providers Care Cafeteria Table Attendant Name Role Phone Cehikh Biggs MD AUTM [phone] Problems Active Problems Provider Date Streptococcal sore [...] Available Encounters Description No Information Available Assessments Description No Information Available Plan of Treatment No Information Available Functional Status Description No Information Available Mental Status Description No Information Available Referrals Description No Information Available
[2021-02-14] MEDS ORDERED: EPINEPHrine INJ 1 MG/ML 1ML AMP IM STA (02:02)
[2021-02-14] MEDS ORDERED: diphenhydrAMINE 50MG/ML VIAL (J1200) IV ONE (02:05)
[2021-02-14] MEDS ORDERED: methylPREDNISolone 125MG 2ML VIAL IV ONE (02:05)
[2021-02-14] MEDS ORDERED: FAMOTIDINE INJ 20MG/2ML VIAL (S0028 PER 1) IVP ONE (02:05)
[2021-02-14] MEDS: IPRATROPIUM 0.5MG/ALBUTEROL 2.5MG INH SOL UD 3ML (DUONEB) NEB SCH (02:39)
[2021-02-14 03:44] LABS: ALBUMIN 3.3 GM/DL (3.2-5.2); ALT/SGPT 23 U/L (12-78); BILIRUBIN,DIRECT 0.1 MG/DL (0.0-0.2); BILIRUBIN,TOTAL 0.5 MG/DL (0.2-1.0); BLOOD UREA NITROGEN 12 MG/DL (7-18); CALCIUM LEVEL 8.4 MG/DL (8.8-10.2); CARBON DIOXIDE LEVEL 25 MEQ/L (21-32); CHLORIDE LEVEL 103 MEQ/L (98-107); CREATININE FOR GFR 0.73 MG/DL (0.55-1.30); GLOMERULAR FILTRATION RATE > 60.0 (>45); GLUCOSE, FASTING 114 MG/DL (70-100); POTASSIUM SERUM 3.7 MEQ/L (3.5-5.1); SODIUM LEVEL 137 MEQ/L (136-145); TOTAL PROTEIN 6.9 GM/DL (6.4-8.2)
--- OUTSIDE RECORDS SUMMARY | 2021-02-14 04:49 | CCD ---
Author Author [facility] Organization [facility] Address Unknown Phone Unavailable Care Team Providers Care School Age Lead Teacher Name Role Phone Maring, Anshul PA Unavailable [...] Unavailable Forrester, M Barratt PA Unavailable Unavailable Ofrrester, M Barratt PA Unavailable Unavailable Forrester, M [...] Jones, Alejandro Crawley MD, FACS Unavailable Unavailable Subrmaanian Jones, Alejandro Crawley MD, FACS Unavailable Unavailable [...] Jones, Alejandro Crawley MD, FACS Unavailable Unavailable PADMINI, 0000{ Unavailable Unavailable Re-disclosure Warning The records [...] is protected by Article 27-F of the [facility] Public Health law. If you continue you may have access to information: Regarding HIV / AIDS; Provided by facilities licensed or operated by the [facility] Office of Mental Health; or Provided by the [facility] Office for People With Developmental Disabilities. If such information is present, then the following [facility] mandated warning applies: This information has been [...] law may result in a fine or snf sentence or both. A general authorization for the release of medical or other information is NOT sufficient authorization for further disc losure. Allergies and Adverse Reactions Type Description Substance Reaction Status Data Source(s ) Allergy to substance No Known Allergies No known allergies (situation ) [facility] (Misbah Jones MD [facility]) Allergy to substance No Known Allergies No known allergies (situation ) [facility] (Misbah Jones MD [facility]) Allergy to substance No Known Allergies No known allergies (situation ) [facility] (Misbah Jones MD [facility]) Family History Family Member Name Family Member Gender Family Member Status Date o f Status Description Data Source(s) Unknown Unknown Problem MEDENT ([facility], ) Unknown Female Problem MEDENT ([facility], [facility]) Encounters Encounter Providers Location Date Indications Data Source(s ) [place] [address] [address] 01/28/2021 12:00:00 AM EDT eCW1 ([facility]) Outpatient Attender: Anshul HESS 01/28/20 07:25:04 AM EDT - 01/27/2021 08:21:42 AM EDT [facility]Tap ([facility] ) [place] [address] [address] 01/27/2021 12:00:00 AM EDT eCW1 ([facility]) Outpatient Attender: 0000{ PADMINI 12/30/2020 09:00:00 AM E DT [facility] Outpatient Attender: AMALIA ALVAREZ 12/30/2020 09:00:00 AM EDT RIGHT BREAST ULTRASOUND - RIGHT AXILLARY LYMPH NODE UNDER AR [facility] RIGHT BREAST ULTRASOUND - RIGHT AXILLARY LYMPH NODE UNDER AR [place] [address] [address] 12/30/2020 12:00:00 AM EDT eCW1 ([facility]) [place] [address] [address] 12/06/2020 12:00:00 AM EDT eCW1 ([facility]) Outpatient Attender: 0000{ PADMINI 11/22/2020 08:28:00 AM E DT [facility] Outpatient Attender: AMALIA ALVAREZ 11/22/2020 08:28:00 AM EDT BILATERAL AXILLARY LYMPH NODE [facility] BILATERAL AXILLARY LYMPH NODE [place] [address] [address] 11/18/2020 12:00:00 AM EDT eCW1 ([facility]) [place] [address] [address] 11/11/2020 12:00:00 AM EDT eCW1 ([facility]) Outpatient Attender: Lissy WASHINGTON 11/10/2020 12:59:00 PM E DT [facility] Outpatient Attender: AMALIA ALVAREZ 11/10/2020 12:59:00 PM EDT ANNUAL BREAST EXAM/ OTHER PRIMARY OVARIAN FAILURE [facility] ANNUAL BREAST EXAM/ OTHER PRIMARY OVARIA N FAILURE <td ID="encounterTypeDescriptionID0">1 Y ear Follow-Up</td><td>Misbah Jones MD, FACS</td><td>Misbah Quinonez MD [facility]</td><td>09/08/2020</td><td>8:17AM</td><td>9:03AM</td><td><content ID="encounterDiagnosisID0-0">Corneal Dystrophy Endothelial Fuchs'</content>, <content ID="encounterDiagnosisID0-1">Dry Eye Syndrome Both Eyes</content>, <content ID="encounterDiagnosisID0-2">Vitreous Disorders Degeneration</content></td>Outpatient Attender: Misbah Jones MD, FACS Misbah Quinonez MD [facility] 09/08/2020 08:17:00 AM EDT - 09/08/2020 09:03:00 AM ED T Vitreous Disorders DegenerationVitreous Disorders DegenerationVitreous Disorders DegenerationDry Eye Syndrome Both EyesCorneal Dystrophy Endothelial Fuchs'Dry Eye Syndrome Both EyesCorneal Dystrophy Endothelial Fuchs'Dry Eye Syndrome Both EyesCorneal Dystrophy Endothelial Fuchs' [facility] (Misbah Jones MD [facility]) 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 Fuchs' [place] [address] [address] 07/15/2020 12:00:00 AM EDT eCW1 ([facility]) Unknown [address] [address] 04/21/2020 12:00:00 AM EST eCW1 ([facility]) <td ID="encounterTypeDescriptionID1">Dil ated Fundal Exam</td><td>Misbah Jones MD, FACS</td><td>Misbah Quinonez MD [facility]</td><td>03/05/2020</td><td>12:17PM</td><td>12:47PM</td><td><content ID="encounterDiagnosisID1-0">Posterior Vitreous Detachment</content></td>Outpatient Attender: Misbah Jones MD, LARA Quinonez MD [facility] 03/05/2020 12:17:00 PM EST - 03/05/2020 12:47:00 PM ES T Posterior Vitreous DetachmentPosterior Vitreous DetachmentPosterior Vitreous Detachment [facility] (Misbah Jones MD [facility]) Posterior Vitreous Detachment Posterior Vitreous Detachment Posterior Vitreous Detachment Outpatient Attender: Gustavo HESS Physical Therapy 08:45:00 AM EST MEDENT ([facility]) Outpatient<td ID="encounterTypeDescripti onID2">TRIAGE NON URGENT</td><td>Misbah Quinonez MD, FACS</td><td>Misbah Quinonez MD [facility]</td><td>02/03/2020</td><td>1:03PM</td><td>2:16PM</td><td><content ID="encounterDiagnosisID2-0">Posterior Vitreous Detachment</content></td> Attender: Misbah Jones MD, LARA Quinonez MD [facility] 02/03/2020 01:03:0 0 PM EDT - 02/03/2020 02:16:00 PM EDT Posterior Vitreous DetachmentPosterior Vitreous DetachmentPosterior Vitreous Detachment [facility] (Misbah Jones MD [facility]) Posterior Vitreous Detachment Posterior Vitreous Detachment Posterior Vitreous Detachment Outpatient Attender: Gustavo HESS Physical Therapy 09:45:00 AM EDT MEDENT ([facility]) [place]patient [address] [address] 01/23/2020 12:00:00 AM EDT eCW1 ([facility]) Outpatient Attender: Gustavo HESS Physical Therapy 09:30:00 AM EDT MEDENT ([facility]) Medications Medication Brand Name Start Date Product Form Dose Route Admi nistrative Instructions Pharmacy Instructions Status Indications Reaction Description Data Source(s) Ganciclovir 0.0015 MG/MG Ophthalmic Gel [Zirgan] Zirgan 0.15 % Zirgan 0.15 % 01/28/2021 12:00:00 AM EDT active Zirgan 0.15 % eCW1 ([facility]) 0.15 % 01/28/2021 12:00:00 AM EDT gel 5 APPLY TO AFFECTED LOWER EYELID FIVE TIMES A DAY APPLY TO AFFECTED LOWER EYELID FIVE TIMES A DAY SOLD: 01/28/2021 [facility] Polyethylene Glycol - Polyethylene Glycol - 01/28/2021 12:00:00 AM EDT active Polyethylene Glycol - eCW1 ( [facility]) valacyclovir 1000 MG Oral Tablet [Valtrex] Valtrex 1 GM Valt fredi 1 GM 01/28/2021 12:00:00 AM EDT 1.0 {tablet} active Va ltrex 1 GM eCW1 ([facility]) Alendronic acid 70 MG Oral Tablet Alendronate Sodium 7 0 MG Alendronate Sodium 70 MG 12/06/2020 12:00:00 AM EDT active Alendronate Sodium 70 MG eCW1 ([facility]) Alendronic acid 70 MG Oral Tablet Alendronate Sodium 7 0 MG Alendronate Sodium 70 MG 12/06/2020 12:00:00 AM EDT active Alendronate Sodium 70 MG eCW1 ([facility]) Alendronic acid 70 MG Oral Tablet Alendronate Sodium 7 0 MG Alendronate Sodium 70 MG 12/06/2020 12:00:00 AM EDT active Alendronate Sodium 70 MG eCW1 ([facility]) Esomeprazole 40 MG Delayed Release Oral Capsule Esomep razole Magnesium 40 MG Esomeprazole Magnesium 40 MG 04/21/2020 12:00:00 AM EST 1.0 {capsule} active Esomeprazole Magnesium 40 MG eCW 1 ([facility]) No Active Medications 01/07/2020 12:00:00 AM EDT completed MEDENT ([facility]) Insurance Providers Payer name Policy type / Coverage type Policy ID Covered republican ID Covered republican's relationship to lilly Policy Lilly Plan Information EXCELLUS C [id number] Self [id number] [facility] Medicare Medicare Part B [id number] Self [id number] Excellus Blue Cross and Blue Shield - [place] Blue Cross/B lue Shield [id number] Self [id number] EXCELLUS BLUE CROSS BLUE SHIELD HEA [id number] S [id number] BCBS of [facility] Other 0 [id number] Se lf 0 EXCELLUS BCBS B [id number] S [id number] MEDICARE BLUE PPO 306 [id number] SP [id number] MEDICARE C [id number] S [id number] MEDICARE BLUE PPO 306 [id number] SP [id number] BCBS of [facility] Other 0 [id number] Se lf 0 MEDICARE [id number] SP [id number] BCBS of [facility] Other 0 [id number] Se lf 0 BCBS of [facility] Other 0 [id number] Se lf 0 BCBS [place] PPO [place]/307 [id number] SP [id number] BCBS [place] PPO 302/307 [id number] SP [id number] EXCELLUS BCBS B [id number] S [id number] BCBS [place] PPO 302/307 [id number] SP [id number] BCBS [id number] Blue Cross/Bl ue Shield [id number] Excellus BCBS Health Maintenance Organization (HMO) [id number] Self [id number] [facility] BLUE CROSS BLUE SHIELD Alejandro [id number] S [id number] ANSI-Commercial [id number] ANSI-Commercial [id number] ANSI-Commercial [id number] ANSI-Commercial [id number] BS Exchange (Epo,Hmo,Ppo) Commercial [id number] Self [id number] BS Exchange (Epo,Hmo,Ppo) Commercial [id number] Self [id number] BCBS/Blue Card Commercial [id number] Self [id number] BCBS/Blue Card Commercial [id number] Self [id number] [facility] BCBS Health Maintenance Organization (HMO) [id number] Self [id number] BCBS/Blue Card Commercial [id number] Self BS Exchange (Epo,Hmo,Ppo) Commercial [id number] Self BCBS [place] PPO 302/307 [id number] SP [id number] EXCELLUS BCBS B [id number] S [id number] EXCELLUS BC-BS PPO 306 [id number] SP [id number] MEDICARE BLUE PPO 306 [id number] SP [id number] BCBS of [facility] Other 0 [id number] Se lf 0 BCBS of [facility] Other 0 [id number] Se lf 0 Problems, Conditions, and Diagnoses Code Display Name Description Problem Type Effective Dates Data Source(s) B02.9 Herpes zoster Herpes zoster Problem 01/28/2021 12:00:00 AM EDT eCW1 ([facility]) K59.09 [id number] Constipation, chronic Problem 01/28/2021 12: 00:00 AM EDT eCW1 ([facility]) R92.8 [id number] Abnormality of right breast on screening mammogram Problem 12/30/2020 12:00:00 AM EDT eCW1 ([facility]) M81.0 [id number] Age-related osteoporosis without current pathological fracture Problem 12/06/2020 12:00:00 AM EDT eCW1 ([facility]) E28.39 [id number] Estrogen deficiency Problem 07/15/2020 12:00 :00 AM EDT eCW1 ([facility]) 379.21 Posterior Vitreous Detachment Posterior Vitreous Detac hment Problem 02/03/2020 12:00:00 AM EDT [facility] (Misbah Jones MD [facility]) 379.21 Posterior Vitreous Detachment Posterior Vitreous Detac hment Problem 02/03/2020 12:00:00 AM EDT [facility] (Misbah Jones MD [facility]) 379.21 Posterior Vitreous Detachment Posterior Vitreous Detac hment Problem 02/03/2020 12:00:00 AM EDT [facility] (Misbah Jones MD [facility]) B02.29 [id number] Post herpetic neuralgia Problem 01/23/2020 1 2:00:00 AM EDT eCW1 ([facility]) G56.03 [id number] Bilateral carpal tunnel syndrome Problem 01/23/2020 12:00:00 AM EDT eCW1 ([facility]) Surgeries/Procedures Procedure Description Date Indications Data Source(s) Intermediate Eye Exam Established Patient Intermediate Eye Exam Established Patient 09/08/2020 12:00:00 AM EDT [facility] (Juventino Jones MD [facility]) Intermediate Eye Exam Established Patient Intermediate Eye Exam Established Patient 09/08/2020 12:00:00 AM EDT [facility] (Juventino Jones MD [facility]) Intermediate Eye Exam Established Patient Intermediate Eye Exam Established Patient 03/05/2020 12:00:00 AM EST [facility] (Juventino Jones MD [facility]) Intermediate Eye Exam Established Patient Intermediate Eye Exam Established Patient 02/03/2020 12:00:00 AM EDT [facility] (Juventino Jones MD [facility]) RADEX SPINE CRV COMPL W/OBLQ&FLEX&/XTN STDS 01/07/2020 12:00:00 AM EDT MEDENT ([facility]) Results ID Date Data Source [id number] 01/27/2021 08:00:00 AM EDT [facility] Name Value Range Interpretation Code Description Data Roselyn rce(s) Supporting Document(s) SARS-CoV-2 RNA Resp Ql NISREEN+probe NOT DETECTED [facility] This lab was ordered by MAGALIE peña and reported by MAGALIE Simmons. ID Date Data Source [id number] 12/30/2020 11:58:00 AM EDT [facility] DATE OF EXAM: 1RIGHT BREAST [...] Dr[facility] Higinio [facility] .End of diagnostic report for accession: [id number] Interpreted: Leonel Ivan MDTranscribed: 12/30/2020 11:53 AMSigned: 12/30/2020 11:[address] [facility] ACC # [id number] BILL # [id number] [facility] Name Value Range Interpretation Code Description Data Roselyn rce(s) Supporting Document(s) ID Date Data Source [id number] 11/22/2020 09:36:00 AM EDT [facility] DATE OF EXAM: 11/22/2020ILATERAL BREAST ULTRASOUND, COMPLETE [...] interpretation performed at Dr. Higinio Sifuentes [facility] .End of diagnostic report for accession: [id number] Interpreted: Klever Yost MDTranscribed: 11/22/2020 09:12 AMSigned: 11/22/2020 09:36 [address] [facility] # [id number] BILL # [id number] [facility] Name Value Range Interpretation Code Description Data Roselyn rce(s) Supporting Document(s) ID Date Data Source [id number] 11/12/2020 08:38:00 AM EDT [facility] DATE OF EXAM: 11/10/2020ILATERAL SCREEN [...] comparison. K1End of diagnostic report for accession: [id number] Interpreted: Tami Melara MDTranscribed: 11/10/2020 09:47 PMSigned: 11/12/2020 08:[address] [facility] # [id number] BILL # [id number] [facility] Name Value Range Interpretation Code Description Data Roselyn rce(s) Supporting Document(s) ID Date Data Source [id number] 11/10/2020 03:59:00 PM EDT [facility] DATE OF EXAM: 11/10/2020EXA BONE DENSIT OMETRY [...] will be sent to the referring physician's medical office professional instructor interpretation performed at [facility] .End of diagnostic report for accession: [id number] Interpreted: Misbah Richmond MDTranscribed: 11/10/2020 02:36 PMSigned: 11/10/2020 03:59 PM Misbah Richmond MD [facility] # [id number] BILL # [id number] [facility] Name Value Range Interpretation Code Description Data Roselyn rce(s) Supporting Document(s) ID Date Data Source [id number] 01/15/2020 12:00:00 AM EDT [facility] Gustavo Forrester Pa-C Patient Name: ISAIAS BUITRAGO[address] [facility] Date of : 1955 Date of Exam: 01/15/2020[place], [place] [address]RO#: Fax: [phone] EXAM: MRI CERVICAL SPINE WITHOUT [...] hemangioma in the inferior aspect of the [id number] body, unchanged.At C7-T1, there is mild central disc bulging. This is a new findingcompared with 2018 study. Mild diffuse disc bulging is seen at T2-3 at thebottom of the enxcr-ll-woat.IMPRESSION:Degenerative spondylosis changes most pronounced at C5-6 where there isbilateral uncovertebral spurring. These changes are stable. There is newcentral disc bulging at C7-T1 compared to the prior study. Findingsotherwise unchanged. No cord compressive lesion seen.Accredited by the [employer] in [place].HERMELINDO Ford/Tanner you for referring ISAIAS BUITRAGO to our office. Electronically Signed - ANGEL GILBERT MD 01/16/20 13:57 Name Value Range Interpretation Code Description Data Roselyn rce(s) Supporting Document(s) Procedure Social History Code Duration Value Status Description Data Source(s ) Smoking 01/29/2021 12:00:00 AM EDT Never Smoker completed Never S moker eCW1 ([facility]) Smoking 01/23/2021 10:03:24 AM EDT Never smoked tobacco (findi ng) completed Never smoked tobacco (finding) [facility] (Misbah Jones MD [facility]) Smoking 01/15/2021 08:58:19 AM EDT Never smoked tobacco (findi ng) completed Never smoked tobacco (finding) [facility] (Misbah Jones MD [facility]) Smoking 12/06/2020 12:00:00 AM EDT Never Smoker completed Never S moker eCW1 ([facility]) Smoking 12/06/2020 12:00:00 AM EDT Never Smoker completed Never S moker eCW1 ([facility]) Smoking 12/06/2020 12:00:00 AM EDT Never Smoker completed Never S moker eCW1 ([facility]) Smoking 09/08/2020 09:05:32 AM EDT Never smoked tobacco (findi ng) completed Never smoked tobacco (finding) [facility] (Misbah Jones MD [facility]) Smoking 07/15/2020 12:00:00 AM EDT Never Smoker completed Never S moker eCW1 ([facility]) Smoking 07/15/2020 12:00:00 AM EDT Never Smoker completed Never S moker eCW1 ([facility]) Smoking 07/15/2020 12:00:00 AM EDT Never Smoker completed Never S moker eCW1 ([facility]) Smoking 01/23/2020 12:00:00 AM EDT Never Smoker completed Never S moker eCW1 ([facility]) Smoking 01/23/2020 12:00:00 AM EDT Never Smoker completed Never S moker eCW1 ([facility]) Smoking 01/23/2020 12:00:00 AM EDT Never Smoker completed Never S moker eCW1 ([facility]) Vital Signs ID Date Data Source UNK Name Value Range Interpretation Code Description Data Source(s) Body weight 144 [lb_av] 144 [lb_av] eCW1 ([facility]) Body weight 65.32 kg 65.32 kg eCW1 ([facility]) Body height 64.5 [in_i] 64.5 [in_i] eCW1 ([facility]) Body mass index (BMI) [Ratio] 24.33 kg/m2 24.33 kg/m2 eCW1 ([facility]) Heart rate 117 /min 117 /min eCW1 ([facility]) Respiratory rate 18 /min 18 /min eCW1 ([facility]) Body temperature 97.5 [degF] 97.5 [degF] eCW1 ( [facility]) Systolic blood pressure 140 mm[Hg] 140 mm[Hg] e CW1 ([facility]) Diastolic blood pressure 70 mm[Hg] 70 mm[Hg] eCW1 ([facility]) Body weight 154 [lb_av] 154 [lb_av] eCW1 ([facility]) Body temperature 97.7 [degF] 97.7 [degF] eCW1 ( [facility]) Body weight 69.85 kg 69.85 kg eCW1 ([facility]) Body height 64.5 [in_i] 64.5 [in_i] eCW1 ([facility]) Body mass index (BMI) [Ratio] 26.02 kg/m2 26.02 kg/m2 W1 ([facility]) Heart rate 108 /min 108 /min eCW1 ([facility]) Respiratory rate 18 /min 18 /min eCW1 ([facility]) Systolic blood pressure 124 mm[Hg] 124 mm[Hg] e CW1 ([facility]) Diastolic blood pressure 80 mm[Hg] 80 mm[Hg] eCW1 ([facility]) Body weight 153.4 [lb_av] 153.4 [lb_av] eCW1 ([facility]) Body height 64.5 [in_i] 64.5 [in_i] eCW1 ([facility]) Body mass index (BMI) [Ratio] 25.92 kg/m2 25.92 kg/m2 eCW1 ([facility]) Heart rate 81 /min 81 /min eCW1 ([facility]) Respiratory rate 20 /min 20 /min eCW1 ([facility]) Body temperature 97.7 [degF] 97.7 [degF] eCW1 ( [facility]) Systolic blood pressure 110 mm[Hg] 110 mm[Hg] e CW1 ([facility]) Diastolic blood pressure 70 mm[Hg] 70 mm[Hg] eCW1 ([facility]) Body temperature 97.1 [degF] 97.1 [degF] MEDENT ([facility] Body weight 153 [lb_av] 153 [lb_av] eCW1 ([facility]) Body height 64.5 [in_i] 64.5 [in_i] eCW1 ([facility]) Body mass index (BMI) [Ratio] 25.85 kg/m2 25.85 kg/m2 eCW1 ([facility]) Heart rate 97 /min 97 /min eCW1 ([facility]) Respiratory rate 20 /min 20 /min eCW1 ([facility]) Body temperature 97.6 [degF] 97.6 [degF] eCW1 ( [facility]) Systolic blood pressure 126 mm[Hg] 126 mm[Hg] e CW1 ([facility]) Diastolic blood pressure 70 mm[Hg] 70 mm[Hg] eCW1 ([facility]) Body temperature 97.4 [degF] 97.4 [degF] MEDENT ([facility]) Body height 63 [in_i] 63 [in_i] MEDENT ([facility]) 5'3" Body weight 154.00 [lb_av] 154.00 [lb_av] MEDEN T ([facility] Body mass index (BMI) [Ratio] 27.3 kg/m2 27.3 k g/m2 [facility] ([facility] Patient Treatment Plan of Care Planned Activity Planned Date Details Description Data Source (s) Polyethylene Glycol - 01/28/2021 12:00:00 AM EDT eCW1 ([facility]) Ganciclovir 0.0015 MG/MG Ophthalmic Gel [Zirgan] 01/28/2021 12:00:0 0 AM EDT eCW1 ([facility]) valacyclovir 1000 MG Oral Tablet [Valtrex] 01/28/2021 12:00:00 AM E DT eCW1 ([facility]) Alendronic acid 70 MG Oral Tablet 12/06/2020 12:00:00 AM EDT eCW1 ([facility]) Alendronic acid 70 MG Oral Tablet 12/06/2020 12:00:00 AM EDT eCW1 ([facility]) Alendronic acid 70 MG Oral Tablet 12/06/2020 12:00:00 AM EDT eCW1 ([facility]) Esomeprazole 40 MG Delayed Release Oral Capsule 04/21/2020 12:00:00 AM EST eCW1 ([facility])
[2021-02-14] MEDS ORDERED: PRED20TA PO (06:09)
[2021-02-14] MEDS ORDERED: EPIP0.3I2 IM (06:09)
[2021-02-14] MEDS ORDERED: FAMO40TA3 PO (06:09)
[2021-02-14] MEDS ORDERED: NS 1,000 ML IV SCH (08:05)
[2021-02-14] MEDS ORDERED: BAMLANIVIMAB 700 MG, ETESEVIMAB 1,400 MG in NS 250 ML IV ONE (08:05)
[2021-02-14] MEDS ORDERED: ACETAMINOPHEN TAB 650MG DOSE (2X325MG) PO PRN (08:05)
[2021-02-14] MEDS ORDERED: diphenhydrAMINE 50MG/ML VIAL (J1200) IV PRN (08:05)
[2021-02-14] MEDS ORDERED: ALBUTEROL SULFATE 2.5 MG/0.5 ML INH NEB SOLN INH PRN (08:05)
[2021-02-14] MEDS ORDERED: methylPREDNISolone 125MG 2ML VIAL IV PRN (08:05)
[2021-02-14] MEDS ORDERED: EPINEPHrine INJ 1 MG/ML 1ML AMP IM PRN (08:05)
[2021-02-14] MEDS ORDERED: ALBUTEROL 90 MCG/ACT 8GM HFA INHALER INH PRN (08:05)
[2021-02-14 08:45] VITALS: BP 128/72
== END 2021-02-14 09:15 | disposition home or self-care (01) ==
LOC: M ED 01:11
DX: R21 Rash and other nonspecific skin eruption (principal); T78.2XXA Anaphylactic shock, unspecified, initial encounter; X58.XXXA Exposure to other specified factors, initial encounter; Y92.89 Other specified places as the place of occurrence of the external cause; Z91.030 Bee allergy status
CPT/HCPCS: 80048; 80076; 93041; 94760; 96372; 96374; 96375; 99284; J0171; J1200; J2930

== ENCOUNTER → 2021-02-14 16:30 | Outpatient (CLI) | payer MEDICARE ==
[~2021-02-14] VITALS: Ht 160 cm; Wt 68.8 kg
--- NOTE | 2021-02-14 08:10 | IPNPDOC ---
Text Note Date of Service The patient was seen on 02/14/21. NOTE Patient 65 years old female without significant past medical history presented to hospital with generalized weakness. Patient was tested positive for COVID-19 on Sunday and she developed generalized weakness since Sunday. Physical exam pertinent for diminished lung sounds bilaterally. Patient signed consent for monoclonal antibody infusion TEODORA ODOM DO Feb 14, 2021 08:09
[2021-02-14 09:35] VITALS: BP 128/72
[2021-02-14 10:05] VITALS: BP 105/65
[2021-02-14 10:35] VITALS: BP 124/86
[2021-02-14 11:32] VITALS: BP 117/74
[~2021-02-14 16:30] MED LIST changes: +ACETAMINOPHEN TAB 650MG DOSE (2X325MG) PO PRN; +ALBUTEROL 90 MCG/ACT 8GM HFA INHALER INH PRN; +ALBUTEROL SULFATE 2.5 MG/0.5 ML INH NEB SOLN INH PRN; +BAMLANIVIMAB 700 MG, ETESEVIMAB 1,400 MG in NS 250 ML IV ONE; +EPINEPHrine INJ 1 MG/ML 1ML AMP IM PRN; +EPIP0.3I2 IM; +FAMO40TA3 PO; +NS 1,000 ML IV SCH; +PRED20TA PO; +ROBI1LIQ9 PO; +diphenhydrAMINE 50MG/ML VIAL (J1200) IV PRN; +methylPREDNISolone 125MG 2ML VIAL IV PRN
== END | disposition home or self-care (01) ==
LOC: M OPCLI4 16:30
PROVIDERS: ATTEND Internal Medicine
DX: U07.1 COVID-19 (principal); Z91.030 Bee allergy status

== ENCOUNTER → 2021-03-28 | Outpatient (CLI) | payer MEDICARE ==
[~2021-03-28] MED LIST changes: -ACETAMINOPHEN TAB 650MG DOSE (2X325MG) PO PRN; -ALBUTEROL 90 MCG/ACT 8GM HFA INHALER INH PRN; -ALBUTEROL SULFATE 2.5 MG/0.5 ML INH NEB SOLN INH PRN; -BAMLANIVIMAB 700 MG, ETESEVIMAB 1,400 MG in NS 250 ML IV ONE; -EPINEPHrine INJ 1 MG/ML 1ML AMP IM PRN; -NS 1,000 ML IV SCH; -diphenhydrAMINE 50MG/ML VIAL (J1200) IV PRN; -methylPREDNISolone 125MG 2ML VIAL IV PRN
[2021-03-28 13:07] LABS: BASO % 0.4 % (0.0-1.0); EOS # 0.1 10^3/uL (0.0-0.5); EOS % 0.8 % (0.0-3.0); HEMATOCRIT 45.3 % (36.0-47.0); HEMOGLOBIN 14.4 g/dl (12.0-15.5); LYMPH # 4.5 10^3/uL (1.5-5.0); LYMPH % 53.5 % (24.0-44.0); MEAN CORPUSCULAR HEMOGLOBIN 29.6 pg (27.0-33.0); MEAN CORPUSCULAR HGB CONC 31.8 g/dl (32.0-36.5); MONO # 0.7 10^3/uL (0.0-0.8); MONO % 7.9 % (2.0-8.0); NEUTROPHILS # 3.1 10^3/uL (1.5-8.5); NEUTROPHILS % 37.3 % (36.0-66.0); PLATELET COUNT, AUTOMATED 180 10^3/uL (150-450); RED BLOOD COUNT 4.87 10^6/uL (4.00-5.40); WHITE BLOOD COUNT 8.4 10^3/uL (4.0-10.0)
[2021-03-28 13:19] LABS: INR 0.97; PROTHROMBIN TIME 13.2 SECONDS (12.7-14.5)
[2021-03-28 13:20] LABS: PARTIAL THROMBOPLASTIN TIME 30.2 SECONDS (25.9-37.0)
[2021-03-28 14:10] LABS: ALBUMIN 3.7 GM/DL (3.2-5.2); ALT/SGPT 23 U/L (12-78); BILIRUBIN,TOTAL 0.5 MG/DL (0.2-1.0); BLOOD UREA NITROGEN 15 MG/DL (7-18); CALCIUM LEVEL 9.5 MG/DL (8.8-10.2); CARBON DIOXIDE LEVEL 28 MEQ/L (21-32); CHLORIDE LEVEL 110 MEQ/L (98-107); CREATININE FOR GFR 0.72 MG/DL (0.55-1.30); GLOMERULAR FILTRATION RATE > 60.0 (>45); GLUCOSE, FASTING 96 MG/DL (70-100); POTASSIUM SERUM 4.9 MEQ/L (3.5-5.1); SODIUM LEVEL 142 MEQ/L (136-145)
== END ==
LOC: M PLALAB 09:45
PROVIDERS: ATTEND Family Medicine
DX: R59.0 Localized enlarged lymph nodes (principal)

== ENCOUNTER → 2021-05-16 | Outpatient (CLI) | payer MEDICARE | LOC: M WHC 07:30 | PROVIDERS: ATTEND Surgery | DX: R59.1 Generalized enlarged lymph nodes (principal) ==

== ENCOUNTER → 2021-05-26 | Outpatient (CLI) | payer MEDICARE ==
[~2021-05-26] MED LIST changes: +**SFHN** LIDOCAINE 1% MDV 20ML VIAL ONE; +**SFHN** SODIUM BICARBONATE 8.4% 10MEQ 10ML VIAL ONE; +NEXI20CA PO
[2021-05-26 11:22] VITALS: BP 124/82
== END ==
LOC: M WHCPRO 10:08
PROVIDERS: ATTEND Surgery
DX: C83.30 Diffuse large B-cell lymphoma, unspecified site (principal)

== ENCOUNTER → 2021-06-22 | Outpatient (CLI) | payer MEDICARE ==
[~2021-06-22] MED LIST changes: -**SFHN** LIDOCAINE 1% MDV 20ML VIAL ONE; -**SFHN** SODIUM BICARBONATE 8.4% 10MEQ 10ML VIAL ONE; +GASTROGRAFIN SOLUTION 30ML (Q9963) As Ordered ONE; +ISOVUE-370 76% 100ML VIAL As Ordered ONE; +VITAD400CA FT
== END ==
LOC: M RAD 12:32
PROVIDERS: ATTEND Specialist
DX: R93.89 Abnormal findings on diagnostic imaging of other specified body structures (principal); C91.10 Chronic lymphocytic leukemia of B-cell type not having achieved remission
CPT/HCPCS: 70491; 71260; 74177; Q9963; Q9967

== ENCOUNTER → 2021-09-29 | Outpatient (CLI) | payer MEDICARE ==
[~2021-09-29] MED LIST changes: -GASTROGRAFIN SOLUTION 30ML (Q9963) As Ordered ONE; -GLUCTAB6 PO; +GLUCTAB7 PO; -ISOVUE-370 76% 100ML VIAL As Ordered ONE; +VALA500T5
[2021-09-29 10:31] LABS: ALBUMIN 3.9 GM/DL (3.2-5.2); ALT/SGPT 23 U/L (12-78); BILIRUBIN,TOTAL 0.5 MG/DL (0.2-1.0); BLOOD UREA NITROGEN 12 MG/DL (7-18); CALCIUM LEVEL 9.1 MG/DL (8.8-10.2); CARBON DIOXIDE LEVEL 26 MEQ/L (21-32); CHLORIDE LEVEL 111 MEQ/L (98-107); CHOLESTEROL LEVEL 198 MG/DL (<200); CREATININE FOR GFR 0.78 MG/DL (0.55-1.30); FREE T4 0.99 NG/DL (0.76-1.46); GLOMERULAR FILTRATION RATE > 60.0 (>45); GLUCOSE, FASTING 101 MG/DL (70-100); HDL CHOLESTEROL 60 MG/DL (>40); LDL CHOLESTEROL 124 MG/DL (<100); NON-HDL-C 138 MG/DL; SODIUM LEVEL 144 MEQ/L (136-145); TOTAL PROTEIN 7.2 GM/DL (6.4-8.2); TRIGLYCERIDES LEVEL 69 MG/DL (<150)
[2021-09-29 11:12] LABS: HEMOGLOBIN A1c 5.6 %
[2021-09-30 08:10] LABS: APOLIPOPROTEIN B/A-1 RATIO 0.6 ratio (0.0-0.6); INSULIN LEVEL 3.9 uIU/mL (2.6-24.9)
== END ==
LOC: M PLALAB 08:04
PROVIDERS: ATTEND Family Medicine
DX: E78.00 Pure hypercholesterolemia, unspecified (principal); R73.01 Impaired fasting glucose; E06.3 Autoimmune thyroiditis

== ENCOUNTER → 2022-03-21 | Outpatient (CLI) | payer MEDICARE ==
[2022-03-21 11:27] LABS: ALBUMIN 3.8 G/DL (3.2-5.2); CARBON DIOXIDE LEVEL 29 MMOL/L (20-31); CHLORIDE LEVEL 105 MMOL/L (98-107); POTASSIUM SERUM 4.3 MMOL/L (3.5-5.1); PTH INTACT 41.9 PG/ML (18.5-88.0); SODIUM LEVEL 140 MMOL/L (136-145)
[2022-03-21 11:31] LABS: TOTAL 25(OH) VITAMIN D 50.4 NG/ML (20.0-100.0)
[2022-03-21 11:32] LABS: THYROID PEROXIDASE ANTIBODY 518 U/ML (<60.0)
[2022-03-21 11:33] LABS: BLOOD UREA NITROGEN 16 MG/DL (9-23); GLUCOSE, FASTING 99 MG/DL (74-106); THYROID STIMULATING HORMONE 1.452 uIU/ML (0.55-4.78)
[2022-03-21 11:35] LABS: CREATININE FOR GFR 0.72 MG/DL (0.55-1.30); GLOMERULAR FILTRATION RATE > 60.0 (>45); PHOSPHORUS LEVEL 3.3 MG/DL (2.4-5.1)
[2022-03-21 11:36] LABS: FREE T4 1.03 NG/DL (0.89-1.76)
[2022-03-21 11:41] LABS: CREATININE, URINE 74.2 MG/DL
[2022-03-21 11:42] LABS: MALB URINE SIEMENS < 5.0 MG/DL; MAU/CREAT RATIO 6.7 MCG/MG (0.0-30.0)
[2022-03-21 12:07] LABS: HEMOGLOBIN A1c 5.4 % (4.0-6.0)
== END ==
LOC: M PLALAB 08:08
PROVIDERS: ATTEND Family Medicine
DX: E06.3 Autoimmune thyroiditis (principal); R73.01 Impaired fasting glucose; E55.9 Vitamin D deficiency, unspecified; Z79.899 Other long term (current) drug therapy

== ENCOUNTER → 2022-08-22 | Outpatient (CLI) | payer MEDICARE ==
[~2022-08-22] MED LIST changes: +GALZ50CA PO
[2022-08-22 12:08] LABS: HEMOGLOBIN A1c 5.4 % (4.0-6.0)
[2022-08-22 12:19] LABS: ALBUMIN 3.9 G/DL (3.2-5.2); ALKALINE PHOSPHATASE 73 U/L (46-116); ALT/SGPT 17 U/L (7.0-40); AST/SGOT 19 U/L (<34); BILIRUBIN,TOTAL 0.7 MG/DL (0.3-1.2); BLOOD UREA NITROGEN 18 MG/DL (9-23); CALCIUM LEVEL 8.9 MG/DL (8.3-10.6); CARBON DIOXIDE LEVEL 30 MMOL/L (20-31); CHLORIDE LEVEL 107 MMOL/L (98-107); CREATININE FOR GFR 0.77 MG/DL (0.55-1.30); GLOMERULAR FILTRATION RATE > 60.0 (>45); GLUCOSE, FASTING 91 MG/DL (74-106); SODIUM LEVEL 143 MMOL/L (136-145); TOTAL PROTEIN 6.5 G/DL (5.7-8.2)
[2022-08-22 12:22] LABS: FREE T4 0.97 NG/DL (0.89-1.76); THYROID STIMULATING HORMONE 2.127 uIU/ML (0.55-4.78)
== END ==
LOC: M PLALAB 08:25
PROVIDERS: ATTEND Family Medicine
DX: E06.3 Autoimmune thyroiditis (principal); R73.01 Impaired fasting glucose

== ENCOUNTER → 2022-09-01 | Outpatient (REF) | payer MEDICARE | LOC: M SFHCPLAZ 17:18 | PROVIDERS: ATTEND Family Medicine | DX: I10 Essential (primary) hypertension (principal); R73.01 Impaired fasting glucose; E55.9 Vitamin D deficiency, unspecified; E78.00 Pure hypercholesterolemia, unspecified ==

== ENCOUNTER → 2022-11-02 | Outpatient (CLI) | payer MEDICARE ==
[~2022-11-02] MED LIST changes: +GASTROGRAFIN SOLUTION 30ML As Ordered ONE; +ISOVUE-370 76% 100ML VIAL As Ordered ONE
== END ==
LOC: M RAD 09:39
PROVIDERS: ATTEND Physician Assistant Medical
DX: R59.1 Generalized enlarged lymph nodes (principal); N83.201 Unspecified ovarian cyst, right side; K59.09 Other constipation
CPT/HCPCS: 74176; Q9963

== ENCOUNTER → 2022-11-22 | Outpatient (CLI) | payer MEDICARE ==
[~2022-11-22] MED LIST changes: -GASTROGRAFIN SOLUTION 30ML As Ordered ONE; -ISOVUE-370 76% 100ML VIAL As Ordered ONE
== END ==
LOC: M WHC 06:58
PROVIDERS: ATTEND Physician Assistant Medical
DX: C83.00 Small cell B-cell lymphoma, unspecified site (principal); N83.201 Unspecified ovarian cyst, right side

== ENCOUNTER → 2023-01-05 | Outpatient (CLI) | payer MEDICARE ==
[2023-01-05 12:14] LABS: ALBUMIN 3.8 G/DL (3.2-5.2); ALKALINE PHOSPHATASE 71 U/L (46-116); ALT/SGPT 17 U/L (7.0-40); AST/SGOT 9 U/L (<34); BILIRUBIN,TOTAL 0.5 MG/DL (0.3-1.2); BLOOD UREA NITROGEN 17 MG/DL (9-23); CALCIUM LEVEL 9.2 MG/DL (8.3-10.6); CARBON DIOXIDE LEVEL 31 MMOL/L (20-31); CHLORIDE LEVEL 107 MMOL/L (98-107); CHOLESTEROL LEVEL 203 MG/DL (<200); GLOMERULAR FILTRATION RATE > 60.0 (>45); GLUCOSE, FASTING 93 MG/DL (74-106); HDL CHOLESTEROL 48.3 MG/DL (>40); LDL CHOLESTEROL 143.1 MG/DL (<100); NON-HDL-C 154.7 MG/DL; POTASSIUM SERUM 4.7 MMOL/L (3.5-5.1); SODIUM LEVEL 143 MMOL/L (136-145); TOTAL PROTEIN 6.6 G/DL (5.7-8.2); TRIGLYCERIDES LEVEL 58 MG/DL (<150)
[2023-01-05 12:16] LABS: TOTAL 25(OH) VITAMIN D 48.8 NG/ML (20.0-100.0)
[2023-01-05 12:22] LABS: HEMOGLOBIN A1c 5.6 % (4.0-6.0)
[2023-01-06 07:09] LABS: APOLIPOPROTEIN B/A-1 RATIO 0.8 ratio (0.0-0.6)
[2023-01-06 10:05] LABS: PTH INTACT 32.8 PG/ML (18.5-88.0)
== END ==
LOC: M PLALAB 07:44
PROVIDERS: ATTEND Family Medicine
DX: I10 Essential (primary) hypertension (principal); R73.01 Impaired fasting glucose; E55.9 Vitamin D deficiency, unspecified; E78.00 Pure hypercholesterolemia, unspecified

== ENCOUNTER → 2023-02-16 | Outpatient (REF) | payer MEDICARE | LOC: M SFHCPLAZ 12:12 | PROVIDERS: ATTEND Family Medicine | DX: E78.00 Pure hypercholesterolemia, unspecified (principal); R73.01 Impaired fasting glucose ==

== ENCOUNTER 2023-05-23 10:47 | Day surgery (SDC) | payer MEDICARE ==
[~2023-05-23] VITALS: Ht 160 cm; Wt 68.5 kg
[~2023-05-23 10:47] MED LIST changes: +NS 1,000 ML IV ONE; -VALA500T5; +VALA500T5 PO; -VITAD400CA FT; +VITAD400CA PO; +[UNRECOGNIZED DRUG - CODE] PO; +[UNRECOGNIZED DRUG - OTHER] PO
[2023-05-23 12:13] VITALS: TEMP 97.7
[2023-05-23] MEDS ORDERED: propofoL 200 MG/20 ML VIAL As Ordered ONE (12:16)
[2023-05-23] MEDS ORDERED: LIDOCAINE 2% 100MG/5ML SDV (FOR ANES.) As Ordered ONE (12:16)
[2023-05-23 12:30] VITALS: BP 108/68; O2SAT 96
== END 2023-05-23 12:47 | disposition home or self-care (01) ==
LOC: M OPP 10:47
PROVIDERS: ATTEND Internal Medicine Gastroenterology
DX: Z12.11 Encounter for screening for malignant neoplasm of colon (principal); K64.0 First degree hemorrhoids; K57.30 Diverticulosis of large intestine without perforation or abscess without bleeding; Z79.1 Long term (current) use of non-steroidal anti-inflammatories (NSAID); Z79.891 Long term (current) use of opiate analgesic; Z79.899 Other long term (current) drug therapy; Z88.7 Allergy status to serum and vaccine; Z91.030 Bee allergy status

== ENCOUNTER → 2023-06-06 | Outpatient (CLI) | payer MEDICARE ==
[~2023-06-06] MED LIST changes: -NS 1,000 ML IV ONE
[2023-06-06 11:29] LABS: HEMOGLOBIN A1c 5.4 % (4.0-6.0)
[2023-06-06 11:30] LABS: C REACTIVE PROTEIN QUANTITATIV < 0.40 MG/DL (<1.0)
[2023-06-06 11:31] LABS: CHOLESTEROL LEVEL 206 MG/DL (<200); CHOLESTEROL RISK RATIO 4.22 (<5); CPK CREATINE PHOSPHOKINASE 69 U/L (34-145); HDL CHOLESTEROL 48.7 MG/DL (>40); LDL CHOLESTEROL 146.1 MG/DL (<100); NON-HDL-C 157.3 MG/DL; TRIGLYCERIDES LEVEL 56 MG/DL (<150)
[2023-06-06 11:37] LABS: THYROID STIMULATING HORMONE 2.988 uIU/ML (0.55-4.78)
[2023-06-06 11:38] LABS: FREE T4 1.02 NG/DL (0.89-1.76)
== END ==
LOC: M PLALAB 09:02
PROVIDERS: ATTEND Family Medicine
DX: E78.00 Pure hypercholesterolemia, unspecified (principal); R73.01 Impaired fasting glucose

== ENCOUNTER → 2023-06-14 | Outpatient (REF) | payer MEDICARE | LOC: M SFHCPLAZ 09:45 | PROVIDERS: ATTEND Family Medicine | DX: E78.00 Pure hypercholesterolemia, unspecified (principal); I10 Essential (primary) hypertension; E06.3 Autoimmune thyroiditis; E55.9 Vitamin D deficiency, unspecified ==

== ENCOUNTER → 2023-07-24 | Outpatient (CLI) | payer MEDICARE ==
[~2023-07-24] MED LIST changes: +GASTROGRAFIN SOLUTION 30ML As Ordered ONE; +ISOVUE-370 76% 100ML VIAL As Ordered ONE
== END ==
LOC: M RAD 08:57
PROVIDERS: ATTEND Specialist
DX: C91.10 Chronic lymphocytic leukemia of B-cell type not having achieved remission (principal); R59.1 Generalized enlarged lymph nodes
CPT/HCPCS: 71260; 74177; Q9963; Q9967

== ENCOUNTER → 2023-08-07 | Outpatient (CLI) | payer MEDICARE ==
[~2023-08-07] MED LIST changes: -GASTROGRAFIN SOLUTION 30ML As Ordered ONE; -ISOVUE-370 76% 100ML VIAL As Ordered ONE
[2023-08-07 12:54] LABS: ALBUMIN 3.6 G/DL (3.2-5.2); ALKALINE PHOSPHATASE 89 U/L (46-116); ALT/SGPT 20 U/L (7.0-40); AST/SGOT 23 U/L (<34); BILIRUBIN,TOTAL 0.7 MG/DL (0.3-1.2); BLOOD UREA NITROGEN 15 MG/DL (9-23); CALCIUM LEVEL 9.5 MG/DL (8.3-10.6); CARBON DIOXIDE LEVEL 31 MMOL/L (20-31); CHLORIDE LEVEL 105 MMOL/L (98-107); CHOLESTEROL LEVEL 144 MG/DL (<200); CHOLESTEROL RISK RATIO 3.27 (<5); CREATININE FOR GFR 0.75 MG/DL (0.55-1.30); FREE T4 0.99 NG/DL (0.89-1.76); GLOMERULAR FILTRATION RATE > 60.0 (>45); GLUCOSE, FASTING 92 MG/DL (74-106); PTH INTACT 34.2 PG/ML (18.5-88.0); SODIUM LEVEL 140 MMOL/L (136-145); THYROID PEROXIDASE ANTIBODY 470 U/ML (<60.0); TOTAL PROTEIN 6.5 G/DL (5.7-8.2); TRIGLYCERIDES LEVEL 60 MG/DL (<150)
[2023-08-07 12:56] LABS: THYROID STIMULATING HORMONE 2.195 uIU/ML (0.55-4.78); TOTAL 25(OH) VITAMIN D 44.6 NG/ML (20.0-100.0)
== END ==
LOC: M PLALAB 08:03
PROVIDERS: ATTEND Family Medicine
DX: E55.9 Vitamin D deficiency, unspecified (principal); I10 Essential (primary) hypertension; E06.3 Autoimmune thyroiditis; E78.00 Pure hypercholesterolemia, unspecified

== ENCOUNTER → 2023-08-30 | Outpatient (CLI) | payer MEDICARE ==
[~2023-08-30] MED LIST changes: +ISOVUE-300 61% 100ML VIAL As Ordered ONE; +LIDOCAINE 1% MDV 20ML VIAL As Ordered ONE; +LIDOCAINE W/EPINEPHRINE 1% 20ML VIAL As Ordered ONE; +MIDAZOLAM INJ 2MG/2ML VIAL As Ordered ONE; +NS 1,000 ML IV SCH; +ROSU5TAB40; +ceFAZolin 2 GM/D5W 50 ML IV BAG As Ordered ONE; +fentaNYL 100 MCG/2 ML INJECTION As Ordered ONE
[2023-08-30 14:50] VITALS: TEMP 98
[2023-08-30] MEDS: ceFAZolin SOD 2 GM in IV 1 EA IV ONE (16:22)
[2023-08-30 17:50] VITALS: BP 128/62; O2SAT 96
== END ==
LOC: M IRPRO 14:31
PROVIDERS: ATTEND Specialist
DX: C91.10 Chronic lymphocytic leukemia of B-cell type not having achieved remission (principal)
CPT/HCPCS: 36561; 99152; 99153; C1769; J0690; J2250; J3010

== ENCOUNTER → 2023-09-04 | Outpatient (CLI) | payer MEDICARE ==
[~2023-09-04] MED LIST changes: -ISOVUE-300 61% 100ML VIAL As Ordered ONE; -LIDOCAINE W/EPINEPHRINE 1% 20ML VIAL As Ordered ONE; -MIDAZOLAM INJ 2MG/2ML VIAL As Ordered ONE; -NS 1,000 ML IV SCH; -ceFAZolin 2 GM/D5W 50 ML IV BAG As Ordered ONE; -fentaNYL 100 MCG/2 ML INJECTION As Ordered ONE
[2023-09-04 11:28] VITALS: TEMP 98.1
[2023-09-04 12:47] VITALS: BP 174/95; O2SAT 96
[2023-09-04 13:27] LABS: BASO # 0.1 10^3/uL (0.0-0.2); BASO % 0.4 % (0.0-1.0); EOS # 0.1 10^3/uL (0.0-0.5); EOS % 0.8 % (0.0-3.0); HEMATOCRIT 43.6 % (36.0-47.0); HEMOGLOBIN 14.3 g/dl (12.0-15.5); MEAN CORPUSCULAR HEMOGLOBIN 30.3 pg (27.0-33.0); MEAN CORPUSCULAR HGB CONC 32.8 g/dl (32.0-36.5); MEAN CORPUSCULAR VOLUME 92.4 fl (80.0-96.0); MONO # 1.1 10^3/uL (0.0-0.8); MONO % 6.9 % (2.0-8.0); NEUTROPHILS # 4.1 10^3/uL (1.5-8.5); NEUTROPHILS % 24.7 % (36.0-66.0); PLATELET COUNT, AUTOMATED 119 10^3/uL (150-450); RED BLOOD COUNT 4.72 10^6/uL (4.00-5.40); WHITE BLOOD COUNT 16.5 10^3/uL (4.0-10.0)
== END ==
LOC: M IRPRO 11:18
PROVIDERS: ATTEND Specialist
DX: C91.10 Chronic lymphocytic leukemia of B-cell type not having achieved remission (principal)

== ENCOUNTER 2023-10-31 15:40 | Emergency (ER) | payer MEDICARE ==
[~2023-10-31 15:40] MED LIST changes: +ALLO100T PO; +LIDO30CR18 TOP; -LIDOCAINE 1% MDV 20ML VIAL As Ordered ONE; +VENC1TAB PO
[2023-10-31 17:43] LABS: HEMATOCRIT 39.8 % (36.0-47.0); HEMOGLOBIN 13.1 g/dl (12.0-15.5); MEAN CORPUSCULAR HEMOGLOBIN 30.3 pg (27.0-33.0); MEAN CORPUSCULAR HGB CONC 32.9 g/dl (32.0-36.5); MEAN CORPUSCULAR VOLUME 92.1 fl (80.0-96.0); RED BLOOD COUNT 4.32 10^6/uL (4.00-5.40); WHITE BLOOD COUNT 2.9 10^3/uL (4.0-10.0)
[2023-10-31 17:48] LABS: BLOOD UREA NITROGEN 18 MG/DL (9-23); CALCIUM LEVEL 8.6 MG/DL (8.3-10.6); CARBON DIOXIDE LEVEL 26 MMOL/L (20-31); CHLORIDE LEVEL 110 MMOL/L (98-107); CREATININE FOR GFR 0.81 MG/DL (0.55-1.30); GLOMERULAR FILTRATION RATE > 60.0 (>45); GLUCOSE, FASTING 121 MG/DL (74-106); POTASSIUM SERUM 3.7 MMOL/L (3.5-5.1); SODIUM LEVEL 139 MMOL/L (136-145)
[2023-10-31 18:02] LABS: PLATELET COUNT, AUTOMATED 71 10^3/uL (150-450)
[2023-10-31 18:04] LABS: CK-MB VALUE MASS < 1.0 NG/ML (<3.6)
[2023-10-31 18:10] LABS: CPK CREATINE PHOSPHOKINASE 57 U/L (34-145); MB/CK RELATIVE INDEX 1.75 (< OR =4)
[2023-10-31 18:49] LABS: CK-MB VALUE MASS < 1.0 NG/ML (<3.6)
[2023-10-31 18:52] LABS: CPK CREATINE PHOSPHOKINASE 57 U/L (34-145); MB/CK RELATIVE INDEX 1.75 (< OR =4)
[2023-10-31 18:57] VITALS: TEMP 97.5
[2023-10-31 20:03] LABS: CK-MB VALUE MASS < 1.0 NG/ML (<3.6)
[2023-10-31 20:09] LABS: CPK CREATINE PHOSPHOKINASE 53 U/L (34-145); MB/CK RELATIVE INDEX 1.88 (< OR =4)
[2023-10-31 21:00] VITALS: BP 121/70
[2023-10-31 21:14] VITALS: O2SAT 96
[2023-10-31] MEDS: SODIUM CHLORIDE 0.9% INJ 10 ML SYR IV PRN (21:31)
[2023-11-01] MEDS ORDERED: MV-M1TAB13 PO (13:03)
== END 2023-10-31 21:32 | disposition home or self-care (01) ==
LOC: M ED 15:40
DX: R55 Syncope and collapse (principal); K21.9 Gastro-esophageal reflux disease without esophagitis; Z88.7 Allergy status to serum and vaccine; Z91.030 Bee allergy status; Z79.899 Other long term (current) drug therapy

== ENCOUNTER → 2023-11-27 | Outpatient (CLI) | payer MEDICARE ==
[~2023-11-27] MED LIST changes: +CEPH500C PO; +ISOVUE-370 76% 100ML VIAL As Ordered ONE; +LEVO1TAB39 PO; +MV-M1TAB13 PO; +VENC100T PO
== END ==
LOC: M RAD 07:17
PROVIDERS: ATTEND Specialist
DX: C91.10 Chronic lymphocytic leukemia of B-cell type not having achieved remission (principal); R59.0 Localized enlarged lymph nodes; R91.8 Other nonspecific abnormal finding of lung field
CPT/HCPCS: 71260; Q9967

== ENCOUNTER 2023-12-23 02:19 | Emergency (ER) | payer MEDICARE ==
[~2023-12-23] VITALS: Ht 160 cm; Wt 68.9 kg
[~2023-12-23 02:19] MED LIST changes: +DIPH-435 PO; -ISOVUE-370 76% 100ML VIAL As Ordered ONE
[2023-12-23] MEDS: methylPREDNISolone 125MG 2ML VIAL IV ONE (04:34)
[2023-12-23] MEDS: diphenhydrAMINE 50MG/ML VIAL IV ONE (04:37)
[2023-12-23] MEDS: FAMOTIDINE 20MG/2ML VIAL IVP ONE (07:15)
[2023-12-23] MEDS ORDERED: PRED20TA PO (07:47)
[2023-12-23 08:05] VITALS: BP 138/81; TEMP 97.2; O2SAT 97
[2024-01-03] MEDS ORDERED: ZYRTTAB8 PO (11:33)
== END 2023-12-23 08:16 | disposition home or self-care (01) ==
LOC: M ED 02:19
DX: T78.40XA Allergy, unspecified, initial encounter (principal); T78.3XXA Angioneurotic edema, initial encounter; T63.441A Toxic effect of venom of bees, accidental (unintentional), initial encounter; K21.9 Gastro-esophageal reflux disease without esophagitis; E78.5 Hyperlipidemia, unspecified; Z88.7 Allergy status to serum and vaccine; Z91.030 Bee allergy status; Z91.048 Other nonmedicinal substance allergy status; Z79.52 Long term (current) use of systemic steroids; Z79.899 Other long term (current) drug therapy
CPT/HCPCS: 93041; 94760; 96374; 96375; 99284; J1200; J2919

== ENCOUNTER → 2024-01-25 | Outpatient (CLI) | payer MEDICARE ==
[~2024-01-25] MED LIST changes: +ONDA-284 PO; +ZYRTTAB8 PO
[2024-01-25 10:48] LABS: EOS % 0.8 % (0.0-3.0); HEMATOCRIT 46.3 % (36.0-47.0); HEMOGLOBIN 15.3 g/dl (12.0-15.5); LYMPH # 1.3 10^3/uL (1.5-5.0); LYMPH % 37.9 % (24.0-44.0); MEAN CORPUSCULAR VOLUME 90.8 fl (80.0-96.0); MONO # 0.3 10^3/uL (0.0-0.8); MONO % 7.9 % (2.0-8.0); NEUTROPHILS # 1.9 10^3/uL (1.5-8.5); NEUTROPHILS % 53.1 % (36.0-66.0); PLATELET COUNT, AUTOMATED 144 10^3/uL (150-450); WHITE BLOOD COUNT 3.5 10^3/uL (4.0-10.0)
[2024-01-25 10:56] LABS: ALBUMIN 3.9 G/DL (3.2-5.2); ALKALINE PHOSPHATASE 91 U/L (46-116); ALT/SGPT 17 U/L (7.0-40); AST/SGOT 14 U/L (<34); BILIRUBIN,TOTAL 0.6 MG/DL (0.3-1.2); BLOOD UREA NITROGEN 13 MG/DL (9-23); CALCIUM LEVEL 9.7 MG/DL (8.3-10.6); CARBON DIOXIDE LEVEL 30 MMOL/L (20-31); CHLORIDE LEVEL 106 MMOL/L (98-107); CHOLESTEROL LEVEL 135 MG/DL (<200); CHOLESTEROL RISK RATIO 2.16 (<5); CREATININE FOR GFR 0.73 MG/DL (0.55-1.30); FREE T4 1.11 NG/DL (0.89-1.76); GLOMERULAR FILTRATION RATE > 60.0 (>45); GLUCOSE, FASTING 99 MG/DL (74-106); HDL CHOLESTEROL 62.3 MG/DL (>40); LDL CHOLESTEROL 64.3 MG/DL (<100); NON-HDL-C 72.7 MG/DL; POTASSIUM SERUM 4.1 MMOL/L (3.5-5.1); PTH INTACT 35.3 PG/ML (18.5-88.0); SODIUM LEVEL 138 MMOL/L (136-145); TOTAL PROTEIN 6.8 G/DL (5.7-8.2); TRIGLYCERIDES LEVEL 42 MG/DL (<150)
[2024-01-25 10:57] LABS: FERRITIN 29.1 NG/ML (7.3-270.7); THYROID STIMULATING HORMONE 1.456 uIU/ML (0.55-4.78)
[2024-01-25 10:58] LABS: TOTAL 25(OH) VITAMIN D 46.1 NG/ML (20.0-100.0)
[2024-01-25 11:13] LABS: HEMOGLOBIN A1c 5.2 % (4.0-6.0)
== END ==
LOC: M PLALAB 08:08
PROVIDERS: ATTEND Family Medicine
DX: R73.01 Impaired fasting glucose (principal); D50.9 Iron deficiency anemia, unspecified; E07.9 Disorder of thyroid, unspecified; E78.00 Pure hypercholesterolemia, unspecified

== ENCOUNTER → 2024-01-25 | Outpatient (CLI) | payer MEDICARE ==
[2024-01-25 10:49] LABS: BASO % 0.3 % (0.0-1.0); EOS % 1.1 % (0.0-3.0); HEMATOCRIT 46.1 % (36.0-47.0); HEMOGLOBIN 15.1 g/dl (12.0-15.5); LYMPH # 1.3 10^3/uL (1.5-5.0); LYMPH % 35.8 % (24.0-44.0); MEAN CORPUSCULAR HEMOGLOBIN 29.8 pg (27.0-33.0); MEAN CORPUSCULAR HGB CONC 32.8 g/dl (32.0-36.5); MEAN CORPUSCULAR VOLUME 91.1 fl (80.0-96.0); MONO # 0.4 10^3/uL (0.0-0.8); MONO % 9.8 % (2.0-8.0); NEUTROPHILS # 1.9 10^3/uL (1.5-8.5); PLATELET COUNT, AUTOMATED 138 10^3/uL (150-450); RED BLOOD COUNT 5.06 10^6/uL (4.00-5.40); WHITE BLOOD COUNT 3.6 10^3/uL (4.0-10.0)
[2024-01-25 10:53] LABS: ALBUMIN 3.8 G/DL (3.2-5.2); ALKALINE PHOSPHATASE 90 U/L (46-116); ALT/SGPT 18 U/L (7.0-40); AST/SGOT 14 U/L (<34); BILIRUBIN,TOTAL 0.6 MG/DL (0.3-1.2); BLOOD UREA NITROGEN 14 MG/DL (9-23); CALCIUM LEVEL 9.7 MG/DL (8.3-10.6); CARBON DIOXIDE LEVEL 30 MMOL/L (20-31); CHLORIDE LEVEL 106 MMOL/L (98-107); CREATININE FOR GFR 0.72 MG/DL (0.55-1.30); GLOMERULAR FILTRATION RATE > 60.0 (>45); GLUCOSE, FASTING 99 MG/DL (74-106); POTASSIUM SERUM 4.4 MMOL/L (3.5-5.1); SODIUM LEVEL 139 MMOL/L (136-145); TOTAL PROTEIN 6.7 G/DL (5.7-8.2)
== END ==
LOC: M PLALAB 08:07
PROVIDERS: ATTEND Specialist
DX: C91.10 Chronic lymphocytic leukemia of B-cell type not having achieved remission (principal)

== ENCOUNTER → 2024-03-07 | Outpatient (CLI) | payer MEDICARE ==
[~2024-03-07] MED LIST changes: +ISOVUE-370 76% 100ML VIAL As Ordered ONE; -ROSU5TAB40; +ROSU5TAB49
== END ==
LOC: M RAD 09:33
PROVIDERS: ATTEND Specialist
DX: C91.10 Chronic lymphocytic leukemia of B-cell type not having achieved remission (principal)
CPT/HCPCS: 71260; 74177; J1642; Q9967

== ENCOUNTER 2024-04-01 01:42 | Emergency (ER) | payer MEDICARE ==
[~2024-04-01] VITALS: Ht 160 cm; Wt 72.7 kg
[~2024-04-01 01:42] MED LIST changes: -ISOVUE-370 76% 100ML VIAL As Ordered ONE
[2024-04-01 02:43] LABS: BASO % 0.3 % (0.0-1.0); EOS % 0.3 % (0.0-3.0); HEMATOCRIT 41.2 % (36.0-47.0); HEMOGLOBIN 14.1 g/dl (12.0-15.5); LYMPH # 1.2 10^3/uL (1.5-5.0); LYMPH % 30.7 % (24.0-44.0); MEAN CORPUSCULAR HEMOGLOBIN 30.6 pg (27.0-33.0); MEAN CORPUSCULAR HGB CONC 34.2 g/dl (32.0-36.5); MEAN CORPUSCULAR VOLUME 89.4 fl (80.0-96.0); MONO # 0.4 10^3/uL (0.0-0.8); MONO % 11.1 % (2.0-8.0); NEUTROPHILS # 2.3 10^3/uL (1.5-8.5); NEUTROPHILS % 57.3 % (36.0-66.0); PLATELET COUNT, AUTOMATED 133 10^3/uL (150-450); RED BLOOD COUNT 4.61 10^6/uL (4.00-5.40)
[2024-04-01 03:11] LABS: LIPASE 27 U/L (12-53)
[2024-04-01 03:13] LABS: ALBUMIN 3.5 G/DL (3.2-5.2); ALKALINE PHOSPHATASE 111 U/L (35-104); ALT/SGPT 23 U/L (7.0-40); AST/SGOT 23 U/L (<34); BILIRUBIN,DIRECT 0.3 MG/DL (<0.4); BILIRUBIN,TOTAL 0.9 MG/DL (0.3-1.2); BLOOD UREA NITROGEN 14 MG/DL (9-23); CALCIUM LEVEL 9.3 MG/DL (8.3-10.6); CARBON DIOXIDE LEVEL 26 MMOL/L (20-31); CHLORIDE LEVEL 107 MMOL/L (98-107); CREATININE FOR GFR 0.65 MG/DL (0.55-1.30); GLOMERULAR FILTRATION RATE > 60.0 (>39); GLUCOSE, FASTING 99 MG/DL (74-106); POTASSIUM SERUM 3.8 MMOL/L (3.5-5.1); SODIUM LEVEL 142 MMOL/L (136-145); TOTAL PROTEIN 6.7 G/DL (5.7-8.2)
[2024-04-01 05:45] LABS: CK-MB VALUE MASS < 1.0 NG/ML (<3.6)
[2024-04-01 05:47] LABS: CPK CREATINE PHOSPHOKINASE 86 U/L (34-145); MB/CK RELATIVE INDEX 1.16 (< OR =4)
[2024-04-01] MEDS: ONDANSETRON 4MG 2ML VIAL IV ONE (07:20)
[2024-04-01] MEDS ORDERED: ISOVUE-370 76% 100ML VIAL As Ordered ONE (07:27)
[2024-04-01] MEDS: ACETAMINOPHEN *IV* 1,000 MG in IV 1 EA IV ONE (07:44)
[2024-04-01] MEDS: KETOROLAC 30 MG/ML 1ML VIAL IV ONE (09:08)
[2024-04-01 10:10] LABS: CK-MB VALUE MASS 1.2 NG/ML (<3.6)
[2024-04-01 10:15] LABS: CPK CREATINE PHOSPHOKINASE 101 U/L (34-145); MB/CK RELATIVE INDEX 1.18 (< OR =4)
[2024-04-01 10:43] VITALS: BP 128/63; TEMP 96.4; O2SAT 95
== END 2024-04-01 10:59 | disposition home or self-care (01) ==
LOC: M ED 01:42
DX: R10.9 Unspecified abdominal pain (principal); Z88.7 Allergy status to serum and vaccine; Z91.030 Bee allergy status; Z91.048 Other nonmedicinal substance allergy status; Z79.899 Other long term (current) drug therapy
CPT/HCPCS: 74177; 80048; 80076; 81001; 82550; 82553; 83690; 84484; 85025; 93005; 96365; 96375; 99284; J0131; J1885; Q9967

== ENCOUNTER → 2024-04-28 | Outpatient (CLI) | payer MEDICARE | LOC: M PLALAB 09:37 | PROVIDERS: ATTEND Obstetrics & Gynecology | DX: N83.201 Unspecified ovarian cyst, right side (principal) ==

== ENCOUNTER → 2024-06-30 | Outpatient (CLI) | payer MEDICARE ==
[2024-06-30 11:15] LABS: HEMOGLOBIN A1c 5.5 % (4.0-6.0)
[2024-06-30 11:21] LABS: ALBUMIN 3.6 G/DL (3.2-5.2); ALKALINE PHOSPHATASE 108 U/L (35-104); ALT/SGPT 22 U/L (7.0-40); AST/SGOT 23 U/L (<34); BILIRUBIN,TOTAL 0.5 MG/DL (0.3-1.2); BLOOD UREA NITROGEN 17 MG/DL (9-23); CARBON DIOXIDE LEVEL 29 MMOL/L (20-31); CHLORIDE LEVEL 106 MMOL/L (98-107); CHOLESTEROL LEVEL 146 MG/DL (<200); CHOLESTEROL RISK RATIO 2.32 (<5); CREATININE FOR GFR 0.71 MG/DL (0.55-1.30); GLOMERULAR FILTRATION RATE > 60.0 (>39); GLUCOSE, FASTING 97 MG/DL (74-106); HDL CHOLESTEROL 62.8 MG/DL (>40); LDL CHOLESTEROL 69.2 MG/DL (<100); NON-HDL-C 83.2 MG/DL; POTASSIUM SERUM 4.4 MMOL/L (3.5-5.1); PTH INTACT 38.2 PG/ML (18.5-88.0); SODIUM LEVEL 141 MMOL/L (136-145); TOTAL PROTEIN 6.6 G/DL (5.7-8.2); TRIGLYCERIDES LEVEL 70 MG/DL (<150)
[2024-06-30 11:23] LABS: FREE T4 1.08 NG/DL (0.89-1.76); THYROID STIMULATING HORMONE 1.845 uIU/ML (0.55-4.78)
[2024-06-30 11:24] LABS: TOTAL 25(OH) VITAMIN D 42.7 NG/ML (20.0-100.0)
[2024-06-30 11:33] LABS: MAU/CREAT RATIO 3.2 MCG/MG (0.0-30.0)
== END ==
LOC: M PLALAB 08:23
PROVIDERS: ATTEND Family Medicine
DX: I10 Essential (primary) hypertension (principal)

== ENCOUNTER → 2024-07-04 | Outpatient (REF) | payer MEDICARE | LOC: M SFHCPLAZ 13:16 | PROVIDERS: ATTEND Family Medicine | DX: I10 Essential (primary) hypertension (principal); E06.3 Autoimmune thyroiditis; R73.01 Impaired fasting glucose; D50.9 Iron deficiency anemia, unspecified; E78.00 Pure hypercholesterolemia, unspecified ==

== ENCOUNTER → 2024-07-04 | Outpatient (CLI) | payer MEDICARE | LOC: M PLALAB 14:06 → M PLAIMG 14:06 | PROVIDERS: ATTEND Family Medicine | DX: M47.814 Spondylosis without myelopathy or radiculopathy, thoracic region (principal) ==

== ENCOUNTER → 2024-07-25 | Outpatient (CLI) | payer MEDICARE | LOC: M PLARAD 08:37 | PROVIDERS: ATTEND Family Medicine | DX: S22.080A Wedge compression fracture of T11-T12 vertebra, initial encounter for closed fracture (principal) ==

== ENCOUNTER → 2024-08-06 | Outpatient (CLI) | payer MEDICARE ==
[~2024-08-06] MED LIST changes: +ISOVUE-370 76% 100ML VIAL As Ordered ONE
== END ==
LOC: M RAD 16:30
PROVIDERS: ATTEND Nurse Practitioner Women's Health
DX: C91.10 Chronic lymphocytic leukemia of B-cell type not having achieved remission (principal); R59.0 Localized enlarged lymph nodes; J84.10 Pulmonary fibrosis, unspecified
CPT/HCPCS: 71260; 74177; Q9967

== ENCOUNTER → 2024-12-02 | Outpatient (CLI) | payer MEDICARE ==
[~2024-12-02] MED LIST changes: -GALZ50CA PO; -ISOVUE-370 76% 100ML VIAL As Ordered ONE; +ZINC50CA4 PO
[2024-12-02 12:52] LABS: CREATININE, URINE 58.0 MG/DL; MALB URINE SIEMENS < 3.0 MG/L
[2024-12-02 12:54] LABS: ESTIMATED AVERAGE GLUCOSE 114.0 MG/DL (60-110); IRON (FE) 126.0 UG/DL (50-170); PERCENT SATURATION 40.6 % (13.2-45.0)
[2024-12-02 12:55] LABS: ALT/SGPT 20.0 U/L (7.0-40); AST/SGOT 23.0 U/L (<34); CALCIUM LEVEL 9.0 MG/DL (8.3-10.6); CARBON DIOXIDE LEVEL 31.0 MMOL/L (20-31); CHLORIDE LEVEL 106.0 MMOL/L (98-107); CHOLESTEROL LEVEL 152.0 MG/DL (<200); CHOLESTEROL RISK RATIO 2.49 (<5); CPK CREATINE PHOSPHOKINASE 84.0 U/L (34-145); CREATININE FOR GFR 0.76 MG/DL (0.55-1.30); GLOMERULAR FILTRATION RATE 84.2 (>39); LDL CHOLESTEROL 73.0 MG/DL (<100); NON-HDL-C 91.0 MG/DL; POTASSIUM SERUM 4.1 MMOL/L (3.5-5.1); SODIUM LEVEL 144.0 MMOL/L (136-145); TRIGLYCERIDES LEVEL 90.0 MG/DL (<150)
[2024-12-02 12:56] LABS: FREE T4 1.14 NG/DL (0.89-1.76); PTH INTACT 34.7 PG/ML (18.5-88.0)
[2024-12-02 12:57] LABS: TOTAL 25(OH) VITAMIN D 50.2 NG/ML (20.0-100.0)
[2024-12-04 10:57] LABS: INSULIN LEVEL 6.6 uIU/mL (<=18.4)
== END ==
LOC: M PLALAB 08:03
PROVIDERS: ATTEND Family Medicine
DX: I10 Essential (primary) hypertension (principal); R73.01 Impaired fasting glucose; E78.00 Pure hypercholesterolemia, unspecified; D50.9 Iron deficiency anemia, unspecified; K76.0 Fatty (change of) liver, not elsewhere classified; E55.9 Vitamin D deficiency, unspecified

== ENCOUNTER 2025-01-14 14:54 | Emergency (ER) | payer MEDICARE ==
[~2025-01-14] VITALS: Ht 160 cm; Wt 74.3 kg
[2025-01-14 15:39] LABS: BASO # 0.0 10^3/uL (0.0-0.2); BASO % 0.2 % (0.0-1.0); EOS # 0.0 10^3/uL (0.0-0.5); EOS % 0.0 % (0.0-3.0); LYMPH # 1.1 10^3/uL (1.5-5.0); LYMPH % 13.3 % (24.0-44.0); MONO # 0.4 10^3/uL (0.0-0.8); MONO % 4.3 % (2.0-8.0); NEUTROPHILS # 6.7 10^3/uL (1.5-8.5); NEUTROPHILS % 82.1 % (36.0-66.0); PLATELET COUNT, AUTOMATED 151 10^3/uL (150-450)
[2025-01-14 16:06] LABS: ALT/SGPT 21 U/L (7.0-40); AST/SGOT 21 U/L (<34); CALCIUM LEVEL 9.0 MG/DL (8.3-10.6); CARBON DIOXIDE LEVEL 25 MMOL/L (20-31); CHLORIDE LEVEL 103 MMOL/L (98-107); CREATININE FOR GFR 0.62 MG/DL (0.55-1.30); GLOMERULAR FILTRATION RATE > 90.0 (>39); POTASSIUM SERUM 3.8 MMOL/L (3.5-5.1); SODIUM LEVEL 136 MMOL/L (136-145)
[2025-01-14 16:56] LABS: KETONE, URINE AUTO RFX NEGATIVE (NEGATIVE); LEUKOCYTE ESTERASE UR AUTO RFX NEGATIVE (NEGATIVE); NITRITE, URINE AUTO RFX NEGATIVE (NEGATIVE); RBC, URINE AUTO RFX 0 /HPF (0-3); SQUAM EPITHELIAL CELL UR AURFX 0 /HPF (0-6); WBC, URINE AUTO RFX 0 /HPF (0-3)
[2025-01-14] MEDS: NS 500 ML IV ONE (17:03)
[2025-01-14] MEDS ORDERED: ISOVUE-370 76% 100 ML VIAL As Ordered ONE (17:18)
[2025-01-14 18:47] VITALS: TEMP 98.3
[2025-01-14 19:01] VITALS: BP 157/81; O2SAT 98
[2025-01-14] MEDS: KETOROLAC 30 MG/ML 1 ML VIAL IV ONE (19:07)
== END 2025-01-14 19:14 | disposition home or self-care (01) ==
LOC: M ED 14:54
DX: N83.291 Other ovarian cyst, right side (principal); R10.31 Right lower quadrant pain; E78.5 Hyperlipidemia, unspecified; Z88.8 Allergy status to other drugs, medicaments and biological substances; Z91.030 Bee allergy status; Z79.899 Other long term (current) drug therapy; Z79.2 Long term (current) use of antibiotics
CPT/HCPCS: 74177; 76830; 76856; 80048; 80076; 81001; 83690; 85025; 93976; 96374; 99284; J1885; Q9967

== ENCOUNTER → 2025-02-17 | Outpatient (CLI) | payer MEDICARE ==
[~2025-02-17] VITALS: Ht 160 cm; Wt 75.0 kg
[2025-02-17] MEDS: NS (Normal Saline) 0.9% 1,000 ML IV SCH (13:30)
[2025-02-17] MEDS: ceFAZolin SODIUM 2 GM in DEXTROSE 5% (D5W) ADV/MINI-BAG 50 ML IV ONE (13:30)
[2025-02-17] MEDS: MIDAZOLAM INJ 2 MG/2 ML VIAL IV PRN (13:31)
[2025-02-17] MEDS: LIDOCAINE 1% MDV 20 ML VIAL SC SCH (13:31)
[2025-02-17 13:50] VITALS: BP 173/81; O2SAT 99
== END ==
LOC: M IRPRO 12:36
DX: C91.10 Chronic lymphocytic leukemia of B-cell type not having achieved remission (principal)
CPT/HCPCS: 36590; J0688

== ENCOUNTER → 2025-03-02 | Outpatient (POV) | payer MEDICARE ==
[2025-03-02 10:30] VITALS: BP 133/87; O2SAT 96
== END ==
LOC: M IRPOV 10:03
PROVIDERS: ATTEND Registered Nurse School
DX: Z48.812 Encounter for surgical aftercare following surgery on the circulatory system (principal); Z91.040 Latex allergy status; Z91.048 Other nonmedicinal substance allergy status; Z88.7 Allergy status to serum and vaccine